=== PATIENT | female | born 1955 ===

== ENCOUNTER 2021-03-03 11:22 | Outpatient (REF) | payer OTHER, SELFPAY | END 2021-03-03 11:23 | disposition home or self-care (01) | LOC: HO.LAB 11:22 | PROVIDERS: Visit Provider Internal Medicine | DX: Z20.822 Contact with and (suspected) exposure to COVID-19 (principal) | CPT/HCPCS: C9803; U0003; U0005 ==

== ENCOUNTER 2021-03-04 09:23 | Emergency (ER) | payer OTHER, SELFPAY ==
--- NOTE | 2021-03-04 09:35 | ED.NAVMDI ---
HPI - Nausea/Vomiting/Diarrhea General Chief complaint: Dizziness Stated complaint: vomiting Time Seen by Provider: 03/04/21 09:33 Source: patient Mode of arrival: ambulatory Limitations: no limitations History of Present Illness HPI Narrative: 65 y/o female with history of asthma, s/p TYRON/BSO, HTN, HLD, anxiety and newly diagnosed DM who presents to the ER with 3 hours of nausea & vomiting. She states she feels weak and dizzy. She denies abdominal pain but is slightly sore from vomiting. She states this started at 6am when she got up to use the bathroom. When she got back to the bed she felt like the room was spinning and she was very dizzy. She felt like she was going to pass out and then started vomiting. She had a normal BM yesterday, no diarrhea. She last ate chicken wings for dinner last night. No one else ate the wings. No one else at home is vomiting. No fever, chills, or urinary symptoms. She states she was diagnosed with diabetes or pre-diabetes recently. She was not started on any medications and does not have a glucometer at home to check her sugars yet. She was tested for COVID yesterday (still pending) as she is supposed to be going to [place] tomorrow. MD elicited complaint: nausea and vomiting Onset (ago): hour(s) (3) Description of vomiting: watery Associated nausea: Yes Associated abdominal pain: Yes (soreness ) Location of pain: diffuse Pain consistency: intermittent Severity: mild Quality: aching Exacerbating factors: vomiting Relieving factors: none Associated symptoms: loss of appetite, malaise and weakness Related Data Previous Rx's Medication Instructions Recorded meclizine 25 mg PO TID PRN #10 tab 03/04/21 ondansetron 4 mg PO TID PRN #10 tab 03/04/21 Allergies Allergy/AdvReac Type Severity Reaction Status Date / Time acetaminophen [From PERCOCET] Allergy Intermediate PALPITATION Unverified 07/11/20 14:55 oxycodone [From PERCOCET] Allergy Intermediate PALPITATION Unverified 07/11/20 14:55 penicillin G [PENICILLIN G] Allergy Intermediate RASH Unverified 07/11/20 14:55 Sulfa (Sulfonamide Allergy Intermediate RASH Unverified 07/11/20 14:55 Antibiotics) [SULFA (SULFONAMIDE ANTIBIOTICS)] Review of Systems Review of Systems: Constitutional: No Fever, No Chills ENT/Mouth: No sore throat, No Rhinorrhea, No Swallowing Difficulty Cardiovascular: No Chest Pain, No SOB Respiratory: No Cough, No Sputum Gastrointestinal: + Nausea, + Vomiting, No Diarrhea, No abdominal Pain, No Hematochezia, No Melena Genitourinary: No Dysuria, No Urinary Frequency, No Hematuria Musculoskeletal: No joint pain, No Myalgias Skin: No Skin Lesions, No rash Neuro: + Weakness, No Numbness, + Dizziness, No Headache Psych: + Anxiety/Panic, No Depression Heme/Lymph: No Bruising, No Lymphadenopathy Endocrine: No Polyuria, No Polydipsia Gastrointestinal: Gastrointestinal: Reports nausea PMFSH Past Medical History Attestation statement: The following information was validated with the patient. Medical History (Updated 03/04/21 @ 11:50 by JT Huffman) Anxiety Diabetes Hyperlipidemia Hypertension Surgical History (Updated 03/04/21 @ 09:50 by Lexx Do) H/O: hysterectomy Social History Social History Alcohol intake: never Smoking Status: Never smoker Use of substances other than those prescribed or required for medical reasons: No Advance Directives: Yes Advance Directives Information Provided: Yes Advance Directives on File: No Physical Exam Vital Signs: Vital Signs: Last Vital Signs Temp 97.8 F 03/04/21 09:48 Pulse 70 03/04/21 09:57 Resp 14 03/04/21 09:48 BP 142/77 H 03/04/21 09:57 Pulse Ox 96 03/04/21 09:48 Body Mass Index 33.8 Appearance: Alert. Oriented X3. No acute distress. Eyes: Pupils equal, round and reactive to light. EOMI, no nystagmus. ENT: Pharynx normal. Normal TM's bilaterally. Neck: Normal inspection. Neck supple. CVS: Normal heart rate and rhythm. Pulses normal. Respiratory: No respiratory distress. Breath sounds normal. Abdomen: Soft and nontender. +BS x4 Skin: Skin warm and dry. Normal skin color. Normal skin turgor. No rashes. Extremities: No lower extremity edema. Neuro: Oriented X 3. No motor deficit. No sensory deficit. Normal heel to oropeza and normal finger to nose bilaterally. Steady gait. Speech is normal. CN II-XII intact. Course Course Course Narrative: 65 y/o female presenting with acute onset of dizziness and vomiting that started 3-4 hours prior to arrival. Reported feeling like the room was spinning and pre-syncopal when she was vomiting. No abdominal pain. Neuro exam is non-focal. Dizziness significantly improved when she arrived, still nauseated. Will check orthostatics, labs, COVID, EKG. Doubt acute CVA given improvement and non-focal exam. Will treat with meclizine and reassess. Reevaluation(s) Reevaluation #1: Lab workup unremarkable. EKG normal. Orthostatics negative. Dizziness improved with meclizine, now gone. Nausea resolved. She is comfortable with d/c home, plan to f/u with PCP. Warning signs discussed to warrant emergent reassessment. Stable for d/c. MDM - Nausea/Vomiting/Diarrhea Medical Records Attestation: I reviewed the patient's medical records. Lab Data Attestation: I reviewed the patient's lab results. Result diagrams: 03/04/21 09:51 03/04/21 09:51 Labs: Lab Results 03/04/21 03/04/21 03/04/21 Range/Units 09:42 09:51 09:51 WBC 5.5 (4.8-10.8) X10*3/uL RBC 5.09 (4.20-5.50) X10*6/uL Hgb 11.9 L (12.0-16.0) g/dl Hct 38.6 (37-47) % MCV 75.8 L (80-98) fL MCH 23.4 L (27.0-33.0) pg MCHC 30.8 L (31.0-35.0) g/dl RDW 14.9 (11.0-16.0) % Plt Count 280 (160-400) X10*3/uL MPV 10.1 (9.4-12.3) fL Immature Gran % (Auto) 0.4 (0.0-0.4) % Neut % (Auto) 75.3 H (45-73) % Lymph % (Auto) 18.5 L (20-40) % [place] % (Auto) 4.8 (2-11) % Eos % (Auto) 0.4 (0-4) % Baso % (Auto) 0.6 (0-2) % Lymph # (Auto) 1.0 L (1.2-4.9) X10*3/uL [place] # (Auto) 0.3 (0.1-1.2) X10*3/uL Eos # (Auto) 0.0 (0.0-0.4) X10*3/uL Baso # (Auto) 0.0 (0.0-0.2) X10*3/uL Abs Immat Gran (auto) 0.02 (0.00-0.03) X10*3/uL Absolute Neuts (auto) 4.1 (2.0-8.3) X10*3/uL Absolute Nucleated RBC 0.000 (0.0-0.012) X10*3/uL Nucleated RBC % (auto) 0.0 (0.0-0.2) /100WBC Hold Blue Top SEE NOTE Sodium (135-145) mmol/L Potassium (3.3-5.1) mmol/L Chloride (96-108) mmol/L Carbon Dioxide (22-29) mmol/L Anion Gap (12-20) BUN (9-16) mg/dL Creatinine (0.5-1.4) mg/dL Estim Creat Clear Calc Estimated GFR POC Glucose 140 H (60-115) mg/dL Random Glucose (60-115) mg/dL Calcium (8.4-10.2) mg/dL Magnesium (1.6-2.6) mg/dL Total Bilirubin (0.0-1.0) mg/dL Direct Bilirubin (0.0-0.5) mg/dL AST (5-31) U/L ALT (0-31) U/L Alkaline Phosphatase (39-117) U/L Troponin I High Sens (<3.5-17.0) ng/L Total Protein (6.5-8.0) g/dL Albumin (3.5-5.0) g/dL Lipase (8-78) U/L Urine Color Urine Appearance Urine pH (5.0-8.0) Ur Specific [place] (1.005-1.025) Urine Protein (NEG-TRACE) MG/DL Urine Glucose (UA) (NEG) MG/DL Urine Ketones (NEG) MG/DL Urine Blood (NEG) Urine Nitrite (NEG) Ur Leukocyte Esterase (NEG) Coronavirus (PCR) (Negative) Influenza Type A (PCR) (Negative) Influenza Type B (PCR) (Negative) RSV RNA Qual (PCR) (Negative) 03/04/21 03/04/21 03/04/21 Range/Units 09:51 09:51 10:18 WBC (4.8-10.8) X10*3/uL RBC (4.20-5.50) X10*6/uL Hgb (12.0-16.0) g/dl Hct (37-47) % MCV (80-98) fL MCH (27.0-33.0) pg MCHC (31.0-35.0) g/dl RDW (11.0-16.0) % Plt Count (160-400) X10*3/uL MPV (9.4-12.3) fL Immature Gran % (Auto) (0.0-0.4) % Neut % (Auto) (45-73) % Lymph % (Auto) (20-40) % [place] % (Auto) (2-11) % Eos % (Auto) (0-4) % Baso % (Auto) (0-2) % Lymph # (Auto) (1.2-4.9) X10*3/uL [place] # (Auto) (0.1-1.2) X10*3/uL Eos # (Auto) (0.0-0.4) X10*3/uL Baso # (Auto) (0.0-0.2) X10*3/uL Abs Immat Gran (auto) (0.00-0.03) X10*3/uL Absolute Neuts (auto) (2.0-8.3) X10*3/uL Absolute Nucleated RBC (0.0-0.012) X10*3/uL Nucleated RBC % (auto) (0.0-0.2) /100WBC Hold Blue Top Sodium 139 (135-145) mmol/L Potassium 4.1 (3.3-5.1) mmol/L Chloride 104 (96-108) mmol/L Carbon Dioxide 27 (22-29) mmol/L Anion Gap 12 (12-20) BUN 15 (9-16) mg/dL Creatinine 0.78 (0.5-1.4) mg/dL Estim Creat Clear Calc 74.1 Estimated GFR > 60 POC Glucose (60-115) mg/dL Random Glucose 155 H (60-115) mg/dL Calcium 9.4 (8.4-10.2) mg/dL Magnesium 1.9 (1.6-2.6) mg/dL Total Bilirubin 0.4 (0.0-1.0) mg/dL Direct Bilirubin 0.2 (0.0-0.5) mg/dL AST 29 (5-31) U/L ALT 35 H (0-31) U/L Alkaline Phosphatase 68 (39-117) U/L Troponin I High Sens < 3.5 (<3.5-17.0) ng/L Total Protein 7.2 (6.5-8.0) g/dL Albumin 4.2 (3.5-5.0) g/dL Lipase 37 (8-78) U/L Urine Color Urine Appearance Urine pH (5.0-8.0) Ur Specific [place] (1.005-1.025) Urine Protein (NEG-TRACE) MG/DL Urine Glucose (UA) (NEG) MG/DL Urine Ketones (NEG) MG/DL Urine Blood (NEG) Urine Nitrite (NEG) Ur Leukocyte Esterase (NEG) Coronavirus (PCR) NEGATIVE (Negative) Influenza Type A (PCR) NEGATIVE (Negative) Influenza Type B (PCR) NEGATIVE (Negative) RSV RNA Qual (PCR) NEGATIVE (Negative) 03/04/21 Range/Units 11:19 WBC (4.8-10.8) X10*3/uL RBC (4.20-5.50) X10*6/uL Hgb (12.0-16.0) g/dl Hct (37-47) % MCV (80-98) fL MCH (27.0-33.0) pg MCHC (31.0-35.0) g/dl RDW (11.0-16.0) % Plt Count (160-400) X10*3/uL MPV (9.4-12.3) fL Immature Gran % (Auto) (0.0-0.4) % Neut % (Auto) (45-73) % Lymph % (Auto) (20-40) % [place] % (Auto) (2-11) % Eos % (Auto) (0-4) % Baso % (Auto) (0-2) % Lymph # (Auto) (1.2-4.9) X10*3/uL [place] # (Auto) (0.1-1.2) X10*3/uL Eos # (Auto) (0.0-0.4) X10*3/uL Baso # (Auto) (0.0-0.2) X10*3/uL Abs Immat Gran (auto) (0.00-0.03) X10*3/uL Absolute Neuts (auto) (2.0-8.3) X10*3/uL Absolute Nucleated RBC (0.0-0.012) X10*3/uL Nucleated RBC % (auto) (0.0-0.2) /100WBC Hold Blue Top Sodium (135-145) mmol/L Potassium (3.3-5.1) mmol/L Chloride (96-108) mmol/L Carbon Dioxide (22-29) mmol/L Anion Gap (12-20) BUN (9-16) mg/dL Creatinine (0.5-1.4) mg/dL Estim Creat Clear Calc Estimated GFR POC Glucose (60-115) mg/dL Random Glucose (60-115) mg/dL Calcium (8.4-10.2) mg/dL Magnesium (1.6-2.6) mg/dL Total Bilirubin (0.0-1.0) mg/dL Direct Bilirubin (0.0-0.5) mg/dL AST (5-31) U/L ALT (0-31) U/L Alkaline Phosphatase (39-117) U/L Troponin I High Sens (<3.5-17.0) ng/L Total Protein (6.5-8.0) g/dL Albumin (3.5-5.0) g/dL Lipase (8-78) U/L Urine Color YELLOW Urine Appearance CLEAR Urine pH 6.5 (5.0-8.0) Ur Specific [place] 1.015 (1.005-1.025) Urine Protein NEG (NEG-TRACE) MG/DL Urine Glucose (UA) NEG (NEG) MG/DL Urine Ketones NEG (NEG) MG/DL Urine Blood NEG (NEG) Urine Nitrite NEG (NEG) Ur Leukocyte Esterase NEG (NEG) Coronavirus (PCR) (Negative) Influenza Type A (PCR) (Negative) Influenza Type B (PCR) (Negative) RSV RNA Qual (PCR) (Negative) ECG Data Attestation: I personally reviewed and interpreted this ECG as follows: ECG interpretation date: 03/04/21 ECG interpretation time: 09:58 Interpretation: normal sinus rhythm, HR 64 bpm, normal LA interval, no ST segment elevations or depressions Discharge Plan Discharge Clinical Impression: Vertigo Patient Disposition: Home, Self-Care Instructions: Vertigo (ED) Additional Instructions: Your lab workup today was unremarkable. Your EKG was normal. You were negative for COVID, Flu and RSV. Your dizziness is likely due to vertigo. Take the prescribed medication as needed for dizziness. When changing positions do so slowly. Drink plenty of water and stay hydrated. Follow up with your doctor this week. If you have recurrent dizziness or develop weakness, numbness, tingling, difficulty walking call 911 or come back to the ER for further evaluation. Prescriptions: New meclizine 25 mg tablet 25 mg PO TID PRN (Reason: dizziness) Qty: 10 RF: 0 ondansetron 4 mg tablet,disintegrating 4 mg PO TID PRN (Reason: nausea and vomiting) Qty: 10 RF: 0 Interventions: ED Discharge Assessment Last Done: 03/04/21 12:22 Discharge Date/Time: 03/04/21 12:23
--- NOTE | 2021-03-04 09:43 | ECG_ITS ---
Test Reason : DIZZINESS Blood Pressure : / mmHG Vent. Rate : 064 BPM Atrial Rate : 064 BPM P-R Int : 148 ms QRS Dur : 088 ms QT Int : 456 ms P-R-T Axes : 041 025 065 degrees QTc Int : 470 ms Normal sinus rhythm Normal ECG No previous ECGs available Referred By: Jackie Tate Electronically Signed By:Gaudencio Ramirez
[2021-03-04 09:47] LABS: Glucose, Whole Blood 140 mg/dL (60-115)
[2021-03-04 09:48] VITALS: BP 162/79; PULSE 52; RESP 14; TEMP 36.6; O2SAT 96; BMI 33.8
[2021-03-04 09:53] VITALS: BP 158/84; PULSE 62
[2021-03-04 09:54] VITALS: BP 157/89; PULSE 67
[2021-03-04 09:57] VITALS: BP 142/77; PULSE 70
[2021-03-04] MEDS: ondansetron HCL 4 MG/2 ML VIAL IVPUSH (09:57)
[2021-03-04] MEDS: 0.9 % Sodium Chloride 1,000 ML 999 ML IVCONT (09:57)
[2021-03-04 09:58] LABS: MANUAL DIFF FLAG NO
[2021-03-04 10:04] LABS: Basophils Percent Auto 0.6 % (0-2); Eosinophils Percent Auto 0.4 % (0-4); Hematocrit 38.6 % (37-47); Hemoglobin 11.9 g/dl (12.0-16.0); Imm Gran Abs Auto 0.02 X10*3/uL (0.00-0.03); Imm Gran Pct Auto 0.4 % (0.0-0.4); Lymphocytes Percent Auto 18.5 % (20-40); Mean Corpuscular HGB Conc 30.8 g/dl (31.0-35.0); Mean Corpuscular Hemoglobin 23.4 pg (27.0-33.0); Mean Corpuscular Volume 75.8 fL (80-98); Mean Platelet Volume 10.1 fL (9.4-12.3); Monocytes Absolute Auto 0.3 X10*3/uL (0.1-1.2); Monocytes Percent Auto 4.8 % (2-11); Neutrophils Absolute Auto 4.1 X10*3/uL (2.0-8.3); Neutrophils Percent Auto 75.3 % (45-73); Platelet Count 280 X10*3/uL (160-400); Red Blood Count 5.09 X10*6/uL (4.20-5.50); Red Cell Distribution Width 14.9 % (11.0-16.0); White Blood Count 5.5 X10*3/uL (4.8-10.8)
[2021-03-04 10:27] LABS: Alanine Aminotransferase 35 U/L (0-31); Albumin Level 4.2 g/dL (3.5-5.0); Alkaline Phosphatase 68 U/L (39-117); Anion Gap 12 (12-20); Aspartate Amino Transferase 29 U/L (5-31); Bilirubin Direct 0.2 mg/dL (0.0-0.5); Bilirubin Total 0.4 mg/dL (0.0-1.0); Blood Urea Nitrogen 15 mg/dL (9-16); Calcium 9.4 mg/dL (8.4-10.2); Carbon Dioxide 27 mmol/L (22-29); Chloride 104 mmol/L (96-108); Creatinine Clr Calc Pharmacy 74.1; Estimated Glomerular Filt Rate > 60; Glucose Random 155 mg/dL (60-115); Lipase 37 U/L (8-78); Magnesium 1.9 mg/dL (1.6-2.6); Potassium 4.1 mmol/L (3.3-5.1); Sodium 139 mmol/L (135-145); Total Protein 7.2 g/dL (6.5-8.0)
[2021-03-04 10:38] LABS: Troponin-I High Sensitivity < 3.5 ng/L (<3.5-17.0)
[2021-03-04] MEDS: Meclizine HCl 25 MG TABLET PO (10:48)
[2021-03-04 11:08] LABS: Influenza A PCR NEGATIVE (Negative); Influenza B PCR NEGATIVE (Negative); Resp Syncy Virus RNA Qual PCR NEGATIVE (Negative); SARS COV2 PCR INHOUSE NEGATIVE (Negative)
[2021-03-04 11:40] LABS: Glucose Urine UA NEG (NEG); Leukocyte Esterase Urine NEG (NEG); Nitrite Urine NEG (NEG); PH 6.5 (5.0-8.0); Specific Gravity - Urine 1.015 (1.005-1.025); Urine Blood NEG (NEG); Urine Ketones NEG (NEG); Urine Protein NEG (NEG-TRACE)
[2021-03-04 11:41] LABS: Appearance Urine CLEAR; Color Urine YELLOW
== END 2021-03-04 12:23 | disposition home or self-care (01) ==
PROVIDERS: Physician Assistant; Emergency Provider Emergency Medicine; PCP Internal Medicine
DX: R42 Dizziness and giddiness (principal); Z20.822 Contact with and (suspected) exposure to COVID-19; R11.2 Nausea with vomiting, unspecified; I10 Essential (primary) hypertension; E78.5 Hyperlipidemia, unspecified; F41.9 Anxiety disorder, unspecified; E11.9 Type 2 diabetes mellitus without complications
CPT/HCPCS: 0241U; 36415; 80048; 80076; 81003; 82947; 83690; 83735; 84484; 85025; 93005; 96361; 96374; 99284; J2405

== ENCOUNTER 2022-02-02 10:15 | Emergency (ER) | payer OTHER, SELFPAY ==
--- NOTE | ~2022-02-02 | CT_ITS ---
EXAMINATION: CT HEAD WITHOUT CONTRAST CLINICAL INFORMATION: Left-sided headache COMPARISON: None TECHNIQUE: Contiguous axial imaging was performed from the skull base to vertex without intravenous administration of contrast. This CT examination was performed using dose optimization techniques as appropriate, variously including the following: *Automated exposure control *Adjustment of mA and/or kV according to patient size (this includes techniques or standardized protocols for targeted exams where dose is matched to indication/reason for exam; i.e. extremities or head) *Use of iterative reconstruction technique DLP: 606 mGy-cm FINDINGS: There is no evidence of acute intracranial hemorrhage or territorial infarction. No abnormal mass effect or midline shift is seen. Anna to white matter differentiation is well preserved. No extra-axial fluid collections are identified. The ventricles are normal in size. There is no abnormal attenuation within the brain parenchyma. The osseous structures and soft tissues are normal. The mastoid air cells and visualized portions of the paranasal sinuses are well aerated. CT/CT head/brain wo con IMPRESSION: Unremarkable exam.
[2022-02-02 10:21] VITALS: BP 155/95; PULSE 92; RESP 18; TEMP 36; O2SAT 96; BMI 34.2
[2022-02-02 10:37] LABS: MANUAL DIFF FLAG NO
[2022-02-02 10:39] LABS: Basophils Percent Auto 0.7 % (0-2); Eosinophils Absolute Auto 0.2 X10*3/uL (0.0-0.4); Eosinophils Percent Auto 2.6 % (0-4); Hematocrit 41.5 % (37.0-47.0); Hemoglobin 12.7 g/dl (12.0-16.0); Imm Gran Abs Auto 0.01 X10*3/uL (0.00-0.03); Imm Gran Pct Auto 0.2 % (0.0-0.4); Lymphocytes Absolute Auto 1.5 X10*3/uL (1.2-4.9); Lymphocytes Percent Auto 26.6 % (20-40); Mean Corpuscular HGB Conc 30.6 g/dl (31.0-35.0); Mean Corpuscular Hemoglobin 23.1 pg (27.0-33.0); Mean Corpuscular Volume 75.5 fL (80.0-98.0); Mean Platelet Volume 9.9 fL (9.4-12.3); Monocytes Absolute Auto 0.5 X10*3/uL (0.1-1.2); Monocytes Percent Auto 8.7 % (2-11); Neutrophils Absolute Auto 3.5 x10*3/uL (2.0-8.3); Neutrophils Percent Auto 61.2 % (45-73); Platelet Count 309 X10*3/uL (160-400); Red Cell Distribution Width 14.6 % (11.0-16.0); White Blood Count 5.8 X10*3/uL (4.8-10.8)
[2022-02-02 10:54] LABS: Alanine Aminotransferase 27 U/L (0-31); Albumin Level 4.4 g/dL (3.5-5.0); Alkaline Phosphatase 75 U/L (39-117); Anion Gap 11 (12-20); Aspartate Amino Transferase 23 U/L (5-31); Bilirubin Total 0.2 mg/dL (0.0-1.0); Blood Urea Nitrogen 14 mg/dL (9-16); Calcium 10.3 mg/dL (8.4-10.2); Carbon Dioxide 28 mmol/L (22-29); Chloride 104 mmol/L (96-108); Creatinine Clr Calc Pharmacy 73.5; Estimated Glomerular Filt Rate > 60; Glucose Random 103 mg/dL (60-115); Potassium 4.3 mmol/L (3.3-5.1); Sodium 139 mmol/L (135-145); Total Protein 7.7 g/dL (6.5-8.0)
[2022-02-02 11:04] LABS: Appearance Urine CLEAR; Color Urine YELLOW; Glucose Urine UA NEG (NEG); Leukocyte Esterase Urine NEG (NEG); Nitrite Urine NEG (NEG); PH 5.5 (5.0-8.0); Specific Gravity - Urine <= 1.005 (1.005-1.025); Urine Blood NEG (NEG); Urine Ketones NEG (NEG); Urine Protein NEG (NEG-TRACE)
--- NOTE | 2022-02-02 11:31 | ED_ITS ---
HPI - General Adult General Chief complaint: General Medical Stated complaint: eye pressure Time Seen by Provider: 02/02/22 11:19 Source: patient Mode of arrival: ambulatory Limitations: no limitations History of Present Illness HPI narrative: 66-year-old female history of high blood pressure presents to ED for 3 days of left eye pain described as pressure with eye redness, photophobia and left-sided headache. Patient denies any loss of vision or blurry vision. Patient denies any recent head trauma. Patient states strong family history of glaucoma with lead to blindness so she came to the ED to be evaluated. Patient states she had similar episode in December and was informed by her eye doctor that she had eye inflammation and was placed on steroid eyedrops. Patient does not were contacts. patient does wear glasses. Related Data Previous Rx's Medication Instructions Recorded meclizine 25 mg tablet 25 mg PO TID PRN #10 tab 03/04/21 ondansetron 4 mg disintegrating 4 mg PO TID PRN #10 tab 03/04/21 tablet naproxen 500 mg tablet 500 mg PO BID PRN 10 Days #20 tab 02/02/22 prednisolone acetate 1 % eye 1 drp OPHTHALMIC (EYE) QID 5 Days 02/02/22 drops,suspension (Pred Forte) #15 ml Allergies Allergy/AdvReac Type Severity Reaction Status Date / Time acetaminophen [From PERCOCET] Allergy Intermediate PALPITATION Unverified 07/11/20 14:55 oxycodone [From PERCOCET] Allergy Intermediate PALPITATION Unverified 07/11/20 14:55 penicillin G [PENICILLIN G] Allergy Intermediate RASH Unverified 07/11/20 14:55 Sulfa (Sulfonamide Allergy Intermediate RASH Unverified 07/11/20 14:55 Antibiotics) [SULFA (SULFONAMIDE ANTIBIOTICS)] Review of Systems Review of Systems: Left eye redness /high pressure /photophobia. Yes all other systems are reviewed and are negative FOR[facility]LY [facility], [facility] Past Medical History Medical History (Updated 02/02/22 @ 16:34 by JT Marr) Anxiety Diabetes Hyperlipidemia Hypertension Surgical History (Updated 03/04/21 @ 09:50 by Lexx Do) H/O: hysterectomy Social History Social History Alcohol intake: never Advance Directives: No Advance Directives Information Provided: Yes Patient : No Physical Exam ED Vital Signs: Vital Signs - 24 hr 02/02/22 10:21 02/02/22 15:09 Temperature 96.8 F 97.9 F Pulse Rate 92 61 Respiratory Rate 18 16 Blood Pressure 155/95 H 147/84 H Pulse Oximetry 96 98 BMI result Body Mass Index 34.2 Const General: cooperative, healthy appearing, comfortable and no acute distress Orientation/consciousness: patient oriented x3 [facility] Other: Negative for any temporal tenderness on palpation Head: Yes normal to inspection, Yes No palpable skull fracture present, Yes normocephalic and Yes atraumatic Eyes Other: Left eye; Positive for conjunctival and scleral redness. positive for photophobia. Tonometry Presure 7. fluorescent dye test under Wood's lamp negative for corneal abrasion. Visual acuity 20/40 Right eye; Normal. Tonometry pressure 6. Fluorescein dye test on the wounds lab negative for corneal abrasion. Visual acuity 20/40. Neck Neck: Yes normal visual inspection, Yes full ROM, Yes no lymphadenopathy, Yes no meningeal signs, Yes trachea midline, Yes supple, No anterior neck swelling and No tender Chest Chest palpation & inspection: normal inspection of the chest and normal palpation of entire chest wall Resp Effort & Inspection: normal respiratory effort and able to speak in complete sentences Auscultation: clear to auscultation bilaterally Cardio Jugular venous distension: no JVD Heart sounds: S1 normal heart sound present and S2 normal heart sound present GI Inspection: Yes normal to inspection and No abdominal wall ecchymosis Palpation (GI): Soft to palpation, not firm, nontender, no guarding and not rigid General: No CVA tenderness and Yes no CVA tenderness Back/Spine/Pelvis Back: no CVA tenderness, No CVA tenderness and No back tenderness Skin General skin exam: no rashes or lesions noted and elasticity normal Neuro Other: patient alert oriented x3. Negative facial droop. Negative slurred speech. Negative Romberg. Negative pronator drift. All extremities equal strength 5+. [id number] and rapid hand movement intact. NIH score is 0. General: patient oriented x3, gait normal, no meningeal signs and CN's II-XI intact bilaterally Cranial nerves: Yes CN's II-XII intact bilaterally Extrem Other: normal General: Yes normal to inspection and Yes full ROM Psych Appearance: grossly normal, well kempt and not disheveled Course Course Course Narrative: labs ordered. Eye exam done using fluorescein dye and wounds lamp. Reevaluation(s) Reevaluation #1: Basic labs normal. due to age head CT Ordered. ESR CRP slightly elevated, but not high enough to indicate giant cell arthritis and patient does not have any change in vision or any left temporal tenderness on palpation. Patient main complaint left eye pressure and photophobia. Not suspect meningitis. Physical exam does not indicate meningitis. Possible differential iritis, episcleritis, or scleritis. Waiting for head CT scan result. Time: 13:44 Reevaluation #2: Head CT scan came back normal. Case discussed with Dr. Padilla of Ophthalmology. he was informed of patient's history, physical exam and labs. He recommend patient be discharged with Pred Forte steroid eye drop 4 times a day and labs to be sent to check for autoimmune disease such as GAGAN, RA factor, lipase, and FTA antibodies. Patient informed to follow up tomorrow with Dr. Padilla of Ophthalmology. Time: 16:01 Medical Decision Making MDM Narrative Medical decision making narrative: left eye pain. Scleritis Lab Data Result diagrams: 02/02/22 10:31 02/02/22 10:31 Labs: Lab Results 02/02/22 02/02/22 02/02/22 Range/Units 10:31 10:31 10:31 WBC 5.8 (4.8-10.8) X10*3/uL RBC 5.50 (4.20-5.50) X10*6/uL Hgb 12.7 (12.0-16.0) g/dl Hct 41.5 (37.0-47.0) % MCV 75.5 L (80.0-98.0) fL MCH 23.1 L (27.0-33.0) pg MCHC 30.6 L (31.0-35.0) g/dl RDW 14.6 (11.0-16.0) % Plt Count 309 (160-400) X10*3/uL MPV 9.9 (9.4-12.3) fL Immature Gran % (Auto) 0.2 (0.0-0.4) % Neut % (Auto) 61.2 (45-73) % Lymph % (Auto) 26.6 (20-40) % [place] % (Auto) 8.7 (2-11) % Eos % (Auto) 2.6 (0-4) % Baso % (Auto) 0.7 (0-2) % Lymph # (Auto) 1.5 (1.2-4.9) X10*3/uL [place] # (Auto) 0.5 (0.1-1.2) X10*3/uL Eos # (Auto) 0.2 (0.0-0.4) X10*3/uL Baso # (Auto) 0.0 (0.0-0.2) X10*3/uL Abs Immat Gran (auto) 0.01 (0.00-0.03) X10*3/uL Absolute Neuts (auto) 3.5 (2.0-8.3) x10*3/uL Absolute Nucleated RBC 0.000 (0.0-0.012) X10*3/uL Nucleated RBC % (auto) 0.0 (0.0-0.2) /100WBC ESR 21 H (0-20) MM/HR Sodium 139 (135-145) mmol/L Potassium 4.3 (3.3-5.1) mmol/L Chloride 104 (96-108) mmol/L Carbon Dioxide 28 (22-29) mmol/L Anion Gap 11 L (12-20) BUN 14 (9-16) mg/dL Creatinine 0.78 (0.5-1.4) mg/dL Estim Creat Clear Calc 73.5 Estimated GFR > 60 Random Glucose 103 (60-115) mg/dL Calcium 10.3 H D (8.4-10.2) mg/dL Total Bilirubin 0.2 (0.0-1.0) mg/dL AST 23 (5-31) U/L ALT 27 (0-31) U/L Alkaline Phosphatase 75 (39-117) U/L C-Reactive Protein 0.52 H (< or = 0.50) mg/dL Total Protein 7.7 (6.5-8.0) g/dL Albumin 4.4 (3.5-5.0) g/dL Urine Color Urine Appearance Urine pH (5.0-8.0) Ur Specific [place] (1.005-1.025) Urine Protein (NEG-TRACE) MG/DL Urine Glucose (UA) (NEG) MG/DL Urine Ketones (NEG) MG/DL Urine Blood (NEG) Urine Nitrite (NEG) Ur Leukocyte Esterase (NEG) Rheumatoid Factor (<15.0) IU/mL 02/02/22 02/02/22 Range/Units 10:56 16:15 WBC (4.8-10.8) X10*3/uL RBC (4.20-5.50) X10*6/uL Hgb (12.0-16.0) g/dl Hct (37.0-47.0) % MCV (80.0-98.0) fL MCH (27.0-33.0) pg MCHC (31.0-35.0) g/dl RDW (11.0-16.0) % Plt Count (160-400) X10*3/uL MPV (9.4-12.3) fL Immature Gran % (Auto) (0.0-0.4) % Neut % (Auto) (45-73) % Lymph % (Auto) (20-40) % [place] % (Auto) (2-11) % Eos % (Auto) (0-4) % Baso % (Auto) (0-2) % Lymph # (Auto) (1.2-4.9) X10*3/uL [place] # (Auto) (0.1-1.2) X10*3/uL Eos # (Auto) (0.0-0.4) X10*3/uL Baso # (Auto) (0.0-0.2) X10*3/uL Abs Immat Gran (auto) (0.00-0.03) X10*3/uL Absolute Neuts (auto) (2.0-8.3) x10*3/uL Absolute Nucleated RBC (0.0-0.012) X10*3/uL Nucleated RBC % (auto) (0.0-0.2) /100WBC ESR (0-20) MM/HR Sodium (135-145) mmol/L Potassium (3.3-5.1) mmol/L Chloride (96-108) mmol/L Carbon Dioxide (22-29) mmol/L Anion Gap (12-20) BUN (9-16) mg/dL Creatinine (0.5-1.4) mg/dL Estim Creat Clear Calc Estimated GFR Random Glucose (60-115) mg/dL Calcium (8.4-10.2) mg/dL Total Bilirubin (0.0-1.0) mg/dL AST (5-31) U/L ALT (0-31) U/L Alkaline Phosphatase (39-117) U/L C-Reactive Protein (< or = 0.50) mg/dL Total Protein (6.5-8.0) g/dL Albumin (3.5-5.0) g/dL Urine Color YELLOW Urine Appearance CLEAR Urine pH 5.5 (5.0-8.0) Ur Specific [place] <= 1.005 (1.005-1.025) Urine Protein NEG (NEG-TRACE) MG/DL Urine Glucose (UA) NEG (NEG) MG/DL Urine Ketones NEG (NEG) MG/DL Urine Blood NEG (NEG) Urine Nitrite NEG (NEG) Ur Leukocyte Esterase NEG (NEG) Rheumatoid Factor < 15.0 (<15.0) IU/mL Discharge Plan Discharge Clinical Impression: Acute left eye pain, Episcleritis of left eye Patient Disposition: Home, Self-Care Instructions: Eye Pain (ED) Additional Instructions: your head CT scan came back normal. Your eye exam came back negative for glaucoma, conjunctivitis, and corneal abrasion. Spoke with charging crane operator Dr. Padilla recommend he follow up with him tomorrow. Return to the ED for worsening eye pain, loss of vision, change in vision, neck stiffness, photophobia, eye discharge, dizziness, slurred speech, facial droop, fever, chills, paralysis of extremities, chest pain, shortness of breath, or any other concerning symptoms. Prescriptions: New prednisolone acetate [Pred Forte] 1 % drops,suspension 1 drp ophthalmic (eye) QID 5 Days Qty: 15 0RF naproxen 500 mg tablet 500 mg PO BID PRN (Reason: pain) 10 Days Qty: 20 0RF No Action meclizine 25 mg tablet 25 mg PO TID PRN (Reason: dizziness) Qty: 10 0RF ondansetron 4 mg tablet,disintegrating 4 mg PO TID PRN (Reason: nausea and vomiting) Qty: 10 0RF Referrals: Adalberto Padilla [Physician] - ( Left eye redness and pain. Possible episcleritis.) Stand Alone Forms: Work/School Release Interventions: ED Discharge Assessment Last Done: 02/02/22 17:13 Discharge Date/Time: 02/02/22 17:11 Print Language: Malay
[2022-02-02] MEDS: Tetracaine HCl/PF 0.5% Oph Sol 4 ML DROPS 3 DROP EYE-LEFT (11:43)
[2022-02-02] MEDS: Fluorescein Sodium STRIP 1 STRIP EYE-LEFT (11:44)
[2022-02-02 12:30] LABS: C Reactive Protein 0.52 mg/dL (< or = 0.50)
[2022-02-02 13:03] LABS: Erythrocyte Sedimentation Rate 21 MM/HR (0-20)
[2022-02-02 15:09] VITALS: BP 147/84; PULSE 61; RESP 16; TEMP 36.6; O2SAT 98
[2022-02-02 16:36] LABS: Rheumatoid Factor < 15.0 IU/mL (<15.0)
--- NOTE | 2022-02-02 17:07 | PC.NURSE ---
ok for dc per primary rn pt dressed, sitting in chair. awaiting paperwork. pt awake, alert and oriented x 3. skin warm and dry. resp unlabored. denies n/v. no c/o dizziness. neuros intact.
[2022-02-04 15:06] LABS: Anti Nuclear Antibody Screen NEGATIVE (NEGATIVE)
[2022-02-05 22:01] LABS: Treponema pallidum Ab FTA ABS Nonreactive (Nonreactive)
[2022-02-08 06:12] LABS: Angiotensin Converting Enzyme 7 U/L (9-67)
== END 2022-02-02 17:11 | disposition home or self-care (01) ==
PROVIDERS: Physician Assistant; Emergency Provider Emergency Medicine; PCP Internal Medicine
DX: H57.12 Ocular pain, left eye (principal); H15.102 Unspecified episcleritis, left eye; I10 Essential (primary) hypertension; E11.9 Type 2 diabetes mellitus without complications; E78.5 Hyperlipidemia, unspecified
CPT/HCPCS: 36415; 70450; 80053; 81003; 82164; 85025; 85652; 86038; 86039; 86140; 86431; 86780; 99284

== ENCOUNTER 2022-02-22 08:48 | Emergency (ER) | payer OTHER, SELFPAY ==
[2022-02-22 08:53] VITALS: BP 184/89; PULSE 75; RESP 20; TEMP 36.3; O2SAT 97; BMI 34.2
[2022-02-22 09:25] LABS: MANUAL DIFF FLAG NO
[2022-02-22 09:28] LABS: Basophils Percent Auto 0.7 % (0-2); Eosinophils Absolute Auto 0.2 X10*3/uL (0.0-0.4); Eosinophils Percent Auto 4.7 % (0-4); Hemoglobin 12.2 g/dl (12.0-16.0); Imm Gran Abs Auto 0.01 X10*3/uL (0.00-0.03); Imm Gran Pct Auto 0.2 % (0.0-0.4); Lymphocytes Absolute Auto 1.4 X10*3/uL (1.2-4.9); Lymphocytes Percent Auto 34.6 % (20-40); Mean Corpuscular HGB Conc 30.5 g/dl (31.0-35.0); Mean Corpuscular Hemoglobin 23.4 pg (27.0-33.0); Mean Corpuscular Volume 76.6 fL (80.0-98.0); Mean Platelet Volume 9.9 fL (9.4-12.3); Monocytes Absolute Auto 0.4 X10*3/uL (0.1-1.2); Monocytes Percent Auto 10.8 % (2-11); Platelet Count 277 X10*3/uL (160-400); Red Blood Count 5.22 X10*6/uL (4.20-5.50); Red Cell Distribution Width 14.8 % (11.0-16.0); White Blood Count 4.1 X10*3/uL (4.8-10.8)
[2022-02-22 09:52] LABS: Anion Gap 11 (12-20); Blood Urea Nitrogen 9 mg/dL (9-16); Calcium 9.6 mg/dL (8.4-10.2); Carbon Dioxide 30 mmol/L (22-29); Chloride 103 mmol/L (96-108); Creatinine Clr Calc Pharmacy 76.5; Estimated Glomerular Filt Rate > 60; Glucose Random 98 mg/dL (60-115); Sodium 139 mmol/L (135-145)
--- NOTE | 2022-02-22 09:56 | ED_ITS ---
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 Mode of arrival: ambulatory Limitations: no limitations History of Present Illness HPI narrative: 66 yo female with history of HTN, HLD Related Data Previous Rx's Medication Instructions Recorded meclizine 25 mg tablet 25 mg PO TID PRN #10 tab 03/04/21 ondansetron 4 mg disintegrating 4 mg PO TID PRN #10 tab 03/04/21 tablet naproxen 500 mg tablet 500 mg PO BID PRN 10 Days #20 tab 02/02/22 prednisolone acetate 1 % eye 1 drp OPHTHALMIC (EYE) QID 5 Days 02/02/22 drops,suspension (Pred Forte) #15 ml Allergies Allergy/AdvReac Type Severity Reaction Status Date / Time acetaminophen [From PERCOCET] Allergy Intermediate PALPITATION Unverified 07/11/20 14:55 oxycodone [From PERCOCET] Allergy Intermediate PALPITATION Unverified 07/11/20 14:55 penicillin G [PENICILLIN G] Allergy Intermediate RASH Unverified 07/11/20 14:55 Sulfa (Sulfonamide Allergy Intermediate RASH Unverified 07/11/20 14:55 Antibiotics) [SULFA (SULFONAMIDE ANTIBIOTICS)] [facility] Past Medical History Medical History Anxiety Diabetes Hyperlipidemia Hypertension Surgical History H/O: hysterectomy Social History Social History Alcohol intake: never Advance Directives: No Advance Directives Information Provided: Yes Patient : No Physical Exam ED Vital Signs: Vital Signs - 24 hr 02/22/22 08:53 Temperature 97.4 F Pulse Rate 75 Respiratory Rate 20 Blood Pressure 184/89 H Pulse Oximetry 97 BMI result Body Mass Index 34.2 Medical Decision Making Lab Data Result diagrams: 02/22/22 09:22 02/22/22 09:22 Labs: Lab Results 02/22/22 02/22/22 Range/Units 09:22 09:22 WBC 4.1 L (4.8-10.8) X10*3/uL RBC 5.22 (4.20-5.50) X10*6/uL Hgb 12.2 (12.0-16.0) g/dl Hct 40.0 (37.0-47.0) % MCV 76.6 L (80.0-98.0) fL MCH 23.4 L (27.0-33.0) pg MCHC 30.5 L (31.0-35.0) g/dl RDW 14.8 (11.0-16.0) % Plt Count 277 (160-400) X10*3/uL MPV 9.9 (9.4-12.3) fL Immature Gran % (Auto) 0.2 (0.0-0.4) % Neut % (Auto) 49.0 (45-73) % Lymph % (Auto) 34.6 (20-40) % [place] % (Auto) 10.8 (2-11) % Eos % (Auto) 4.7 H (0-4) % Baso % (Auto) 0.7 (0-2) % Lymph # (Auto) 1.4 (1.2-4.9) X10*3/uL [place] # (Auto) 0.4 (0.1-1.2) X10*3/uL Eos # (Auto) 0.2 (0.0-0.4) X10*3/uL Baso # (Auto) 0.0 (0.0-0.2) X10*3/uL Abs Immat Gran (auto) 0.01 (0.00-0.03) X10*3/uL Absolute Neuts (auto) 2.0 (2.0-8.3) x10*3/uL Absolute Nucleated RBC 0.000 (0.0-0.012) X10*3/uL Nucleated RBC % (auto) 0.0 (0.0-0.2) /100WBC Sodium 139 (135-145) mmol/L Potassium 5.0 (3.3-5.1) mmol/L Chloride 103 (96-108) mmol/L Carbon Dioxide 30 H (22-29) mmol/L Anion Gap 11 L (12-20) BUN 9 (9-16) mg/dL Creatinine 0.75 (0.5-1.4) mg/dL Estim Creat Clear Calc 76.5 Estimated GFR > 60 Random Glucose 98 (60-115) mg/dL Calcium 9.6 D (8.4-10.2) mg/dL Discharge Plan Discharge Prescriptions: No Action meclizine 25 mg tablet 25 mg PO TID PRN (Reason: dizziness) Qty: 10 0RF ondansetron 4 mg tablet,disintegrating 4 mg PO TID PRN (Reason: nausea and vomiting) Qty: 10 0RF prednisolone acetate [Pred Forte] 1 % drops,suspension 1 drp ophthalmic (eye) QID 5 Days Qty: 15 0RF naproxen 500 mg tablet 500 mg PO BID PRN (Reason: pain) 10 Days Qty: 20 0RF
[2022-02-22 09:57] VITALS: O2SAT 99
[2022-02-22 10:10] VITALS: BP 186/96; PULSE 65; RESP 18; O2SAT 95
--- NOTE | 2022-02-22 10:11 | ED.GENADULT ---
HPI - General Adult General Chief complaint: Eye Problems Stated complaint: high blood pressure Time Seen by Provider: 02/22/22 09:55 Source: patient Mode of arrival: ambulatory Limitations: no limitations History of Present Illness HPI narrative: 66 y/o female with history of HTN, HLD and recently diagnosed episcleritis with concern for possible autoimmune etiology now on prednisolone gtts who presents to the ER with concerns of elevated blood pressure at home. She reports taking her blood pressure for the last few days and it has been elevated. She reports taking her blood pressure before taking her 10 mg of lisinopril and her blood pressure was 180s/100s. The last few days her blood pressure has been elevated in the 160s-170s/100s. She has been compliant with her lisinopril, admits to increased stress & anxiety lately and weight gain in the last 6 months. She cannot comment on her salt intake. MD complaint: left eye pressure and elevated BP Onset (ago): day(s) (3) Location: eyes Radiation: non-radiation Severity: mild Severity scale (1-10): 3 Quality: aching Pain Consistency: intermittent Relieving factors: none Exacerbating factors: medication Associated symptoms: denies other symptoms Treatments prior to arrival: none Related Data Previous Rx's Medication Instructions Recorded meclizine 25 mg tablet 25 mg PO TID PRN #10 tab 03/04/21 ondansetron 4 mg disintegrating 4 mg PO TID PRN #10 tab 03/04/21 tablet naproxen 500 mg tablet 500 mg PO BID PRN 10 Days #20 tab 02/02/22 prednisolone acetate 1 % eye 1 drp OPHTHALMIC (EYE) QID 5 Days 02/02/22 drops,suspension (Pred Forte) #15 ml Allergies Allergy/AdvReac Type Severity Reaction Status Date / Time acetaminophen [From PERCOCET] Allergy Intermediate PALPITATION Unverified 07/11/20 14:55 oxycodone [From PERCOCET] Allergy Intermediate PALPITATION Unverified 07/11/20 14:55 penicillin G [PENICILLIN G] Allergy Intermediate RASH Unverified 07/11/20 14:55 Sulfa (Sulfonamide Allergy Intermediate RASH Unverified 07/11/20 14:55 Antibiotics) [SULFA (SULFONAMIDE ANTIBIOTICS)] Review of Systems Review of Systems: Constitutional: No Fever, No Chills ENT/Mouth: No sore throat, No Rhinorrhea Eyes: + Eye Pain, No Swelling, No Redness, No blurred vision Cardiovascular: No Chest Pain, No SOB, No Orthopnea, No Edema Respiratory: No Cough, No Sputum, No Wheezing, No dyspnea Gastrointestinal: No Nausea, No Vomiting, No Diarrhea, No abdominal Paina Musculoskeletal: No joint pain, No Myalgias Skin: No Skin Lesions, No rash Neuro: No Weakness, No Numbness, No Dizziness, No Headache Psych: No Anxiety/Panic, No Depression Heme/Lymph: No Bruising, No Lymphadenopathy Endocrine: No Polyuria, No Polydipsia [facility] Past Medical History Medical History (Updated 02/22/22 @ 12:12 by JT Huffman) Anxiety Diabetes Hyperlipidemia Hypertension Surgical History H/O: hysterectomy Social History Social History Alcohol intake: never Advance Directives: No Advance Directives Information Provided: Yes Patient : No Physical Exam ED Vital Signs: Vital Signs - 24 hr 02/22/22 08:53 02/22/22 09:57 02/22/22 10:10 Temperature 97.4 F Pulse Rate 75 65 Respiratory Rate 20 18 Blood Pressure 184/89 H 186/96 H Pulse Oximetry 97 99 95 02/22/22 10:12 02/22/22 12:00 02/22/22 12:19 Temperature Pulse Rate 60 62 65 Respiratory Rate 18 18 16 Blood Pressure 147/68 H 168/73 H 166/83 H Pulse Oximetry 99 99 98 BMI result Body Mass Index 34.2 Appearance: Alert. Oriented X3. No acute distress. Eyes: Pupils equal, round and reactive to light. Left sclera with irregularity to the lateral aspect. mild conjunctival infection. EOMI. IOP 8 on the left ENT: Pharynx normal. Neck: Normal inspection. Neck supple. CVS: Normal heart rate and rhythm. Pulses normal. Respiratory: No respiratory distress. Breath sounds normal. Abdomen: Soft and nontender. +BS x4 Skin: Skin warm and dry. Normal skin color. Normal skin turgor. No rashes. Extremities: No lower extremity edema. No calf tenderness. Neuro: Oriented X 3. No motor deficit. No sensory deficit. Course Course Course Narrative: 66 y/o female with HTN on lisinopril, HLD and recently diagnosed episcleritis on steroid gtts presenting with HTN at home and left eye pressure. She reports overall her eye complaints are improving significantly with the drops, she is down to BID from QID. She has an appointment with the eye doctor in 2 days. IOP is 8 which is reassuring. No new eye complaints. Her BP is elevated on arrival 180/90s. Repeated was anywhere 140-170s/80-100s. No chest pain, headache or blurred vision, no signs of HTN urgency or emergency. Labs are normal. No need for urgent need to increase her lisinopril today. Discussed with patient who is in agreement to monitor BP at home and follow up with her PCP. Discussed DASH diet and other lifestyle modifications. Stress and anxiety also likely playing a role. Medical Decision Making Lab Data Result diagrams: 02/22/22 09:22 02/22/22 09:22 Labs: Lab Results 02/22/22 02/22/22 Range/Units 09:22 09:22 WBC 4.1 L (4.8-10.8) X10*3/uL RBC 5.22 (4.20-5.50) X10*6/uL Hgb 12.2 (12.0-16.0) g/dl Hct 40.0 (37.0-47.0) % MCV 76.6 L (80.0-98.0) fL MCH 23.4 L (27.0-33.0) pg MCHC 30.5 L (31.0-35.0) g/dl RDW 14.8 (11.0-16.0) % Plt Count 277 (160-400) X10*3/uL MPV 9.9 (9.4-12.3) fL Immature Gran % (Auto) 0.2 (0.0-0.4) % Neut % (Auto) 49.0 (45-73) % Lymph % (Auto) 34.6 (20-40) % [place] % (Auto) 10.8 (2-11) % Eos % (Auto) 4.7 H (0-4) % Baso % (Auto) 0.7 (0-2) % Lymph # (Auto) 1.4 (1.2-4.9) X10*3/uL [place] # (Auto) 0.4 (0.1-1.2) X10*3/uL Eos # (Auto) 0.2 (0.0-0.4) X10*3/uL Baso # (Auto) 0.0 (0.0-0.2) X10*3/uL Abs Immat Gran (auto) 0.01 (0.00-0.03) X10*3/uL Absolute Neuts (auto) 2.0 (2.0-8.3) x10*3/uL Absolute Nucleated RBC 0.000 (0.0-0.012) X10*3/uL Nucleated RBC % (auto) 0.0 (0.0-0.2) /100WBC Sodium 139 (135-145) mmol/L Potassium 5.0 (3.3-5.1) mmol/L Chloride 103 (96-108) mmol/L Carbon Dioxide 30 H (22-29) mmol/L Anion Gap 11 L (12-20) BUN 9 (9-16) mg/dL Creatinine 0.75 (0.5-1.4) mg/dL Estim Creat Clear Calc 76.5 Estimated GFR > 60 Random Glucose 98 (60-115) mg/dL Calcium 9.6 D (8.4-10.2) mg/dL Critical Care Time Critical Care Time Critical Care Time: No Discharge Plan Discharge Clinical Impression: Hypertension Patient Disposition: Home, Self-Care Instructions: DASH Eating Plan (ED), Hypertension (ED) Additional Instructions: Your lab workup today was normal. Your blood pressure today was elevated but you did not have any signs of hypertensive emergency. Recommend continuing your previously prescribed lisinopril and monitoring your BP at home once per day a few hours after taking your medication. Recommend decreasing your salt intake. Increase your aerobic exercise. Weight loss can help decrease blood pressure. Follow up with your eye doctor on Wednesday as scheduled. If you develop chest pain, severe headache or persistent vision changes associated with elevated blood pressure call your doctor or come back to the ER for further evaluation. Prescriptions: No Action meclizine 25 mg tablet 25 mg PO TID PRN (Reason: dizziness) Qty: 10 0RF ondansetron 4 mg tablet,disintegrating 4 mg PO TID PRN (Reason: nausea and vomiting) Qty: 10 0RF prednisolone acetate [Pred Forte] 1 % drops,suspension 1 drp ophthalmic (eye) QID 5 Days Qty: 15 0RF naproxen 500 mg tablet 500 mg PO BID PRN (Reason: pain) 10 Days Qty: 20 0RF Referrals: Ashley Farmer MD [Primary Care Provider] - (follow up HTN) Interventions: ED Discharge Assessment Last Done: 02/22/22 12:22 Discharge Date/Time: 02/22/22 12:23
[2022-02-22 10:12] VITALS: BP 147/68; PULSE 60; RESP 18; O2SAT 99
[2022-02-22] MEDS: Tetracaine HCl/PF 0.5% Oph Sol 4 ML DROPS 1 DROP EYE-LEFT (10:50)
[2022-02-22] MEDS: lisinopriL 10 MG TABLET PO (11:26)
[2022-02-22 12:00] VITALS: BP 168/73; PULSE 62; RESP 18; O2SAT 99
[2022-02-22 12:19] VITALS: BP 166/83; PULSE 65; RESP 16; O2SAT 98
== END 2022-02-22 12:23 | disposition home or self-care (01) ==
PROVIDERS: Emergency Provider Emergency Medicine; PCP Internal Medicine
DX: I10 Essential (primary) hypertension (principal); E11.9 Type 2 diabetes mellitus without complications; H15.109 Unspecified episcleritis, unspecified eye; Z79.899 Other long term (current) drug therapy
CPT/HCPCS: 36415; 80048; 85025; 99283

== ENCOUNTER 2024-11-06 15:28 | Inpatient (IN) | payer MEDICARE, OTHER, SELFPAY ==
--- NOTE | ~2024-11-06 | XR_ITS ---
EXAMINATION: XR CHEST CLINICAL INFORMATION: shortness of breath COMPARISON: 11/06/2024. TECHNIQUE: AP portable view of the chest was obtained. FINDINGS: Redemonstration of an elevated left hemidiaphragm. Cardiac and mediastinal contours are normal. Low lung volumes, with crowding of the bronchovascular markings both lungs. Within these confines the lungs are clear. XR/XR chest 1V IMPRESSION: 1. Low lung volumes with bronchovascular crowding. Within these confines the lungs appear clear. 2. Chronically elevated left hemidiaphragm. Electronically signed by: Miles Pena MD 11/08/2024 04:46 PM [facility]
--- NOTE | ~2024-11-06 | XR_ITS ---
EXAMINATION: XR CHEST CLINICAL INFORMATION: cough x 2 wks COMPARISON: Right RIBS and PA chest 09/18/2014. TECHNIQUE: 2 views of the chest were obtained. FINDINGS: There is moderate elevation of left hemidiaphragm with underlying atelectasis. Otherwise the lungs are expanded and clear. Heart size and poor vascularity is normal. No gross bony abnormality seen. XR/XR chest 2V IMPRESSION: Moderately limited left hemidiaphragm. It is unchanged to previous chest x-ray 09/18/2014. Electronically signed by: Mykel Jeronimo MD 11/06/2024 05:03 PM [facility]
[2024-11-06 15:38] VITALS: BP 146/84; PULSE 99; RESP 22; TEMP 36.6; O2SAT 94; BMI 33.8
--- NOTE | 2024-11-06 15:38 | ED.GENADULT ---
HPI - General Adult General Chief complaint: Upper Respiratory Symptoms Stated complaint: diff breathing low 02 sent in by provider Time Seen by Provider: 11/06/24 20:35 Source: patient Mode of arrival: ambulatory Limitations: no limitations History of Present Illness ED Provider: MELINA LAZO narrative: 69 yo female with PMH of HTN, HLD, asthma notes on and off not feeling well for weeks then started again not feeling well x 3 days. She denies fevers, but her INH are not working. She has not had any known sick contacts or travel hx. She got all of her shots but the RSV. She does not smoke. She cannot take this cough. MD complaint: URI, cough Onset (ago): day(s) (3) Location: chest Radiation: non-radiation Severity: moderate Relieving factors: rest Exacerbating factors: other (coughing) Associated symptoms: cough and shortness of breath Treatments prior to arrival: none Related Data Previous Rx's ?Medication ?Instructions ?Recorded meclizine 25 mg tablet 25 mg PO TID PRN dizziness #10 tabs 03/04/21 ondansetron 4 mg disintegrating 4 mg PO TID PRN nausea and 03/04/21 tablet vomiting #10 tabs naproxen 500 mg tablet 500 mg PO BID PRN pain 10 days #20 02/02/22 tabs prednisolone acetate 1 % eye 1 drp ophthalmic (eye) QID 5 days 02/02/22 drops,suspension (Pred Forte) #15 mL Allergies Allergy/AdvReac Type Severity Reaction Status Date / Time acetaminophen [From PERCOCET] Allergy Intermediate PALPITATION Verified 11/06/24 15:39 oxycodone [From PERCOCET] Allergy Intermediate PALPITATION Verified 11/06/24 15:39 penicillin G [PENICILLIN G] Allergy Intermediate RASH Verified 11/06/24 15:39 Sulfa (Sulfonamide Allergy Intermediate RASH Verified 11/06/24 15:39 Antibiotics) [SULFA (SULFONAMIDE ANTIBIOTICS)] Review of Systems Review of Systems: Constitutional : No Fever, pos Chills ENT/Mouth : No Hoarseness, No sore throat, No Rhinorrhea Eyes: No Redness, No Discharge, No Vision Changes Cardiovascular : No Chest Pain, positive SOB, positive Dyspnea on Exertion, No Edema Respiratory : positive Cough, No Sputum, positive Wheezing, Gastrointestinal : No Nausea, No Vomiting, No Diarrhea, No abdominal Pain Genitourinary : No Dysuria, No Hematuria Musculoskeletal : No joint pain, No Myalgias Skin : No rash Neuro : No Weakness, No Numbness, No Headache Psych : No anxiety, depression All other systems reviewed and are negative [facility] Past Medical History Attestation statement: The following information was validated with the patient. Source: old records reviewed Medical History Hyperlipidemia Hypertension Anxiety Diabetes Surgical History H/O: hysterectomy Social History Social History (Updated 11/06/24 @ 21:25 by Larissa Perez DO) Alcohol intake: never Patient Tobacco Use Status: Never used Tobacco Advance Directives: No Advance Directives Information Provided: No Do you have a plan to hurt others: No Plan Physical Exam ED Vital Signs: Vital Signs - 24 hr 11/06/24 15:38 11/06/24 20:41 11/06/24 21:02 Temperature 97.8 F 97.8 F Pulse Rate 99 100 100 Respiratory Rate 22 H 20 Blood Pressure 146/84 H 169/88 H Pulse Oximetry 94 95 Oxygen Delivery Method Room Air Room Air 11/06/24 22:10 11/06/24 22:53 11/06/24 23:29 Temperature 98.1 F Pulse Rate 99 99 Respiratory Rate 14 14 Blood Pressure 152/86 H Pulse Oximetry 91 L 91 L Oxygen Delivery Method Room Air Room Air BMI result Body Mass Index 33.8 Appearance: Alert. Oriented X3. No acute distress. Eyes: Pupils equal, round and reactive to light. ENT: Pharynx normal. Neck: Normal inspection. Neck supple. CVS: Normal heart rate and rhythm. Pulses normal. Respiratory: No respiratory distress. Breath sounds mild exp wheezes dry cough that will not stop Abdomen: Soft and nontender. Skin: Skin warm and dry. Normal skin color. Normal skin turgor. Extremities: No lower extremity edema. No calf ttp Neuro: Oriented X 3. No motor deficit. No sensory deficit. CN2-12 intact Course Course Course Narrative: This is a rapid medical exam performed by Nils Holloway NP: Additional HPI, ROS, PE not included below will be deferred to primary provider. Patient is a 69-year-old female with history of asthma, HTN, HLD presenting with complaint of shortness of breath, cough for the past 2 weeks. Symptoms had begun to resolve, then worsened again over the weekend. Subjective fevers. Speaking in 2-3 word sentences, using albuterol at home, states was gasping for air at home last night. Nonproductive cough noted in triage. Plan: viral serology, CXR Medications Administered Discontinued Medications Generic Name Dose Route Start Last Admin Trade Name Freq PRN Reason Stop Dose Admin Albuterol Sulfate 2.5 mg/ 5 mg 11/06/24 20:59 11/06/24 21:01 Albuterol Sulfate 2.5 mg INHALE 11/06/24 21:00 5 mg ONCE ONE Administration Albuterol/Ipratropium 3 ml 11/06/24 22:30 11/06/24 22:53 Albuterol/Iprat 2.5/0.5mg 3 Ml Ampul.Neb INHALE 11/06/24 22:31 3 ml ONCE ONE Administration Benzonatate 100 mg 11/06/24 20:32 11/06/24 20:40 Benzonatate 100 Mg Capsule PO 11/06/24 20:33 100 mg ONCE ONE Administration Guaifenesin 10 ml 11/06/24 21:08 11/06/24 21:38 Guaifenesin 200 Mg/10 Ml 10 Ml Liquid PO 11/06/24 21:09 10 ml ONCE ONE Administration Prednisone 40 mg 11/06/24 20:32 11/06/24 20:40 Prednisone 20 Mg Tablet PO 11/06/24 20:33 40 mg ONCE ONE Administration Medical Decision Making Medical Decision Making MDM Narrative: 69 yo female with PMH of HTN, HLD, asthma here with c/o URI symptoms cough that is really bothersome she is not labored or hypoxic suspect viral syndrome vs bronchitis - started on oral steroids, cough medications as that really is her main issues, neb therapy. I received sign-out from my colleague Dr. Perez. Patient received 2 nebulization treatments. After the 2nd neb treatment, patient was ambulated. Oxygen saturation dropped to 80% with good waveform. Patient was able to walk back to her room, oxygen slowly increased to 90% on room air. I discussed the patient with Dr. Thompson, patient being admitted. Differential Diagnosis Differential Diagnoses: The differential diagnosis associated with the presentation includes asthma, bronchitis, viral syndrome Admission/Observation Consideration of admission/observation: Escalation of care including admission/observation considered signed out to Dr. Coats pending workup Lab Data MDM Lab Attestation statement: I reviewed the patient's lab results. 11/06/24 22:46 11/06/24 22:46 Labs: Lab Results 11/06/24 11/06/24 11/06/24 Range/Units 16:00 22:46 22:50 WBC 9.5 (4.8-10.8) X10*3/uL RBC 5.25 (4.20-5.50) X10*6/uL Hgb 12.0 (12.0-16.0) g/dl Hct 38.1 (37.0-47.0) % MCV 72.6 L (80.0-98.0) fL MCH 22.9 L (27.0-33.0) pg MCHC 31.5 (31.0-35.0) g/dl RDW 14.6 (11.0-16.0) % Plt Count 276 (160-400) X10*3/uL MPV 9.1 L (9.4-12.3) fL Immature Gran % (Auto) 0.3 (0.0-0.4) % Neut % (Auto) 84.7 H (45-73) % Lymph % (Auto) 9.4 L (20-40) % [place] % (Auto) 4.8 (2-11) % Eos % (Auto) 0.5 (0-4) % Baso % (Auto) 0.3 (0-2) % Lymph # (Auto) 0.9 L (1.2-4.9) X10*3/uL [place] # (Auto) 0.5 (0.1-1.2) X10*3/uL Eos # (Auto) 0.1 (0.0-0.4) X10*3/uL Baso # (Auto) 0.0 (0.0-0.2) X10*3/uL Abs Immat Gran (auto) 0.03 (0.00-0.03) X10*3/uL Absolute Neuts (auto) 8.0 (2.0-8.3) x10*3/uL Absolute Nucleated RBC 0.000 (0.0-0.012) X10*3/uL Nucleated RBC % (auto) 0.0 (0.0-0.2) /100WBC VBG pH 7.45 H (7.32-7.43) VBG pCO2 45 mmHg VBG pO2 42 mmHg VBG HCO3 31 H (22-26) mmol/L VBG O2 Saturation 63.0 % VBG Base Excess 6.9 mmol/L Sodium 137 (135-145) mmol/L Potassium 3.7 (3.3-5.1) mmol/L Chloride 104 (96-108) mmol/L Carbon Dioxide 25 (22-29) mmol/L Anion Gap 12 (12-20) BUN 8 L (9-16) mg/dL Creatinine 0.73 (0.5-1.4) mg/dL Estim Creat Clear Calc 75.1 Estimated GFR > 60 Calcium 9.2 (8.4-10.2) mg/dL Total Bilirubin 0.4 (0.0-1.0) mg/dL AST 25 (5-31) U/L ALT 25 (0-31) U/L Alkaline Phosphatase 71 (39-117) U/L Total Protein 7.5 (6.5-8.0) g/dL Albumin 4.0 (3.5-5.0) g/dL Influenza Type A (PCR) NEGATIVE (Negative) Influenza Type B (PCR) NEGATIVE (Negative) RSV RNA Qual (PCR) POSITIVE A (Negative) SARS-CoV-2 RNA (RT-PCR) NEGATIVE (Negative) Independent Interpretation I performed an independent interpretation of an: Plain X-Ray (normal ) Radiology Impression Discussion of test interpretation with radiology: I have reviewed the radiologist's reading. External Record Review External record reviewed: Outpatient record Prescription Management I considered prescription management with: Antibiotic and Other Critical Care Time Critical Care Time Critical Care Time: Yes Total Critical Care Time: 45 Attestation: I have personally provided critical care time. Time includes review of lab data, radiology results, discussion with consultants, and monitoring for potential decompensation. Intervention performed as documented. Discharge Plan Discharge Clinical Impression: RSV bronchitis, Asthma Patient Disposition: Admitted As Inpatient Instructions: Respiratory Syncytial Virus (ED), Acute Bronchitis (ED) Additional Instructions: chest xray normal positive for RSV this is contagious wear a mask and protect others suspect 7 days of transmission would avoid work or wear a mask for 4 more days Prescriptions: No Action meclizine 25 mg tablet 25 mg PO TID PRN (Reason: dizziness) Qty: 10 0RF ondansetron 4 mg tablet,disintegrating 4 mg PO TID PRN (Reason: nausea and vomiting) Qty: 10 0RF prednisolone acetate [Pred Forte] 1 % drops,suspension 1 drp ophthalmic (eye) QID 5 Days Qty: 15 0RF naproxen 500 mg tablet 500 mg PO BID PRN (Reason: pain) 10 Days Qty: 20 0RF Stand Alone Forms: Work/School Release Print Language: Serbian
[2024-11-06 17:17] LABS: Influenza A PCR NEGATIVE (Negative); Influenza B PCR NEGATIVE (Negative); Resp Syncy Virus RNA Qual PCR POSITIVE (Negative); SARS COV2 PCR INHOUSE NEGATIVE (Negative)
[2024-11-06] MEDS: Benzonatate 100 MG CAPSULE PO (20:40)
[2024-11-06] MEDS: predniSONE 20 MG TABLET 40 MG PO (20:40)
[2024-11-06 20:41] VITALS: BP 169/88; PULSE 100; RESP 20; TEMP 36.6; O2SAT 95
[2024-11-06] MEDS: Albuterol Sulfate 2.5 MG, Albuterol Sulfate (0.083%) 2.5 MG 5 MG INHALE (21:01)
[2024-11-06 21:02] VITALS: PULSE 100; O2SAT 94
[2024-11-06] MEDS: guaiFENesin 200 MG/10 ML 10 ML LIQUID PO (21:38)
[2024-11-06 22:10] VITALS: BP 152/86; PULSE 99; RESP 14; TEMP 36.7; O2SAT 91
--- NOTE | 2024-11-06 22:29 | MHC.EDTECH ---
when pt was ambulating to the bathroom, O2 stat was reading between 90%-91%. RN made aware
[2024-11-06 22:51] LABS: MANUAL DIFF FLAG NO
[2024-11-06 22:52] LABS: Basophils Percent Auto 0.3 % (0-2); Eosinophils Absolute Auto 0.1 X10*3/uL (0.0-0.4); Eosinophils Percent Auto 0.5 % (0-4); Hematocrit 38.1 % (37.0-47.0); Imm Gran Abs Auto 0.03 X10*3/uL (0.00-0.03); Imm Gran Pct Auto 0.3 % (0.0-0.4); Lymphocytes Absolute Auto 0.9 X10*3/uL (1.2-4.9); Lymphocytes Percent Auto 9.4 % (20-40); Mean Corpuscular HGB Conc 31.5 g/dl (31.0-35.0); Mean Corpuscular Hemoglobin 22.9 pg (27.0-33.0); Mean Corpuscular Volume 72.6 fL (80.0-98.0); Mean Platelet Volume 9.1 fL (9.4-12.3); Monocytes Absolute Auto 0.5 X10*3/uL (0.1-1.2); Monocytes Percent Auto 4.8 % (2-11); Neutrophils Percent Auto 84.7 % (45-73); Platelet Count 276 X10*3/uL (160-400); Red Blood Count 5.25 X10*6/uL (4.20-5.50); Red Cell Distribution Width 14.6 % (11.0-16.0); White Blood Count 9.5 X10*3/uL (4.8-10.8)
[2024-11-06 22:53] VITALS: PULSE 99; RESP 14; O2SAT 95
[2024-11-06] MEDS: Albuterol/Iprat 2.5/0.5MG 3 ML AMPUL.NEB INHALE (22:53)
[2024-11-06 22:54] LABS: Venous Blood Gas Refer to POC result
[2024-11-06 22:56] LABS: VBG Base Excess 6.9 mmol/L; VBG HCO3 31 mmol/L (22-26); VBG pCO2 45 mmHg; VBG pH 7.45 (7.32-7.43); VBG pO2 42 mmHg
[2024-11-06 23:18] LABS: Alanine Aminotransferase 25 U/L (0-31); Alkaline Phosphatase 71 U/L (39-117); Anion Gap 12 (12-20); Aspartate Amino Transferase 25 U/L (5-31); Bilirubin Total 0.4 mg/dL (0.0-1.0); Blood Urea Nitrogen 8 mg/dL (9-16); Calcium 9.2 mg/dL (8.4-10.2); Carbon Dioxide 25 mmol/L (22-29); Chloride 104 mmol/L (96-108); Creatinine Clr Calc Pharmacy 75.1; Estimated Glomerular Filt Rate > 60; Potassium 3.7 mmol/L (3.3-5.1); Sodium 137 mmol/L (135-145); Total Protein 7.5 g/dL (6.5-8.0)
--- NOTE | 2024-11-06 23:28 | PC.NURSE ---
pt failed ambulatory O2 trial. dropped down to 80% with good wave form with ambulation , MD misty dahl
[2024-11-06 23:29] VITALS: O2SAT 91
[2024-11-06 23:58] LABS: Glucose Random 118 mg/dL (60-115)
[2024-11-07] VITALS (17 sets, daily range): BP systolic 113–170; BP diastolic 64–85; PULSE 77–98; RESP 16–30; TEMP 36.1–36.9; O2SAT 80–98
--- NOTE | 2024-11-07 00:06 | PM.IMHP ---
History of Present Illness Date of Service: 11/07/24 Chief Complaint: Dyspnea This is a 69-year-old female with pertinent history of asthma not on home oxygen, hypertension, uip-sfjkchb-ijawavvqu diabetes mellitus, mood disorder, mixed hyperlipidemia who presents to the emergency department for evaluation of dyspnea. Patient states she has been feeling unwell for the last 1 week. She has had cough with wheezing. Over the weekend, her symptoms progressed and she was unable to ambulate due to dyspnea as it is worse with exertion. Also she tried her rescue home inhaler but no relief with wheezing. Cough is nonproductive. Also has generalized body ache with easy fatigability and headache. No sick contacts. No documented fever, chills, chest pain, palpitations, abdominal pain, changes in urinary or bowel habits. In the emergency department, patient with wheezing despite multiple DuoNeb treatments. RSV positive. Dropped to 80% upon ambulation. Review of Systems Constitutional: Constitutional: Reports fatigue, Reports malaise and Reports weakness Cardiovascular: Cardiovascular: Reports dyspnea on exertion Respiratory: Respiratory: Reports cough, Reports dyspnea on exertion and Reports wheezing Gastrointestinal: Gastrointestinal: Reports no additional gastrointestinal complaints Genitourinary: Genitourinary: Reports no additional female genitourinary complaints Neurologic: Reports weakness Endocrine: Endocrine: Reports fatigue Allergic/Immunologic: Allergic/Immunologic: Reports wheezing [facility] Medical History Hyperlipidemia Hypertension Anxiety Diabetes Pertinent family history: No family history of early CAD Surgical History H/O: hysterectomy Social History Alcohol intake: never Patient Tobacco Use Status: Never used Tobacco Smoked in Last 30 Days: No Use of substances other than those prescribed or required for medical reasons: No Advance Directives: No Advance Directives Information Provided: No Do you have a plan to hurt others: No Plan Nutrition Risks: No Nutritional Risk Meds Allergies Allergy/AdvReac Type Severity Reaction Status Date / Time acetaminophen [From PERCOCET] Allergy Intermediate PALPITATION Verified 11/06/24 15:39 oxycodone [From PERCOCET] Allergy Intermediate PALPITATION Verified 11/06/24 15:39 penicillin G [PENICILLIN G] Allergy Intermediate RASH Verified 11/06/24 15:39 Sulfa (Sulfonamide Allergy Intermediate RASH Verified 11/06/24 15:39 Antibiotics) [SULFA (SULFONAMIDE ANTIBIOTICS)] Physical Exam Vital Signs and Narrative: Vital Signs: Last Vital Signs Temp 98.1 F 11/06/24 22:10 Pulse 99 11/06/24 22:53 Resp 14 11/06/24 22:53 BP 152/86 H 11/06/24 22:10 Pulse Ox 91 L 11/06/24 23:29 O2 Del Method Room Air 11/06/24 23:29 BMI result Body Mass Index 33.8 Middle-aged female lying in bed in mild distress Neck supple, no JVD Regular rate and rhythm, S1-S2 heard Bilateral wheezing present with tachypnea Abdomen soft nontender, no guarding, no rigidity Patient is awake, alert and oriented to self, place, time and person ; no focal motor deficit Psych: Normal mood No pedal edema Results Labs 11/06/24 22:46 11/06/24 22:46 Labs: Laboratory Results - last 24 hr 11/06/24 11/06/24 11/06/24 16:00 22:46 22:50 MCV 72.6 L MCH 22.9 L MCHC 31.5 RDW 14.6 Plt Count 276 MPV 9.1 L Immature Gran % (Auto) 0.3 Neut % (Auto) 84.7 H Lymph % (Auto) 9.4 L Clark % (Auto) 4.8 Eos % (Auto) 0.5 Baso % (Auto) 0.3 Lymph # (Auto) 0.9 L Clark # (Auto) 0.5 Eos # (Auto) 0.1 Baso # (Auto) 0.0 Abs Immat Gran (auto) 0.03 Absolute Neuts (auto) 8.0 Absolute Nucleated RBC 0.000 Nucleated RBC % (auto) 0.0 VBG pH 7.45 H VBG pCO2 45 VBG pO2 42 VBG HCO3 31 H VBG O2 Saturation 63.0 VBG Base Excess 6.9 Anion Gap 12 Estim Creat Clear Calc 75.1 Estimated GFR > 60 Random Glucose 118 H Calcium 9.2 Total Bilirubin 0.4 AST 25 ALT 25 Alkaline Phosphatase 71 Total Protein 7.5 Albumin 4.0 Influenza Type A (PCR) NEGATIVE Influenza Type B (PCR) NEGATIVE RSV RNA Qual (PCR) POSITIVE A SARS-CoV-2 RNA (RT-PCR) NEGATIVE Imaging Radiologist's Impressions: Impressions Chest X-Ray 11/06/24 15:40 IMPRESSION: Moderately limited left hemidiaphragm. It is unchanged to previous chest x-ray 09/18/2014. Electronically signed by: Mykel Jeronimo MD 11/06/2024 05:03 PM [facility] Assessment and Plan (1) Asthma: Status: Acute (2) RSV bronchitis: Status: Acute Plan This is a 69-year-old female with pertinent history of asthma not on home oxygen, hypertension, nnc-pziixip-ryvvzplni diabetes mellitus, mood disorder, mixed hyperlipidemia who presents to the emergency department for evaluation of dyspnea. #. Acute ambulatory hypoxia due to acute asthma exacerbation in the setting of RSV infection: Will admit patient with scheduled and p.r.n. DuoNebs. Initiating systemic steroids. Continue home inhaler. Monitor ambulatory O2 #. Hypertension: Continue home antihypertensives #. Unx-zamweyh-yqdczuqni diabetes mellitus: Initiating Accu-Cheks with sliding scale insulin in the setting of steroid use #. Mixed hyperlipidemia: On statin #. Mood disorder: Continue home mood stabilizers Med rec pending DVT prophylaxis: Lovenox Full code Admit as inpatient and will require two night minimum hospital stay for O2 saturation, systemic steroids (as above), which is not possible in a lesser acute setting. Quality Stroke Does the patient have a stroke diagnosis?: No VTE Prior VTE?: No VTE Risk Level:: Medical - moderate - high VTE Device Contraindication: Treatment Not Indicated VTE Drug Contraindication: N/A - Med Ordered
--- NOTE | 2024-11-07 00:52 | MHC.EDTECH ---
This pct assumed care of Patient at 2300 ,vitals taken ,Patient belongings list done ,Patient up to bedside commode ,void back to bed ,Call carrillo within Pt reach ,no apparent distress noted .
--- NOTE | 2024-11-07 02:05 | PC.NURSE ---
Pt dropped down to 83% room air when sleeping. Placed on 2L via NC.
[2024-11-07] MEDS: Albuterol/Iprat 2.5/0.5MG 3 ML AMPUL.NEB INHALE ×6 (02:50→23:57)
[2024-11-07 05:18] LABS: Basophils Percent Auto 0.1 % (0-2); Hematocrit 38.3 % (37.0-47.0); Imm Gran Abs Auto 0.02 X10*3/uL (0.00-0.03); Imm Gran Pct Auto 0.3 % (0.0-0.4); Lymphocytes Absolute Auto 0.4 X10*3/uL (1.2-4.9); Lymphocytes Percent Auto 5.8 % (20-40); MANUAL DIFF FLAG SCAN; Mean Corpuscular HGB Conc 31.3 g/dl (31.0-35.0); Mean Corpuscular Hemoglobin 23.1 pg (27.0-33.0); Mean Corpuscular Volume 73.8 fL (80.0-98.0); Mean Platelet Volume 9.8 fL (9.4-12.3); Monocytes Absolute Auto 0.1 X10*3/uL (0.1-1.2); Monocytes Percent Auto 1.2 % (2-11); Neutrophils Absolute Auto 6.8 x10*3/uL (2.0-8.3); Neutrophils Percent Auto 92.6 % (45-73); Platelet Count 290 X10*3/uL (160-400); Red Blood Count 5.19 X10*6/uL (4.20-5.50); Red Cell Distribution Width 14.5 % (11.0-16.0); SCAN SMEAR FLAG 1; White Blood Count 7.4 X10*3/uL (4.8-10.8)
[2024-11-07 05:29] LABS: Anion Gap 15 (12-20); Blood Urea Nitrogen 8 mg/dL (9-16); Calcium 9.3 mg/dL (8.4-10.2); Carbon Dioxide 21 mmol/L (22-29); Chloride 105 mmol/L (96-108); Creatinine Clr Calc Pharmacy 78.3; Estimated Glomerular Filt Rate > 60; Glucose Random 164 mg/dL (60-115); Potassium 3.9 mmol/L (3.3-5.1); Sodium 137 mmol/L (135-145)
[2024-11-07 05:42] LABS: SLIDE REVIEW VERIFIED
[2024-11-07 07:39] LABS: Glucose, Whole Blood 149 mg/dL (60-115)
[2024-11-07] MEDS: Benzonatate 100 MG CAPSULE PO ×2 (07:50→21:18)
--- NOTE | 2024-11-07 10:03 | PHA.MEDREC ---
Pharmacy Consult ? Medication Reconciliation Pharmacy has completed the medication reconciliation.Med rec complete, spoke to patient and compared with pharmacy claim history. Patient states she has not regularly been taking montelukast, but has not been discontinued.
[2024-11-07] MEDS: Enoxaparin Sodium 40 MG/0.4 ML SYRINGE SUBCUT (10:18)
[2024-11-07] MEDS: predniSONE 20 MG TABLET 40 MG PO (10:18)
[2024-11-07] MEDS: 0.9 % Sodium Chloride Flush 3 ML SYRINGE IVFLUSH ×3 (10:18→21:19)
[2024-11-07] MEDS: Loratadine 10 MG TABLET PO (11:24)
[2024-11-07] MEDS: FLUoxetine HCl 10 MG CAPSULE PO (11:25)
[2024-11-07] MEDS: lisinopriL 20 MG TABLET PO (11:25)
[2024-11-07] MEDS: Acetaminophen 325 MG TABLET 650 MG PO ×2 (11:26→21:18)
--- NOTE | 2024-11-07 12:13 | PM.EVENT ---
Event Note Date of Service: 11/07/24 Event Note: Pt seen and examined this nina mejia reviewed, some wheezing on exam 69-year-old female with pertinent history of asthma not on home oxygen, hypertension, skm-grwskre-lxvdtxuvp diabetes mellitus, mood disorder, mixed hyperlipidemia who presents to the emergency department for evaluation of dyspnea. Asthm exacerbation d/t RSV -O2 as needed and wean as nam -bronchodilators by Neb -IV steroid to be changed to PO prednsine -cough meds PRN Hypertension, resume home meds Wgw-efscail-ublgjbzqm diabetes mellitus -continue ssi, diabetic diet, and monitor poc escpecially while on steroid. hyperlipidemia: On statin Mood disorder: Continue home mood stabilizers DVT prophylaxis: Lovenox Full code anticipate dc tomorrow Time Spent With Patient Time: Total time managing care of this patient today ____ minutes.
[2024-11-07 13:26] LABS: Glucose, Whole Blood 112 mg/dL (60-115)
--- NOTE | 2024-11-07 13:34 | MHC.CM.PN ---
PT LIVES ALONE IS INDEPENDENT HAS OWN RIDE HOME WILL NOT NEED SERVICES WHEN DCD
[2024-11-07 17:16] LABS: Glucose, Whole Blood 151 mg/dL (60-115)
[2024-11-07 20:42] LABS: Glucose, Whole Blood 142 mg/dL (60-115)
[2024-11-07] MEDS: Montelukast Sodium 10 MG TABLET PO (21:18)
[2024-11-08] VITALS (8 sets, daily range): BP systolic 130–173; BP diastolic 69–83; PULSE 80–98; RESP 16–20; TEMP 36.1–36.6; O2SAT 91–97
[2024-11-08 07:15] LABS: Glucose, Whole Blood 87 mg/dL (60-115)
[2024-11-08] MEDS: 0.9 % Sodium Chloride Flush 3 ML SYRINGE IVFLUSH ×3 (08:16→21:27)
[2024-11-08] MEDS: lisinopriL 20 MG TABLET PO (08:17)
[2024-11-08] MEDS: Atorvastatin Calcium 80 MG TABLET PO (08:17)
[2024-11-08] MEDS: Loratadine 10 MG TABLET PO (08:17)
[2024-11-08] MEDS: predniSONE 20 MG TABLET 40 MG PO (08:18)
[2024-11-08] MEDS: Benzonatate 100 MG CAPSULE PO ×2 (08:18→17:24)
[2024-11-08] MEDS: Enoxaparin Sodium 40 MG/0.4 ML SYRINGE SUBCUT (08:18)
[2024-11-08] MEDS: FLUoxetine HCl 10 MG CAPSULE PO (08:18)
[2024-11-08] MEDS: Fluticasone/Vilanterol 200/25 BLST.W.DEV 1 PUFF INHALE (08:34)
[2024-11-08] MEDS: Albuterol/Iprat 2.5/0.5MG 3 ML AMPUL.NEB INHALE ×4 (08:35→19:37)
--- NOTE | 2024-11-08 09:28 | P.PNIM_ITS ---
Subjective Subjective Date of Service: 11/08/24 Interval History: follow up asthma exacerbation d/t from RSV she's still SOB, diffusely wheezing and persistent cough Physical Exam 2 Vital Signs: Vital Signs: Last Vital Signs Temp 97.2 F 11/08/24 07:55 Pulse 81 11/08/24 08:35 Resp 18 11/08/24 08:35 BP 145/80 H 11/08/24 07:55 Pulse Ox 95 11/08/24 07:55 O2 Del Method Nasal Cannula 11/08/24 07:55 O2 Flow Rate 2 11/08/24 07:55 BMI result Body Mass Index 33.8 General: AO X 3, no acute distress Resp: diffuse wheezing, mild effort, but able to talk in full sentences CVS: S1,S2,RRR GI: +BS, NT, no distention Skin: No rash Neuro: motor grossly intact Psych: appropriate affect Objective Data Active Medications Acetaminophen (Acetaminophen 325 Mg Tablet) 650 mg PO Q6H PRN PRN Reason: Pain, Mild 1-3,fever,headache Last Admin: 11/07/24 21:18 Dose: 650 mg Documented By: NEFTALI Albuterol Sulfate (Albuterol Sulfate 90 Mcg 8 Gm Inhaler) 2 puff INHALE Q6H PRN PRN Reason: wheezing Albuterol/Ipratropium (Albuterol/Iprat 2.5/0.5mg 3 Ml Ampul.Neb) 3 ml INHALE Q4H PRN PRN Reason: Shortness of Breath/Wheezing Last Admin: 11/07/24 23:57 Dose: 3 ml Documented By: KING Albuterol/Ipratropium (Albuterol/Iprat 2.5/0.5mg 3 Ml Ampul.Neb) 3 ml INHALE RQ4H WHILE AWAKE [facility] Last Admin: 11/08/24 08:35 Dose: 3 ml Documented By: SAMUEL Atorvastatin Calcium (Atorvastatin Calcium 80 Mg Tablet) 80 mg PO DAILY [facility] Last Admin: 11/08/24 08:17 Dose: 80 mg Documented By: SHREYAS Benzonatate (Benzonatate 100 Mg Capsule) 100 mg PO TID PRN PRN Reason: Cough Last Admin: 11/08/24 08:18 Dose: 100 mg Documented By: SHREYAS Calcium Carbonate (Calcium Carbonate 750 Mg Tab.Chew) 750 mg PO Q4H PRN PRN Reason: Heartburn Enoxaparin Sodium (Enoxaparin Sodium 40 Mg/0.4 Ml Syringe) 40 mg SUBCUT Q24H [facility] Last Admin: 11/08/24 08:18 Dose: 40 mg Documented By: SHREYAS Fluoxetine HCl (Fluoxetine Hcl 10 Mg Capsule) 10 mg PO DAILY [facility] Last Admin: 11/08/24 08:18 Dose: 10 mg Documented By: SHREYAS Fluticasone/Vilanterol (Fluticasone/Vilanterol 200/25 Blst.W.Dev) 1 puff INHALE RDAILY [facility] Last Admin: 11/08/24 08:34 Dose: 1 puff Documented By: SAMUEL Glucose (Glucose Gel 15 Gm Gel..Gram.) 15 gm PO Q15M PRN; Protocol PRN Reason: per Hypoglycemia Standing Ord. Guaifenesin (Guaifenesin 100 Mg/5 Ml 5 Ml Liquid) 5 ml PO Q4H PRN PRN Reason: Cough Dextrose (D10) 250 mls @ 750 mls/hr IV Q15M PRN; Protocol PRN Reason: per Hypoglycemia Standing Ord. Insulin Human Lispro (Insulin Lispro 100 Unit/Ml 3 Ml Vial) 0 unit SUBCUT QIDACHS [facility]; Protocol Last Admin: 11/08/24 07:22 Dose: Not Given Documented By: SHREYAS Non-Admin Reason: No Insulin Coverage Lisinopril (Lisinopril 20 Mg Tablet) 20 mg PO DAILY [facility]; Protocol Last Admin: 11/08/24 08:17 Dose: 20 mg Documented By: SHRYEAS Loratadine (Loratadine 10 Mg Tablet) 10 mg PO DAILY [facility] Last Admin: 11/08/24 08:17 Dose: 10 mg Documented By: SHREYAS Magnesium Hydroxide (Milk Of Magnesia 30 Ml Oral.Susp) 30 ml PO DAILY PRN PRN Reason: Constipation Melatonin (Melatonin 3 Mg Tablet) 6 mg PO BEDTIME PRN PRN Reason: Insomnia Montelukast Sodium (Montelukast Sodium 10 Mg Tablet) 10 mg PO BEDTIME [facility] Last Admin: 11/07/24 21:18 Dose: 10 mg Documented By: NEFTALI Ondansetron HCl (Ondansetron Hcl 4 Mg/2 Ml Vial) 4 mg IVPUSH Q8H PRN PRN Reason: Nausea and Vomiting Prednisone (Prednisone 20 Mg Tablet) 40 mg PO DAILY [facility] Last Admin: 11/08/24 08:18 Dose: 40 mg Documented By: SHREYAS Sodium Chloride (0.9 % Sodium Chloride Flush 3 Ml Syringe) 3 ml IVFLUSH QSHIFT [facility] Last Admin: 11/08/24 08:16 Dose: 3 ml Documented By: SHREYAS Labs 11/07/24 04:27 11/07/24 04:27 Labs: Laboratory Results - last 24 hr 11/07/24 11/07/24 11/07/24 13:21 17:12 20:35 POC Glucose 112 151 H 142 H 11/08/24 07:11 POC Glucose 87 Assessment and Plan (1) Hyperlipidemia: Status: Acute (2) RSV bronchitis: Status: Acute (3) Asthma: Status: Acute Plan 69-year-old female with pertinent history of asthma not on home oxygen, hypertension, oee-xvypxhv-pjuddddnl diabetes mellitus, mood disorder, mixed hyperlipidemia who presents to the emergency department for evaluation of dyspnea. Mild intermittent Asthma exacerbation d/t RSV -O2 as needed and wean as nam -bronchodilators by Neb -IV steroid to be changed to PO prednsine -cough meds PRN (robitussing + tessalon) Hypertension, continue Zyb-eepkkpb-bucvdjoaf diabetes mellitus -continue ssi, diabetic diet, and monitor poc escpecially while on steroid. hyperlipidemia: On statin Mood disorder: Continue home mood stabilizers DVT prophylaxis: Lovenox Full code anticipate dc tomorrow Quality Stroke Does the patient have a stroke diagnosis?: No VTE Prior VTE?: No VTE Risk Level:: Medical - moderate - high VTE Device Contraindication: Treatment Not Indicated VTE Drug Contraindication: N/A - Med Ordered
[2024-11-08] MEDS: guaiFENesin 100 MG/5 ML 5 ML LIQUID PO ×2 (09:49→21:25)
[2024-11-08] MEDS: methylPREDNISolone Sod Succ 40 MG/ML VIAL 20 MG IVPUSH (11:12)
[2024-11-08 11:15] LABS: Glucose, Whole Blood 135 mg/dL (60-115)
[2024-11-08] MEDS: Acetaminophen 325 MG TABLET 650 MG PO (12:16)
--- NOTE | 2024-11-08 15:29 | MHC.CM.PN ---
per rounds pt possible dc thurs dc plan will be for home
[2024-11-08] MEDS: Albuterol Sulfate 7.5 MG, Albuterol/Iprat 2.5/0.5MG 3 ML 3 ML INHALE (15:30)
--- NOTE | 2024-11-08 15:32 | PC.RT ---
Pt given scheduled 1500 neb tx. Post tx, pt had increased wheezing w/ audible wheezes and increased SOB. Pt states she feels worse and is having a hard time breathing. MD notified and OKAYed order for 10 mg neb. Pt 94% on 1L.
[2024-11-08 16:27] LABS: Glucose, Whole Blood 147 mg/dL (60-115)
[2024-11-08] MEDS: Azithromycin 500 MG in 0.9 % Sodium Chloride 250 ML 125 MG IV (16:45)
[2024-11-08 19:27] LABS: Glucose, Whole Blood 200 mg/dL (60-115)
[2024-11-08] MEDS: Montelukast Sodium 10 MG TABLET PO (19:32)
[2024-11-08] MEDS: methylPREDNISolone Sod Succ 40 MG/ML VIAL IVPUSH (19:32)
[2024-11-08] MEDS: Insulin Lispro 100 UNIT/ML 3 ML VIAL SUBCUT (21:25)
[2024-11-09] VITALS (7 sets, daily range): BP systolic 138–164; BP diastolic 65–88; PULSE 69–83; RESP 15–20; TEMP 36.1–36.8; O2SAT 93–97
[2024-11-09] MEDS: guaiFENesin 100 MG/5 ML 5 ML LIQUID PO ×5 (03:06→20:32)
[2024-11-09] MEDS: methylPREDNISolone Sod Succ 40 MG/ML VIAL IVPUSH ×3 (03:07→18:28)
[2024-11-09 07:37] LABS: Glucose, Whole Blood 118 mg/dL (60-115)
[2024-11-09] MEDS: Albuterol/Iprat 2.5/0.5MG 3 ML AMPUL.NEB INHALE ×4 (07:54→20:18)
[2024-11-09] MEDS: Fluticasone/Vilanterol 200/25 BLST.W.DEV 1 PUFF INHALE (07:54)
[2024-11-09] MEDS: lisinopriL 20 MG TABLET PO (08:09)
[2024-11-09] MEDS: Benzonatate 100 MG CAPSULE PO ×3 (08:10→20:33)
[2024-11-09] MEDS: Loratadine 10 MG TABLET PO (08:10)
[2024-11-09] MEDS: Atorvastatin Calcium 80 MG TABLET PO (08:10)
[2024-11-09] MEDS: FLUoxetine HCl 10 MG CAPSULE PO (08:10)
[2024-11-09] MEDS: Enoxaparin Sodium 40 MG/0.4 ML SYRINGE SUBCUT (08:10)
[2024-11-09] MEDS: 0.9 % Sodium Chloride Flush 3 ML SYRINGE IVFLUSH ×3 (08:16→20:33)
--- NOTE | 2024-11-09 09:32 | P.PNIM_ITS ---
Subjective Subjective Date of Service: 11/09/24 Interval History: follow up asthma exacerbation d/t from RSV She is still SOB, less wheezing, coughin but overall better than yesterday Physical Exam 2 Vital Signs: Vital Signs: Last Vital Signs Temp 98.3 F 11/09/24 07:43 Pulse 69 11/09/24 07:54 Resp 15 11/09/24 07:54 BP 164/88 H 11/09/24 07:43 Pulse Ox 96 11/09/24 07:43 O2 Del Method Nasal Cannula 11/09/24 07:43 O2 Flow Rate 2 11/09/24 07:43 BMI result Body Mass Index 33.8 Const: Other: General: AO X 3, no acute distress Resp: Scattered wheezing, rhonchi.. normal effor CVS: S1,S2,RRR GI: +BS, NT, no distention Skin: No rash Neuro: motor grossly intact Psych: appropriate affect Objective Data Active Medications Acetaminophen (Acetaminophen 325 Mg Tablet) 650 mg PO Q6H PRN PRN Reason: Pain, Mild 1-3,fever,headache Last Admin: 11/08/24 12:16 Dose: 650 mg Documented By: SHREYAS Albuterol Sulfate (Albuterol Sulfate 90 Mcg 8 Gm Inhaler) 2 puff INHALE Q6H PRN PRN Reason: wheezing Albuterol/Ipratropium (Albuterol/Iprat 2.5/0.5mg 3 Ml Ampul.Neb) 3 ml INHALE Q4H PRN PRN Reason: Shortness of Breath/Wheezing Last Admin: 11/07/24 23:57 Dose: 3 ml Documented By: KING Albuterol/Ipratropium (Albuterol/Iprat 2.5/0.5mg 3 Ml Ampul.Neb) 3 ml INHALE RQ4H WHILE AWAKE [facility] Last Admin: 11/09/24 07:54 Dose: 3 ml Documented By: JOHN PAUL Atorvastatin Calcium (Atorvastatin Calcium 80 Mg Tablet) 80 mg PO DAILY [facility] Last Admin: 11/09/24 08:10 Dose: 80 mg Documented By: GRAZIC Benzonatate (Benzonatate 100 Mg Capsule) 100 mg PO TID [facility] Last Admin: 11/09/24 08:19 Dose: Not Given Documented By: DAXA Non-Admin Reason: given as prn dose Calcium Carbonate (Calcium Carbonate 750 Mg Tab.Chew) 750 mg PO Q4H PRN PRN Reason: Heartburn Enoxaparin Sodium (Enoxaparin Sodium 40 Mg/0.4 Ml Syringe) 40 mg SUBCUT Q24H [facility] Last Admin: 11/09/24 08:10 Dose: 40 mg Documented By: DAXA Fluoxetine HCl (Fluoxetine Hcl 10 Mg Capsule) 10 mg PO DAILY [facility] Last Admin: 11/09/24 08:10 Dose: 10 mg Documented By: DAXA Fluticasone/Vilanterol (Fluticasone/Vilanterol 200/25 Blst.W.Dev) 1 puff INHALE RDAILY [facility] Last Admin: 11/09/24 07:54 Dose: 1 puff Documented By: JOHN PAUL Glucose (Glucose Gel 15 Gm Gel..Gram.) 15 gm PO Q15M PRN; Protocol PRN Reason: per Hypoglycemia Standing Ord. Guaifenesin (Guaifenesin 100 Mg/5 Ml 5 Ml Liquid) 5 ml PO Q4H PRN PRN Reason: Cough Last Admin: 11/09/24 08:15 Dose: 5 ml Documented By: DAXA Dextrose (D10) 250 mls @ 750 mls/hr IV Q15M PRN; Protocol PRN Reason: per Hypoglycemia Standing Ord. Azithromycin 500 mg/ Sodium (Chloride) 250 mls @ 125 mls/hr IV Q24H [facility] Last Infusion: 11/08/24 16:45 Dose: Infused Documented By: MARISOL Insulin Human Lispro (Insulin Lispro 100 Unit/Ml 3 Ml Vial) 0 unit SUBCUT QIDACHS [facility]; Protocol Last Admin: 11/09/24 07:48 Dose: Not Given Documented By: DAXA Non-Admin Reason: No Insulin Coverage Lisinopril (Lisinopril 20 Mg Tablet) 20 mg PO DAILY [facility]; Protocol Last Admin: 11/09/24 08:09 Dose: 20 mg Documented By: DAXA Loratadine (Loratadine 10 Mg Tablet) 10 mg PO DAILY [facility] Last Admin: 11/09/24 08:10 Dose: 10 mg Documented By: DAXA Magnesium Hydroxide (Milk Of Magnesia 30 Ml Oral.Susp) 30 ml PO DAILY PRN PRN Reason: Constipation Melatonin (Melatonin 3 Mg Tablet) 6 mg PO BEDTIME PRN PRN Reason: Insomnia Methylprednisolone Sodium Succinate (Methylprednisolone Sod Succ 40 Mg/Ml Vial) 40 mg IVPUSH Q8H [facility] Last Admin: 11/09/24 03:07 Dose: 40 mg Documented By: MARISOL Montelukast Sodium (Montelukast Sodium 10 Mg Tablet) 10 mg PO BEDTIME [facility] Last Admin: 11/08/24 19:32 Dose: 10 mg Documented By: MARISOL Ondansetron HCl (Ondansetron Hcl 4 Mg/2 Ml Vial) 4 mg IVPUSH Q8H PRN PRN Reason: Nausea and Vomiting Sodium Chloride (0.9 % Sodium Chloride Flush 3 Ml Syringe) 3 ml IVFLUSH QSHIFT [facility] Last Admin: 11/09/24 08:16 Dose: 3 ml Documented By: DAXA Labs 11/07/24 04:27 11/07/24 04:27 Labs: Laboratory Results - last 24 hr 11/08/24 11/08/24 11/08/24 11:12 16:21 19:13 POC Glucose 135 H 147 H 200 H 11/09/24 07:33 POC Glucose 118 H Assessment and Plan (1) Hyperlipidemia: Status: Acute (2) RSV bronchitis: Status: Acute (3) Asthma: Status: Acute Plan 69-year-old female with pertinent history of asthma not on home oxygen, hypertension, plj-heqtwak-bpnobnmbw diabetes mellitus, mood disorder, mixed hyperlipidemia who presents to the emergency department for evaluation of dyspnea. Mild intermittent Asthma with severe exacerbation d/t RSV, was having difficulty yesterday but better today -O2 as needed and wean as nam -bronchodilators by Neb -IV steroid -cough meds PRN (robitussing + tessalon) -Empiric azithromycin -pulmonology consult Hypertension, continue Oyo-ljqdysc-qmwnkycbu diabetes mellitus, elevated BS d/t steroid -continue ssi, diabetic diet, and monitor poc escpecially while on steroid. hyperlipidemia: On statin Mood disorder: Continue home mood stabilizers DVT prophylaxis: Lovenox Full code if better tomorrow, can be discharged Quality Stroke Does the patient have a stroke diagnosis?: No VTE Prior VTE?: No VTE Risk Level:: Medical - moderate - high VTE Device Contraindication: Treatment Not Indicated VTE Drug Contraindication: N/A - Med Ordered
[2024-11-09 11:33] LABS: Glucose, Whole Blood 153 mg/dL (60-115)
[2024-11-09] MEDS: Insulin Lispro 100 UNIT/ML 3 ML VIAL SUBCUT ×2 (11:51→20:32)
--- NOTE | 2024-11-09 12:40 | P.CONPL_ITS ---
History of Present Illness History of Present Illness Consult date: 11/09/24 Chief complaint: Dyspnea Narrative: 69-year-old lady, former minimal smoker, quit 30 years prior with underlying history of asthma, followed by [facility], admitted on 11/07/2024 with an asthma exacerbation and treated with systemic glucocorticoids and nebulized bronchodilators, now with slow improvement. Review of Systems 2 Constitutional: Constitutional: Denies daytime sleepiness, Denies excessive sweating, Denies fatigue, Denies fever(s), Denies lethargy, Denies malaise, Denies night sweats, Denies snoring and Denies weight loss Eyes: Eyes: Denies blurry vision and Denies itchy eyes ENT: Denies nasal congestion, Denies post nasal drip, Denies sinus pain, Denies sinus pressure and Denies other ( Thrush) Cardiovascular: Cardiovascular: Denies chest pain, Denies pedal edema, Reports dyspnea, Reports dyspnea on exertion, Denies orthopnea and Denies paroxysmal nocturnal dyspnea Respiratory: Respiratory: Denies cough, Denies hemoptysis, Denies excessive phlegm production, Reports dyspnea, Reports dyspnea on exertion, Denies snoring and Reports wheezing Gastrointestinal: Gastrointestinal: Denies abdominal pain and Denies heartburn Musculoskeletal: Musculoskeletal: Denies myalgias, Denies arthralgias and Denies joint swelling Integumentary/Breasts: Skin/Breast: Denies rash Neurologic: Denies memory loss and Denies seizure-like activity Psychiatric: Psychiatric: Denies abnormal sleep pattern, Denies anxiety and Denies memory loss Endocrine: Endocrine: Denies excessive sweating, Denies fatigue and Denies heat intolerance Hematologic/Lymphatic: Hematologic/Lymphatic: Denies easy bruising Allergic/Immunologic: Allergic/Immunologic: Denies itchy eyes, Denies seasonal rhinorrhea and Reports wheezing PMFSH Past Medical History Medical History Hyperlipidemia Hypertension Anxiety Diabetes Surgical History Surgical History H/O: hysterectomy Social History Social History Household Members: None Housing: House Do you presently have visiting nurse or other home services: No Alcohol intake: never Patient Tobacco Use Status: Never used Tobacco service: No Meds Allergies Allergy/AdvReac Type Severity Reaction Status Date / Time acetaminophen [From PERCOCET] Allergy Intermediate PALPITATION Verified 11/06/24 15:39 oxycodone [From PERCOCET] Allergy Intermediate PALPITATION Verified 11/06/24 15:39 penicillin G [PENICILLIN G] Allergy Intermediate RASH Verified 11/06/24 15:39 Sulfa (Sulfonamide Allergy Intermediate RASH Verified 11/06/24 15:39 Antibiotics) [SULFA (SULFONAMIDE ANTIBIOTICS)] Active Medications: Current Medications Acetaminophen (Acetaminophen 325 Mg Tablet) 650 mg PO Q6H PRN PRN Reason: Pain, Mild 1-3,fever,headache Last Admin: 11/08/24 12:16 Dose: 650 mg Albuterol Sulfate (Albuterol Sulfate 90 Mcg 8 Gm Inhaler) 2 puff INHALE Q6H PRN PRN Reason: wheezing Albuterol/Ipratropium (Albuterol/Iprat 2.5/0.5mg 3 Ml Ampul.Neb) 3 ml INHALE Q4H PRN PRN Reason: Shortness of Breath/Wheezing Last Admin: 11/07/24 23:57 Dose: 3 ml Albuterol/Ipratropium (Albuterol/Iprat 2.5/0.5mg 3 Ml Ampul.Neb) 3 ml INHALE RQ4H WHILE AWAKE [facility] Last Admin: 11/09/24 11:32 Dose: 3 ml Atorvastatin Calcium (Atorvastatin Calcium 80 Mg Tablet) 80 mg PO DAILY [facility] Last Admin: 11/09/24 08:10 Dose: 80 mg Benzonatate (Benzonatate 100 Mg Capsule) 100 mg PO TID [facility] Last Admin: 11/09/24 08:19 Dose: Not Given Calcium Carbonate (Calcium Carbonate 750 Mg Tab.Chew) 750 mg PO Q4H PRN PRN Reason: Heartburn Enoxaparin Sodium (Enoxaparin Sodium 40 Mg/0.4 Ml Syringe) 40 mg SUBCUT Q24H [facility] Last Admin: 11/09/24 08:10 Dose: 40 mg Fluoxetine HCl (Fluoxetine Hcl 10 Mg Capsule) 10 mg PO DAILY [facility] Last Admin: 11/09/24 08:10 Dose: 10 mg Fluticasone/Vilanterol (Fluticasone/Vilanterol 200/25 Blst.W.Dev) 1 puff INHALE RDAILY [facility] Last Admin: 11/09/24 07:54 Dose: 1 puff Glucose (Glucose Gel 15 Gm Gel..Gram.) 15 gm PO Q15M PRN; Protocol PRN Reason: per Hypoglycemia Standing Ord. Guaifenesin (Guaifenesin 100 Mg/5 Ml 5 Ml Liquid) 5 ml PO Q4H PRN PRN Reason: Cough Last Admin: 11/09/24 11:50 Dose: 5 ml Dextrose (D10) 250 mls @ 750 mls/hr IV Q15M PRN; Protocol PRN Reason: per Hypoglycemia Standing Ord. Azithromycin 500 mg/ Sodium (Chloride) 250 mls @ 125 mls/hr IV Q24H [facility] Last Infusion: 11/08/24 16:45 Dose: Infused Insulin Human Lispro (Insulin Lispro 100 Unit/Ml 3 Ml Vial) 0 unit SUBCUT QIDACHS [facility]; Protocol Last Admin: 11/09/24 11:51 Dose: 2 unit Lisinopril (Lisinopril 20 Mg Tablet) 20 mg PO DAILY [facility]; Protocol Last Admin: 11/09/24 08:09 Dose: 20 mg Loratadine (Loratadine 10 Mg Tablet) 10 mg PO DAILY [facility] Last Admin: 11/09/24 08:10 Dose: 10 mg Magnesium Hydroxide (Milk Of Magnesia 30 Ml Oral.Susp) 30 ml PO DAILY PRN PRN Reason: Constipation Melatonin (Melatonin 3 Mg Tablet) 6 mg PO BEDTIME PRN PRN Reason: Insomnia Methylprednisolone Sodium Succinate (Methylprednisolone Sod Succ 40 Mg/Ml Vial) 40 mg IVPUSH Q8H [facility] Last Admin: 11/09/24 10:50 Dose: 40 mg Montelukast Sodium (Montelukast Sodium 10 Mg Tablet) 10 mg PO BEDTIME [facility] Last Admin: 11/08/24 19:32 Dose: 10 mg Ondansetron HCl (Ondansetron Hcl 4 Mg/2 Ml Vial) 4 mg IVPUSH Q8H PRN PRN Reason: Nausea and Vomiting Sodium Chloride (0.9 % Sodium Chloride Flush 3 Ml Syringe) 3 ml IVFLUSH QSHIFT [facility] Last Admin: 11/09/24 08:16 Dose: 3 ml Home Medications ?Medication ?Instructions ?Recorded ?Confirmed ?Last Taken ?Type albuterol sulfate 90 mcg/actuation 2 puff inhalation Q6H PRN wheezing 11/07/24 11/07/24 Unknown History aerosol inhaler cetirizine 10 mg tablet 10 mg PO DAILY 11/07/24 11/07/24 Unknown History diclofenac sodium 1 % topical gel 1 g topical Q6H PRN joint pain 11/07/24 11/07/24 Unknown History fluoxetine 10 mg capsule 10 mg PO DAILY 11/07/24 11/07/24 11/06/24 History lisinopril 20 mg tablet 20 mg PO DAILY 11/07/24 11/07/24 11/06/24 History mometasone-formoterol HFA 200 1 puff inhalation BID 11/07/24 11/07/24 Unknown History mcg-5 mcg/actuation aerosol inhaler (Dulera) montelukast 10 mg tablet 10 mg PO BEDTIME 11/07/24 11/07/24 Unknown History rosuvastatin 40 mg tablet 40 mg PO DAILY 11/07/24 11/07/24 11/06/24 History Physical Exam 2 Vital Signs: Vital Signs: Last Vital Signs Temp 98.3 F 11/09/24 07:43 Pulse 78 11/09/24 11:33 Resp 17 11/09/24 11:33 BP 164/88 H 11/09/24 07:43 Pulse Ox 96 11/09/24 07:43 O2 Del Method Nasal Cannula 11/09/24 07:43 O2 Flow Rate 2 11/09/24 07:43 BMI result Body Mass Index 33.8 Const: General: no acute distress and alert Orientation/consciousness: O ther orientation findings ( oriented) HEENT: Head: Yes atraumatic Eyes: General: appearance normal, both eyes and all related structures S clerae: sclerae normal EOM: EOMs intact bilaterally Neck: Neck: Yes supple Lymphatic: no lymphadenopathy noted Resp: Effort & Inspection: normal respiratory effort and no use of accessory muscles Auscultation: wheezes (Expiratory bilateral) Cardio: Rate: regular rate Rhythm: regular rhythm Heart sounds: no gallops, no murmurs and no rubs Skin: General skin exam: other ( warm) Extrem: General: No clubbing, No cyanosis and No edema Results Laboratory Findings 11/07/24 04:27 11/07/24 04:27 Abnormal lab findings: Abnormal Labs 11/06/24 11/06/24 11/06/24 16:00 22:46 22:50 MCV 72.6 L MCH 22.9 L MPV 9.1 L Neut % (Auto) 84.7 H Lymph % (Auto) 9.4 L [place] % (Auto) Lymph # (Auto) 0.9 L VBG pH 7.45 H VBG HCO3 31 H Carbon Dioxide BUN 8 L POC Glucose Random Glucose 118 H RSV RNA Qual (PCR) POSITIVE A 11/07/24 11/07/24 11/07/24 04:27 07:27 17:12 MCV 73.8 L MCH 23.1 L MPV Neut % (Auto) 92.6 H Lymph % (Auto) 5.8 L [place] % (Auto) 1.2 L Lymph # (Auto) 0.4 L VBG pH VBG HCO3 Carbon Dioxide 21 L BUN 8 L POC Glucose 149 H 151 H Random Glucose 164 H RSV RNA Qual (PCR) 11/07/24 11/08/24 11/08/24 20:35 11:12 16:21 MCV MCH MPV Neut % (Auto) Lymph % (Auto) [place] % (Auto) Lymph # (Auto) VBG pH VBG HCO3 Carbon Dioxide BUN POC Glucose 142 H 135 H 147 H Random Glucose RSV RNA Qual (PCR) 11/08/24 11/09/24 11/09/24 19:13 07:33 11:29 MCV MCH MPV Neut % (Auto) Lymph % (Auto) [place] % (Auto) Lymph # (Auto) VBG pH VBG HCO3 Carbon Dioxide BUN POC Glucose 200 H 118 H 153 H Random Glucose RSV RNA Qual (PCR) Assessment and Plan (1) Asthma: Status: Acute Plan Impression: 69-year-old lady admitted with acute asthma exacerbation secondary to RSV, improving slowly. Recommendations: Agree with current therapeutic regimen of systemic glucocorticoids and nebulized bronchodilators. Consider decreasing systemic glucocorticoids to equivalent of prednisone 40 mg daily. Procedures Date of Service Date of Service: 11/09/24
[2024-11-09] MEDS: Azithromycin 500 MG in 0.9 % Sodium Chloride 250 ML 125 MG IV (15:54)
[2024-11-09 16:13] LABS: Glucose, Whole Blood 114 mg/dL (60-115)
[2024-11-09 20:17] LABS: Glucose, Whole Blood 160 mg/dL (60-115)
[2024-11-09] MEDS: Montelukast Sodium 10 MG TABLET PO (20:33)
[2024-11-10] VITALS (9 sets, daily range): BP systolic 126–160; BP diastolic 73–83; PULSE 74–91; RESP 17–20; TEMP 36.3–36.6; O2SAT 15–97
[2024-11-10] MEDS: guaiFENesin 100 MG/5 ML 5 ML LIQUID PO ×5 (00:21→21:23)
[2024-11-10] MEDS: methylPREDNISolone Sod Succ 40 MG/ML VIAL IVPUSH ×3 (03:00→21:23)
[2024-11-10] MEDS: Albuterol/Iprat 2.5/0.5MG 3 ML AMPUL.NEB INHALE ×5 (04:32→20:16)
[2024-11-10 07:19] LABS: Mean Corpuscular Hemoglobin 22.7 pg (27.0-33.0); Mean Corpuscular Volume 75.8 fL (80.0-98.0); Mean Platelet Volume 10.3 fL (9.4-12.3); Platelet Count 320 X10*3/uL (160-400); Red Blood Count 5.28 X10*6/uL (4.20-5.50); Red Cell Distribution Width 14.8 % (11.0-16.0); White Blood Count 6.7 X10*3/uL (4.8-10.8)
[2024-11-10 07:23] LABS: Glucose, Whole Blood 119 mg/dL (60-115)
[2024-11-10 07:30] LABS: Anion Gap 12 (12-20); Blood Urea Nitrogen 13 mg/dL (9-16); Calcium 9.3 mg/dL (8.4-10.2); Carbon Dioxide 30 mmol/L (22-29); Chloride 101 mmol/L (96-108); Creatinine Clr Calc Pharmacy 84.3; Estimated Glomerular Filt Rate > 60; Glucose Random 97 mg/dL (60-115); Potassium 4.2 mmol/L (3.3-5.1); Sodium 139 mmol/L (135-145)
[2024-11-10] MEDS: Fluticasone/Vilanterol 200/25 BLST.W.DEV 1 PUFF INHALE (07:34)
--- NOTE | 2024-11-10 08:11 | P.PNIM_ITS ---
Subjective Subjective Date of Service: 11/10/24 Interval History: follow up asthma exacerbation d/t from RSV She feels bad this morning with increase wheezing and coughing and feeling sob Physical Exam 2 Vital Signs: Vital Signs: Last Vital Signs Temp 97.4 F 11/10/24 07:40 Pulse 87 11/10/24 07:40 Resp 18 11/10/24 07:40 BP 160/78 H 11/10/24 07:40 Pulse Ox 95 11/10/24 07:40 O2 Del Method Nasal Cannula 11/10/24 07:40 O2 Flow Rate 2 11/10/24 07:40 BMI result Body Mass Index 33.8 Const: Other: General: AO X 3, no acute distress Resp: Scattered wheezing, rhonchi.. normal effor CVS: S1,S2,RRR GI: +BS, NT, no distention Skin: No rash Neuro: motor grossly intact Psych: appropriate affect Objective Data Active Medications Acetaminophen (Acetaminophen 325 Mg Tablet) 650 mg PO Q6H PRN PRN Reason: Pain, Mild 1-3,fever,headache Last Admin: 11/08/24 12:16 Dose: 650 mg Documented By: SHREYAS Albuterol Sulfate (Albuterol Sulfate 90 Mcg 8 Gm Inhaler) 2 puff INHALE Q6H PRN PRN Reason: wheezing Albuterol/Ipratropium (Albuterol/Iprat 2.5/0.5mg 3 Ml Ampul.Neb) 3 ml INHALE Q4H PRN PRN Reason: Shortness of Breath/Wheezing Last Admin: 11/10/24 04:32 Dose: 3 ml Documented By: DELIA Albuterol/Ipratropium (Albuterol/Iprat 2.5/0.5mg 3 Ml Ampul.Neb) 3 ml INHALE RQ4H WHILE AWAKE [facility] Last Admin: 11/10/24 07:36 Dose: 3 ml Documented By: LORI Atorvastatin Calcium (Atorvastatin Calcium 80 Mg Tablet) 80 mg PO DAILY [facility] Last Admin: 11/09/24 08:10 Dose: 80 mg Documented By: GRAZIC Benzonatate (Benzonatate 100 Mg Capsule) 100 mg PO TID [facility] Last Admin: 11/09/24 20:33 Dose: 100 mg Documented By: MARISOL Calcium Carbonate (Calcium Carbonate 750 Mg Tab.Chew) 750 mg PO Q4H PRN PRN Reason: Heartburn Enoxaparin Sodium (Enoxaparin Sodium 40 Mg/0.4 Ml Syringe) 40 mg SUBCUT Q24H [facility] Last Admin: 11/09/24 08:10 Dose: 40 mg Documented By: DAXA Fluoxetine HCl (Fluoxetine Hcl 10 Mg Capsule) 10 mg PO DAILY [facility] Last Admin: 11/09/24 08:10 Dose: 10 mg Documented By: DAXA Fluticasone/Vilanterol (Fluticasone/Vilanterol 200/25 Blst.W.Dev) 1 puff INHALE RDAILY [facility] Last Admin: 11/10/24 07:34 Dose: 1 puff Documented By: LORI Glucose (Glucose Gel 15 Gm Gel..Gram.) 15 gm PO Q15M PRN; Protocol PRN Reason: per Hypoglycemia Standing Ord. Guaifenesin (Guaifenesin 100 Mg/5 Ml 5 Ml Liquid) 5 ml PO Q4H PRN PRN Reason: Cough Last Admin: 11/10/24 04:27 Dose: 5 ml Documented By: KYLE Dextrose (D10) 250 mls @ 750 mls/hr IV Q15M PRN; Protocol PRN Reason: per Hypoglycemia Standing Ord. Azithromycin 500 mg/ Sodium (Chloride) 250 mls @ 125 mls/hr IV Q24H [facility] Last Infusion: 11/09/24 18:01 Dose: Infused Documented By: DAXA Insulin Human Lispro (Insulin Lispro 100 Unit/Ml 3 Ml Vial) 0 unit SUBCUT QIDACHS [facility]; Protocol Last Admin: 11/10/24 07:58 Dose: Not Given Documented By: SHREYAS Non-Admin Reason: No Insulin Coverage Lisinopril (Lisinopril 20 Mg Tablet) 20 mg PO DAILY [facility]; Protocol Last Admin: 11/09/24 08:09 Dose: 20 mg Documented By: DAXA Loratadine (Loratadine 10 Mg Tablet) 10 mg PO DAILY [facility] Last Admin: 11/09/24 08:10 Dose: 10 mg Documented By: DAXA Magnesium Hydroxide (Milk Of Magnesia 30 Ml Oral.Susp) 30 ml PO DAILY PRN PRN Reason: Constipation Melatonin (Melatonin 3 Mg Tablet) 6 mg PO BEDTIME PRN PRN Reason: Insomnia Methylprednisolone Sodium Succinate (Methylprednisolone Sod Succ 40 Mg/Ml Vial) 40 mg IVPUSH Q8H [facility] Last Admin: 11/10/24 03:00 Dose: 40 mg Documented By: MARISOL Montelukast Sodium (Montelukast Sodium 10 Mg Tablet) 10 mg PO BEDTIME [facility] Last Admin: 11/09/24 20:33 Dose: 10 mg Documented By: MARISOL Ondansetron HCl (Ondansetron Hcl 4 Mg/2 Ml Vial) 4 mg IVPUSH Q8H PRN PRN Reason: Nausea and Vomiting Sodium Chloride (0.9 % Sodium Chloride Flush 3 Ml Syringe) 3 ml IVFLUSH QSHIFT [facility] Last Admin: 11/09/24 20:33 Dose: 3 ml Documented By: MARISOL Labs 11/10/24 05:15 11/10/24 05:15 Labs: Laboratory Results - last 24 hr 11/09/24 11/09/24 11/09/24 11:29 16:02 20:05 MCV MCH MCHC RDW Plt Count MPV Absolute Nucleated RBC Nucleated RBC % (auto) Anion Gap Estim Creat Clear Calc Estimated GFR POC Glucose 153 H 114 160 H Random Glucose Calcium 11/10/24 11/10/24 05:15 07:17 MCV 75.8 L MCH 22.7 L MCHC 30.0 L RDW 14.8 Plt Count 320 MPV 10.3 Absolute Nucleated RBC 0.000 Nucleated RBC % (auto) 0.0 Anion Gap 12 Estim Creat Clear Calc 84.3 Estimated GFR > 60 POC Glucose 119 H Random Glucose 97 Calcium 9.3 Assessment and Plan (1) Hyperlipidemia: Status: Acute (2) RSV bronchitis: Status: Acute (3) Asthma: Status: Acute Plan 69-year-old female with pertinent history of asthma not on home oxygen, hypertension, [id number] diabetes mellitus, mood disorder, mixed hyperlipidemia who presents to the emergency department for evaluation of dyspnea. Asthma with severe exacerbation d/t RSV, still with sob, cough and wheezing -O2 as needed and wean as nam -bronchodilators by Neb -IV steroid -cough meds PRN (robitussing + tessalon) -Empiric azithromycin x 5 days -pulmonology input noted Hypertension, BP on higher side -continue lisinopril 20 -add Norvasc 5 [id number] diabetes mellitus, elevated BS d/t steroid -continue ssi, diabetic diet, and monitor poc escpecially while on steroid. hyperlipidemia: On statin Mood disorder: Continue home mood stabilizers DVT prophylaxis: Lovenox Full code Quality Stroke Does the patient have a stroke diagnosis?: No VTE Prior VTE?: No VTE Risk Level:: Medical - moderate - high VTE Device Contraindication: Treatment Not Indicated VTE Drug Contraindication: N/A - Med Ordered
[2024-11-10] MEDS: 0.9 % Sodium Chloride Flush 3 ML SYRINGE IVFLUSH ×3 (09:26→23:52)
[2024-11-10] MEDS: Enoxaparin Sodium 40 MG/0.4 ML SYRINGE SUBCUT (09:26)
[2024-11-10] MEDS: Benzonatate 100 MG CAPSULE PO ×3 (09:27→21:23)
[2024-11-10] MEDS: amLODIPine Besylate 5 MG TABLET PO (09:27)
[2024-11-10] MEDS: lisinopriL 20 MG TABLET PO (09:27)
[2024-11-10] MEDS: FLUoxetine HCl 10 MG CAPSULE PO (09:27)
[2024-11-10] MEDS: Loratadine 10 MG TABLET PO (09:28)
[2024-11-10] MEDS: Atorvastatin Calcium 80 MG TABLET PO (09:28)
[2024-11-10 11:28] LABS: Glucose, Whole Blood 170 mg/dL (60-115)
[2024-11-10] MEDS: Insulin Lispro 100 UNIT/ML 3 ML VIAL SUBCUT ×2 (12:08→21:22)
--- NOTE | 2024-11-10 15:14 | MHC.CM.PN ---
per rounds pt expected to dc sat dc plan remins for home
[2024-11-10 16:01] LABS: Glucose, Whole Blood 138 mg/dL (60-115)
[2024-11-10] MEDS: Azithromycin 500 MG in 0.9 % Sodium Chloride 250 ML 125 MG IV (16:11)
[2024-11-10 19:57] LABS: Glucose, Whole Blood 151 mg/dL (60-115)
[2024-11-10] MEDS: Montelukast Sodium 10 MG TABLET PO (21:23)
[2024-11-11] VITALS (8 sets, daily range): BP systolic 134–173; BP diastolic 65–87; PULSE 68–96; RESP 17–20; TEMP 36–36.6; O2SAT 90–98
[2024-11-11] MEDS: guaiFENesin 100 MG/5 ML 5 ML LIQUID PO ×3 (01:51→19:22)
[2024-11-11] MEDS: Fluticasone/Vilanterol 200/25 BLST.W.DEV 1 PUFF INHALE (07:44)
[2024-11-11 07:46] LABS: Glucose, Whole Blood 98 mg/dL (60-115)
[2024-11-11] MEDS: Albuterol/Iprat 2.5/0.5MG 3 ML AMPUL.NEB INHALE ×4 (07:46→19:10)
[2024-11-11] MEDS: Enoxaparin Sodium 40 MG/0.4 ML SYRINGE SUBCUT (08:37)
[2024-11-11] MEDS: 0.9 % Sodium Chloride Flush 3 ML SYRINGE IVFLUSH ×2 (08:37→15:47)
[2024-11-11] MEDS: amLODIPine Besylate 5 MG TABLET PO (08:38)
[2024-11-11] MEDS: Atorvastatin Calcium 80 MG TABLET PO (08:38)
[2024-11-11] MEDS: lisinopriL 20 MG TABLET PO (08:38)
[2024-11-11] MEDS: Loratadine 10 MG TABLET PO (08:38)
[2024-11-11] MEDS: methylPREDNISolone Sod Succ 40 MG/ML VIAL IVPUSH (08:38)
[2024-11-11] MEDS: Benzonatate 100 MG CAPSULE PO ×3 (08:38→19:23)
[2024-11-11] MEDS: FLUoxetine HCl 10 MG CAPSULE PO (08:38)
--- NOTE | 2024-11-11 10:38 | PC.NURSE ---
Pt having coughing fit, Primary rn notified and RT.
[2024-11-11 11:18] LABS: Glucose, Whole Blood 143 mg/dL (60-115)
--- NOTE | 2024-11-11 15:03 | P.PNIM_ITS ---
Subjective Subjective Date of Service: 11/12/24 Interval History: Doing much better this morning, but had a coughing fit this morning, Physical Exam 2 Vital Signs: Vital Signs: Last Vital Signs Temp 97.8 F 11/11/24 08:00 Pulse 68 11/11/24 11:31 Resp 18 11/11/24 11:31 BP 173/87 H 11/11/24 08:00 Pulse Ox 90 L 11/11/24 08:45 O2 Del Method Room Air 11/11/24 08:45 O2 Flow Rate 4 11/11/24 08:00 BMI result Body Mass Index 33.8 Const: Other: General: AO X 3, no acute distress Resp: no wheezes, normal effort to breath CVS: S1,S2,RRR GI: +BS, NT, no distention Skin: No rash Neuro: motor grossly intact Psych: appropriate affect Objective Data Active Medications Acetaminophen (Acetaminophen 325 Mg Tablet) 650 mg PO Q6H PRN PRN Reason: Pain, Mild 1-3,fever,headache Last Admin: 11/08/24 12:16 Dose: 650 mg Documented By: SHREYAS Albuterol Sulfate (Albuterol Sulfate 90 Mcg 8 Gm Inhaler) 2 puff INHALE Q6H PRN PRN Reason: wheezing Albuterol/Ipratropium (Albuterol/Iprat 2.5/0.5mg 3 Ml Ampul.Neb) 3 ml INHALE Q4H PRN PRN Reason: Shortness of Breath/Wheezing Last Admin: 11/10/24 04:32 Dose: 3 ml Documented By: DELIA Albuterol/Ipratropium (Albuterol/Iprat 2.5/0.5mg 3 Ml Ampul.Neb) 3 ml INHALE RQ4H WHILE AWAKE [facility] Last Admin: 11/11/24 11:31 Dose: 3 ml Documented By: LORI Amlodipine Besylate (Amlodipine Besylate 5 Mg Tablet) 5 mg PO DAILY [facility]; Protocol Last Admin: 11/11/24 08:38 Dose: 5 mg Documented By: GEGE Atorvastatin Calcium (Atorvastatin Calcium 80 Mg Tablet) 80 mg PO DAILY [facility] Last Admin: 11/11/24 08:38 Dose: 80 mg Documented By: GEGE Benzonatate (Benzonatate 100 Mg Capsule) 100 mg PO TID [facility] Last Admin: 11/11/24 08:38 Dose: 100 mg Documented By: GEGE Calcium Carbonate (Calcium Carbonate 750 Mg Tab.Chew) 750 mg PO Q4H PRN PRN Reason: Heartburn Enoxaparin Sodium (Enoxaparin Sodium 40 Mg/0.4 Ml Syringe) 40 mg SUBCUT Q24H [facility] Last Admin: 11/11/24 08:37 Dose: 40 mg Documented By: GEGE Fluoxetine HCl (Fluoxetine Hcl 10 Mg Capsule) 10 mg PO DAILY [facility] Last Admin: 11/11/24 08:38 Dose: 10 mg Documented By: GEGE Fluticasone/Vilanterol (Fluticasone/Vilanterol 200/25 Blst.W.Dev) 1 puff INHALE RDAILY [facility] Last Admin: 11/11/24 07:44 Dose: 1 puff Documented By: LORI Glucose (Glucose Gel 15 Gm Gel..Gram.) 15 gm PO Q15M PRN; Protocol PRN Reason: per Hypoglycemia Standing Ord. Guaifenesin (Guaifenesin 100 Mg/5 Ml 5 Ml Liquid) 5 ml PO Q4H PRN PRN Reason: Cough Last Admin: 11/11/24 10:10 Dose: 5 ml Documented By: GEGE Dextrose (D10) 250 mls @ 750 mls/hr IV Q15M PRN; Protocol PRN Reason: per Hypoglycemia Standing Ord. Azithromycin 500 mg/ Sodium (Chloride) 250 mls @ 125 mls/hr IV Q24H [facility] Last Infusion: 11/10/24 19:34 Dose: Infused Documented By: SHREYAS Insulin Human Lispro (Insulin Lispro 100 Unit/Ml 3 Ml Vial) 0 unit SUBCUT QIDACHS [facility]; Protocol Last Admin: 11/11/24 13:00 Dose: Not Given Documented By: GEGE Non-Admin Reason: No Insulin Coverage Lisinopril (Lisinopril 20 Mg Tablet) 20 mg PO DAILY [facility]; Protocol Last Admin: 11/11/24 08:38 Dose: 20 mg Documented By: GEGE Loratadine (Loratadine 10 Mg Tablet) 10 mg PO DAILY [facility] Last Admin: 11/11/24 08:38 Dose: 10 mg Documented By: GEGE Magnesium Hydroxide (Milk Of Magnesia 30 Ml Oral.Susp) 30 ml PO DAILY PRN PRN Reason: Constipation Melatonin (Melatonin 3 Mg Tablet) 6 mg PO BEDTIME PRN PRN Reason: Insomnia Methylprednisolone Sodium Succinate (Methylprednisolone Sod Succ 40 Mg/Ml Vial) 40 mg IVPUSH DAILY [facility] Last Admin: 11/11/24 08:38 Dose: 40 mg Documented By: GEGE Montelukast Sodium (Montelukast Sodium 10 Mg Tablet) 10 mg PO BEDTIME [facility] Last Admin: 11/10/24 21:23 Dose: 10 mg Documented By: LAYO Ondansetron HCl (Ondansetron Hcl 4 Mg/2 Ml Vial) 4 mg IVPUSH Q8H PRN PRN Reason: Nausea and Vomiting Sodium Chloride (0.9 % Sodium Chloride Flush 3 Ml Syringe) 3 ml IVFLUSH QSHIFT [facility] Last Admin: 11/11/24 08:37 Dose: 3 ml Documented By: GEGE Labs 11/10/24 05:15 11/10/24 05:15 Labs: Laboratory Results - last 24 hr 11/10/24 11/10/24 11/11/24 15:57 19:22 07:30 POC Glucose 138 H 151 H 98 11/11/24 11:14 POC Glucose 143 H Assessment and Plan (1) Hyperlipidemia: Status: Acute (2) RSV bronchitis: Status: Acute (3) Asthma: Status: Acute Plan 69-year-old female with pertinent history of asthma not on home oxygen, hypertension, [id number] diabetes mellitus, mood disorder, mixed hyperlipidemia who presents to the emergency department for evaluation of dyspnea. Asthma with severe exacerbation d/t RSV, still with sob, cough and wheezing -O2 as needed and wean as nam -bronchodilators by Neb -IV steroid -cough meds PRN (robitussing + tessalon) -Empiric azithromycin x 5 days -pulmonology input noted Hypertension, BP on higher side -continue lisinopril 20 -add Norvasc 5 [id number] diabetes mellitus, elevated BS d/t steroid -continue ssi, diabetic diet, and monitor poc escpecially while on steroid. hyperlipidemia: On statin Mood disorder: Continue home mood stabilizers DVT prophylaxis: Lovenox Full code Quality Stroke Does the patient have a stroke diagnosis?: No VTE Prior VTE?: No VTE Risk Level:: Medical - moderate - high VTE Device Contraindication: Treatment Not Indicated VTE Drug Contraindication: N/A - Med Ordered
[2024-11-11] MEDS: Azithromycin 250 MG TABLET PO (15:47)
[2024-11-11 16:42] LABS: Glucose, Whole Blood 130 mg/dL (60-115)
[2024-11-11] MEDS: Montelukast Sodium 10 MG TABLET PO (19:23)
[2024-11-11 21:30] LABS: Glucose, Whole Blood 114 mg/dL (60-115)
[2024-11-12] VITALS (7 sets, daily range): BP systolic 124–154; BP diastolic 75–82; PULSE 67–102; RESP 16–20; TEMP 36.3–36.4; O2SAT 90–96
[2024-11-12] MEDS: Albuterol/Iprat 2.5/0.5MG 3 ML AMPUL.NEB INHALE ×4 (07:34→19:43)
[2024-11-12] MEDS: Fluticasone/Vilanterol 200/25 BLST.W.DEV 1 PUFF INHALE (07:34)
[2024-11-12 07:39] LABS: Glucose, Whole Blood 80 mg/dL (60-115)
--- NOTE | 2024-11-12 08:45 | P.PNIM_ITS ---
Subjective Subjective Date of Service: 11/12/24 Interval History: Shortness of breath is better, intermittent coughing fits Physical Exam 2 Vital Signs: Vital Signs: Last Vital Signs Temp 96.8 F 11/11/24 23:37 Pulse 88 11/12/24 07:34 Resp 16 11/12/24 07:34 BP 134/65 11/11/24 23:37 Pulse Ox 96 11/11/24 23:37 O2 Del Method Nasal Cannula 11/11/24 23:37 O2 Flow Rate 2 11/11/24 23:37 BMI result Body Mass Index 33.8 Const: Other: General: AO X 3, no acute distress Resp: no wheezes, normal effort to breath CVS: S1,S2,RRR GI: +BS, NT, no distention Skin: No rash Neuro: motor grossly intact Psych: appropriate affect Objective Data Active Medications Acetaminophen (Acetaminophen 325 Mg Tablet) 650 mg PO Q6H PRN PRN Reason: Pain, Mild 1-3,fever,headache Last Admin: 11/08/24 12:16 Dose: 650 mg Documented By: SHREYAS Albuterol Sulfate (Albuterol Sulfate 90 Mcg 8 Gm Inhaler) 2 puff INHALE Q6H PRN PRN Reason: wheezing Albuterol/Ipratropium (Albuterol/Iprat 2.5/0.5mg 3 Ml Ampul.Neb) 3 ml INHALE Q4H PRN PRN Reason: Shortness of Breath/Wheezing Last Admin: 11/10/24 04:32 Dose: 3 ml Documented By: DELIA Albuterol/Ipratropium (Albuterol/Iprat 2.5/0.5mg 3 Ml Ampul.Neb) 3 ml INHALE RQ4H WHILE AWAKE [facility] Last Admin: 11/12/24 07:34 Dose: 3 ml Documented By: DORIS Amlodipine Besylate (Amlodipine Besylate 5 Mg Tablet) 5 mg PO DAILY [facility]; Protocol Last Admin: 11/11/24 08:38 Dose: 5 mg Documented By: GEGE Atorvastatin Calcium (Atorvastatin Calcium 80 Mg Tablet) 80 mg PO DAILY [facility] Last Admin: 11/11/24 08:38 Dose: 80 mg Documented By: GEGE Azithromycin (Azithromycin 250 Mg Tablet) 250 mg PO Q24H [facility] Last Admin: 11/11/24 15:47 Dose: 250 mg Documented By: NEISHA Benzonatate (Benzonatate 100 Mg Capsule) 100 mg PO TID [facility] Last Admin: 11/11/24 19:23 Dose: 100 mg Documented By: SOUMYA Calcium Carbonate (Calcium Carbonate 750 Mg Tab.Chew) 750 mg PO Q4H PRN PRN Reason: Heartburn Enoxaparin Sodium (Enoxaparin Sodium 40 Mg/0.4 Ml Syringe) 40 mg SUBCUT Q24H [facility] Last Admin: 11/11/24 08:37 Dose: 40 mg Documented By: GEGE Fluoxetine HCl (Fluoxetine Hcl 10 Mg Capsule) 10 mg PO DAILY [facility] Last Admin: 11/11/24 08:38 Dose: 10 mg Documented By: GEGE Fluticasone/Vilanterol (Fluticasone/Vilanterol 200/25 Blst.W.Dev) 1 puff INHALE RDAILY [facility] Last Admin: 11/12/24 07:34 Dose: 1 puff Documented By: DORIS Glucose (Glucose Gel 15 Gm Gel..Gram.) 15 gm PO Q15M PRN; Protocol PRN Reason: per Hypoglycemia Standing Ord. Guaifenesin/Codeine Phosphate (Guaifen/Codeine Sf 200/20/10ml 10 Ml Liquid) 5 ml PO Q6H PRN PRN Reason: Cough Dextrose (D10) 250 mls @ 750 mls/hr IV Q15M PRN; Protocol PRN Reason: per Hypoglycemia Standing Ord. Insulin Human Lispro (Insulin Lispro 100 Unit/Ml 3 Ml Vial) 0 unit SUBCUT QIDACHS [facility]; Protocol Last Admin: 11/12/24 01:45 Dose: Not Given Documented By: SOUMYA Non-Admin Reason: assessed, no action needed Lisinopril (Lisinopril 20 Mg Tablet) 20 mg PO DAILY [facility]; Protocol Last Admin: 11/11/24 08:38 Dose: 20 mg Documented By: GEGE Loratadine (Loratadine 10 Mg Tablet) 10 mg PO DAILY [facility] Last Admin: 11/11/24 08:38 Dose: 10 mg Documented By: GEGE Magnesium Hydroxide (Milk Of Magnesia 30 Ml Oral.Susp) 30 ml PO DAILY PRN PRN Reason: Constipation Melatonin (Melatonin 3 Mg Tablet) 6 mg PO BEDTIME PRN PRN Reason: Insomnia Montelukast Sodium (Montelukast Sodium 10 Mg Tablet) 10 mg PO BEDTIME [facility] Last Admin: 11/11/24 19:23 Dose: 10 mg Documented By: SOUMYA Ondansetron HCl (Ondansetron Hcl 4 Mg/2 Ml Vial) 4 mg IVPUSH Q8H PRN PRN Reason: Nausea and Vomiting Prednisone (Prednisone 20 Mg Tablet) 40 mg PO DAILY [facility] Sodium Chloride (0.9 % Sodium Chloride Flush 3 Ml Syringe) 3 ml IVFLUSH QSHIFT [facility] Last Admin: 11/12/24 01:46 Dose: Not Given Documented By: SOUMYA Non-Admin Reason: Patient Asleep Labs 11/10/24 05:15 11/10/24 05:15 Labs: Laboratory Results - last 24 hr 11/11/24 11/11/24 11/11/24 11:14 16:16 21:25 POC Glucose 143 H 130 H 114 11/12/24 07:28 POC Glucose 80 Assessment and Plan (1) Hyperlipidemia: Status: Acute (2) RSV bronchitis: Status: Acute (3) Asthma: Status: Acute Plan 69-year-old female with pertinent history of asthma not on home oxygen, hypertension, rhj-pwjwwgr-cyeariqpb diabetes mellitus, mood disorder, mixed hyperlipidemia who presents to the emergency department for evaluation of dyspnea. Asthma with severe exacerbation d/t RSV, still with sob, cough and wheezing -O2 as needed and wean as nam -bronchodilators by Neb -IV steroid changed to oral prednisone -cough meds PRN (robitussing with codeine + tessalon) -Empiric azithromycin x 5 days -pulmonology input noted Hypertension, BP on higher side -continue lisinopril 20 -added Norvasc 5 Ivt-kasejel-dqkhtdiny diabetes mellitus, elevated BS d/t steroid -continue ssi, diabetic diet, and monitor poc escpecially while on steroid. hyperlipidemia: On statin Mood disorder: Continue home mood stabilizers DVT prophylaxis: Lovenox Full code Quality Stroke Does the patient have a stroke diagnosis?: No VTE Prior VTE?: No VTE Risk Level:: Medical - moderate - high VTE Device Contraindication: Treatment Not Indicated VTE Drug Contraindication: N/A - Med Ordered
[2024-11-12] MEDS: 0.9 % Sodium Chloride Flush 3 ML SYRINGE IVFLUSH ×3 (09:01→20:18)
[2024-11-12] MEDS: Benzonatate 100 MG CAPSULE PO ×3 (09:02→20:16)
[2024-11-12] MEDS: amLODIPine Besylate 5 MG TABLET PO (09:02)
[2024-11-12] MEDS: predniSONE 20 MG TABLET 40 MG PO (09:02)
[2024-11-12] MEDS: FLUoxetine HCl 10 MG CAPSULE PO (09:02)
[2024-11-12] MEDS: Atorvastatin Calcium 80 MG TABLET PO (09:02)
[2024-11-12] MEDS: Enoxaparin Sodium 40 MG/0.4 ML SYRINGE SUBCUT (09:02)
[2024-11-12] MEDS: Loratadine 10 MG TABLET PO (09:03)
[2024-11-12] MEDS: lisinopriL 20 MG TABLET PO (09:03)
[2024-11-12] MEDS: guaiFEN/Codeine SF 200/20/10ML 10 ML LIQUID 5 ML PO ×2 (09:42→17:11)
[2024-11-12 11:14] LABS: Glucose, Whole Blood 97 mg/dL (60-115)
[2024-11-12 16:27] LABS: Glucose, Whole Blood 132 mg/dL (60-115)
[2024-11-12] MEDS: Azithromycin 250 MG TABLET PO (16:49)
[2024-11-12 20:05] LABS: Glucose, Whole Blood 221 mg/dL (60-115)
[2024-11-12] MEDS: Montelukast Sodium 10 MG TABLET PO (20:16)
[2024-11-12] MEDS: Insulin Lispro 100 UNIT/ML 3 ML VIAL SUBCUT (20:17)
[2024-11-13 07:30] VITALS: BP 151/92; PULSE 80; RESP 16; TEMP 36; O2SAT 94
[2024-11-13 07:47] LABS: Glucose, Whole Blood 81 mg/dL (60-115)
[2024-11-13] MEDS: lisinopriL 20 MG TABLET PO (08:33)
[2024-11-13] MEDS: FLUoxetine HCl 10 MG CAPSULE PO (08:33)
[2024-11-13] MEDS: Enoxaparin Sodium 40 MG/0.4 ML SYRINGE SUBCUT (08:34)
[2024-11-13] MEDS: amLODIPine Besylate 5 MG TABLET PO (08:34)
[2024-11-13] MEDS: 0.9 % Sodium Chloride Flush 3 ML SYRINGE IVFLUSH ×2 (08:34→21:12)
[2024-11-13] MEDS: predniSONE 20 MG TABLET 40 MG PO (08:34)
[2024-11-13] MEDS: Loratadine 10 MG TABLET PO (08:34)
[2024-11-13] MEDS: Atorvastatin Calcium 80 MG TABLET PO (08:34)
[2024-11-13] MEDS: Benzonatate 100 MG CAPSULE PO ×3 (08:34→21:12)
[2024-11-13] MEDS: Albuterol/Iprat 2.5/0.5MG 3 ML AMPUL.NEB INHALE ×3 (08:39→16:05)
[2024-11-13] MEDS: Fluticasone/Vilanterol 200/25 BLST.W.DEV 1 PUFF INHALE (08:39)
[2024-11-13 08:40] VITALS: PULSE 77; RESP 18; O2SAT 98
[2024-11-13] MEDS: guaiFEN/Codeine SF 200/20/10ML 10 ML LIQUID 5 ML PO (08:40)
[2024-11-13 11:45] LABS: Glucose, Whole Blood 115 mg/dL (60-115)
[2024-11-13 12:09] VITALS: PULSE 77; RESP 17; O2SAT 95
[2024-11-13 14:14] VITALS: PULSE 89; PULSE 90; PULSE 91; PULSE 94; O2SAT 83; O2SAT 87; O2SAT 91; O2SAT 92; O2SAT 93
[2024-11-13] MEDS: Azithromycin 250 MG TABLET PO (15:51)
--- NOTE | 2024-11-13 15:53 | MHC.CM.PN ---
per rounds pt could dc today dc plan is for [facility]
[2024-11-13 16:59] VITALS: BP 131/74; PULSE 95; RESP 14; TEMP 36.7; O2SAT 95
[2024-11-13 17:08] LABS: Glucose, Whole Blood 136 mg/dL (60-115)
[2024-11-13] MEDS: Montelukast Sodium 10 MG TABLET PO (21:11)
[2024-11-13 21:38] LABS: Glucose, Whole Blood 118 mg/dL (60-115)
[2024-11-13 23:19] VITALS: BP 142/86; PULSE 78; RESP 18; TEMP 36.3; O2SAT 95
[2024-11-14] MEDS: Fluticasone/Vilanterol 200/25 BLST.W.DEV 1 PUFF INHALE (07:51)
[2024-11-14 07:52] VITALS: PULSE 80; RESP 14; O2SAT 95
[2024-11-14] MEDS: Albuterol/Iprat 2.5/0.5MG 3 ML AMPUL.NEB INHALE (07:52)
[2024-11-14 08:00] VITALS: BP 113/83; PULSE 78; RESP 18; TEMP 36; O2SAT 94
[2024-11-14 08:00] LABS: Glucose, Whole Blood 70 mg/dL (60-115)
[2024-11-14] MEDS: amLODIPine Besylate 5 MG TABLET PO (08:42)
[2024-11-14] MEDS: Enoxaparin Sodium 40 MG/0.4 ML SYRINGE SUBCUT (08:43)
[2024-11-14] MEDS: Benzonatate 100 MG CAPSULE PO ×2 (08:43→14:12)
[2024-11-14] MEDS: Atorvastatin Calcium 80 MG TABLET PO (08:43)
[2024-11-14] MEDS: lisinopriL 20 MG TABLET PO (08:43)
[2024-11-14] MEDS: predniSONE 20 MG TABLET 40 MG PO (08:43)
[2024-11-14] MEDS: Loratadine 10 MG TABLET PO (08:43)
[2024-11-14] MEDS: 0.9 % Sodium Chloride Flush 3 ML SYRINGE IVFLUSH ×2 (08:44→16:42)
[2024-11-14] MEDS: FLUoxetine HCl 10 MG CAPSULE PO (08:45)
[2024-11-14 11:25] LABS: Glucose, Whole Blood 145 mg/dL (60-115)
--- NOTE | 2024-11-14 14:05 | P.DS_ITS ---
DS: Providers Provider Date of Service: 11/14/24 Date of admission: 11/07/24 00:05 Date of discharge: 11/14/24 Primary care physician: Kwesi Cantrell MD Consults: 11/08/24 15:36 Consult to Pulmonology Routine Consulting Provider: [facility] Reason for consultation: severe asthma Has provider been notified: No DS: Diagnosis Discharge Diagnosis (1) Hyperlipidemia: Status: Acute (2) RSV bronchitis: Status: Acute (3) Asthma: Status: Acute DS: Summary Hospital Course Hospital Course: admission hpi Chief Complaint: Dyspnea This is a 69-year-old female with pertinent history of asthma not on home oxygen, hypertension, gpy-qzozbtq-jqzuonyzw diabetes mellitus, mood disorder, mixed hyperlipidemia who presents to the emergency department for evaluation of dyspnea. Patient states she has been feeling unwell for the last 1 week. She has had cough with wheezing. Over the weekend, her symptoms progressed and she was unable to ambulate due to dyspnea as it is worse with exertion. Also she tried her rescue home inhaler but no relief with wheezing. Cough is non productive. Also has generalized body ache with easy fatigability and headache. No sick contacts. No documented fever, chills, chest pain, palpitations, abdominal pain, changes in urinary or bowel habits. In the emergency department, patient with wheezing despite multiple DuoNeb treatments. RSV positive. Dropped to 80% upon ambulation. hospital course: The patient presented with shortness of breath (SOB) and was found to have RSV. She became highly symptomatic, experiencing increasing shortness of breath, cough, diffuse wheezing, and hypoxia, requiring oxygen therapy. She has been treated with IV Solu-Medrol, which has now been transitioned to oral Prednisone, to be tapered off gradually. She is also receiving bronchodilators via nebulizer, cough medications (Tessalon and Robitussin with codeine), and has completed a course of azithromycin for bronchitis. Her symptoms have markedly improved; however, she continues to require oxygen and has qualified for home oxygen. This is expected to be temporary until she fully recovers from the sequelae of RSV. Although I offered her rehabilitation, she prefers to go home. Arrangements will be made for home health services upon discharge. Time Attestation Discharge Coordination Time (in mins): 45 Quality: Safe Use of Opioids Does Pt have an Active Cancer Diagnosis on the Problem List?: No Quality: Stroke Does the patient have a stroke diagnosis?: No Physical Exam Vital Signs: Vital Signs: vitals reviewed and stable DS: Data Data Completed and Pending Labs on day of discharge: Laboratory Results - last 24 hr 11/10/24 11/10/24 11/10/24 11:24 15:57 19:22 POC Glucose 170 H 138 H 151 H 11/11/24 07:30 POC Glucose 98 Discharge Plan Discharge Anticipated Discharge Date/Time: 11/13/24 12:06 Patient Disposition: Home, Self-Care Discharge Diagnosis: RSV related asthma exacerbation Referrals: Kwesi Cantrell MD [Primary Care Provider] - 1 Week Discharge Medications: New codeine-guaifenesin 10-100 mg/5 mL Liquid 5 ml PO Q6H PRN (Reason: Cough) Qty: 120 0RF benzonatate 100 mg Capsule 100 mg PO TID PRN (Reason: cough) Qty: 20 0RF amlodipine 5 mg Tablet 5 mg PO DAILY Qty: 30 0RF Protocol: Hold for SBP< HOLD for SBP < : 90 prednisone 10 mg tablet See Taper PO DIRECTED Qty: 19 0RF Taper: Prednisone 40 mg daily for 2 Days and 0 Hour 30 mg daily for 2 Days and 0 Hour 20 mg daily for 2 Days and 0 Hour 10 mg daily for 1 Day and 0 Hour Rx Instructions: 4tabs daily for 2, 3 tabs daily for 2, 2 tabs daily for 2 day, then 1 tab for 1 day Continued cetirizine 10 mg tablet 10 mg PO DAILY lisinopril 20 mg tablet 20 mg PO DAILY fluoxetine 10 mg capsule 10 mg PO DAILY montelukast 10 mg tablet 10 mg PO BEDTIME albuterol sulfate 90 mcg/actuation HFA aerosol inhaler 2 puff INHALATION Q6H PRN (Reason: wheezing) rosuvastatin 40 mg tablet 40 mg PO DAILY diclofenac sodium 1 % gel 1 g topical Q6H PRN (Reason: joint pain) Dulera 200-5 mcg/actuation Hfa Aerosol Inhaler 1 puff INHALATION BID Diet: Advance to usual diet Activity on Discharge: As tolerated Stand Alone Forms: Patient Portal Discharge page, Work/School Release Print Language: Singaporean Care Plan Goals: recovery from RSV causing asthma exacerbation, cough Health Concerns: RSV, Plan of Treatment: use inhalers as directed take prednisone as directed for asthma follow up with your doctor in a week, call for appointment chest xray normal positive for RSV Assessment: see Patient Instructions: Respiratory Syncytial Virus (ED), Acute Bronchitis (ED)
--- NOTE | 2024-11-14 14:36 | P.F2F_ITS ---
Service Date Service Date: 11/14/24 Encounter Date of encounter: 11/14/24 Reasons for Services Signs and symptoms assessed: shortness of with minimal effor Reason for [facility]: CV/CP assess and/or care and teach disease management Reason for physical therapy: home safety and mobility and energy conservation Homebound: Leaving the home is medically contraindicated at this time without the asist of a device and/or another person due th the listed conditions above and below. Reason homebound: shortness of breath with minimal effort and weakness related to hospital stay Homebound supporting statement: homebound due to shortness of breath with miniaml effort due severe RSV, causing asthma exacerbation now needing home oxygen and therefore needs the assistance of anothe person Certification: Based on the above findings, I certify that this patient is confined to the home and needs intermittent [facility] care, physical therapy and/or speech therapy, or continues to need occupational therapy. The patient is under my care, and I have initiated the establishment of the plan of care. The patient will be followed by a physician who will periodically review the plan of care. Time Spent With Patient Time: Total time managing care of this patient today ____ minutes.
[2024-11-14 16:00] VITALS: BP 121/79; PULSE 95; RESP 18; TEMP 36.4; O2SAT 92
[2024-11-14 16:18] LABS: Glucose, Whole Blood 130 mg/dL (60-115)
[2024-11-14] MEDS: Azithromycin 250 MG TABLET PO (16:39)
== END 2024-11-14 17:51 | disposition home or self-care (01) | DRG 203 ==
LOC: HO.ED 23:39 → HO.EDOVER 11-07 00:08 → HO.S3 11-07 11:07
PROVIDERS: Registered Nurse Emergency; Admitting Provider Student in an Organized Health Care Education/Training Program; Emergency Provider Emergency Medicine; PCP Family Medicine; Visit Provider Internal Medicine
DX: J45.21 Mild intermittent asthma with (acute) exacerbation (principal); E78.2 Mixed hyperlipidemia; I10 Essential (primary) hypertension; B97.4 Respiratory syncytial virus as the cause of diseases classified elsewhere; F39 Unspecified mood [affective] disorder; E11.65 Type 2 diabetes mellitus with hyperglycemia; Z20.822 Contact with and (suspected) exposure to COVID-19; Z87.891 Personal history of nicotine dependence; Z79.899 Other long term (current) drug therapy
CPT/HCPCS: 0241U; 36415; 71045; 71046; 80048; 80053; 82803; 82947; 85025; 85027; 94640; 97161; 99285; J0456; J1650; J2919

== ENCOUNTER → 2024-11-06 15:40 | Outpatient (BNV) | payer OTHER, SELFPAY | PROVIDERS: Visit Provider Radiology Diagnostic Radiology | DX: R05.9 Cough, unspecified (principal) | CPT/HCPCS: 71046 ==

== ENCOUNTER 2024-11-07 00:05 | Outpatient (BNV) | payer MEDICARE, MEDICAID, SELFPAY | END 2024-11-08 16:00 | PROVIDERS: Admitting Provider Student in an Organized Health Care Education/Training Program; Emergency Provider Emergency Medicine; PCP Family Medicine; Visit Provider Radiology Diagnostic Radiology | DX: J98.4 Other disorders of lung (principal); J98.6 Disorders of diaphragm | CPT/HCPCS: 71045 ==

== ENCOUNTER → 2024-11-07 00:05 | Outpatient (BNV) | payer MEDICARE, SELFPAY | PROVIDERS: Admitting Provider Student in an Organized Health Care Education/Training Program; Emergency Provider Emergency Medicine; PCP Family Medicine; Visit Provider Internal Medicine Pulmonary Disease | DX: J45.909 Unspecified asthma, uncomplicated (principal) | CPT/HCPCS: 99222 ==

== ENCOUNTER → 2024-11-07 00:05 | Outpatient (BNV) | payer OTHER, SELFPAY | PROVIDERS: Admitting Provider Student in an Organized Health Care Education/Training Program; Emergency Provider Emergency Medicine; PCP Family Medicine; Visit Provider Student in an Organized Health Care Education/Training Program | DX: E78.5 Hyperlipidemia, unspecified (principal); J20.5 Acute bronchitis due to respiratory syncytial virus; J45.901 Unspecified asthma with (acute) exacerbation | CPT/HCPCS: 99222; 99232; 99499 ==

== ENCOUNTER 2024-12-26 16:03 | Inpatient (IN) | payer MEDICARE, OTHER, SELFPAY ==
--- NOTE | ~2024-12-26 | XR_ITS ---
CLINICAL HISTORY: CP, SOB Chest Radiographs, 2 views Comparison: 11/08/24 Findings: No cardiomegaly. Normal mediastinal contours. No pneumothorax. Moderate elevation of the left hemidiaphragm, unchanged, with adjacent linear opacity indicating atelectasis/scarring. No pleural effusion. Normal upper abdomen. No acute fracture. Impression: No acute findings. Unchanged moderate elevation of the left hemidiaphragm. This document has been electronically signed by: Lissette Rai MD on 12/26/2024 17:55:19
[2024-12-26 16:12] VITALS: BP 123/70; PULSE 104; RESP 24; TEMP 37.1; O2SAT 95; BMI 32.5
--- NOTE | 2024-12-26 16:13 | ED_ITS ---
HPI - SOB/Dyspnea General Chief Complaint: Dyspnea Stated Complaint: DrToña told to come in for CAT Scan Time Seen by Provider: 12/26/24 23:28 Source: patient Mode of arrival: ambulatory Limitations: no limitations History of Present Illness ED Provider: Dr. Carmel Coats HPI Narrative: Patient comes to the emergency room complaining of 4 days of coughing, shortness of breath, wheezing. Patient known to have asthma. Patient states that today she went to see her primary care physician. Patient states that she received a prescription for prednisone and a Z-Ricky. Patient states that she had a chest x- ray done today. Patient states that she does not know if it showed pneumonia. Also, patient states that she had blood work done at her PCP's. Patient received a phone call leading her know that her D-dimer was elevated and that she needed to come to the emergency room for further evaluation. Patient states that she has been giving herself nebulization treatments at home but still feels very short of breath. Related Data Home Medications ?Medication ?Instructions ?Recorded ?Confirmed albuterol sulfate 90 mcg/actuation 2 puff inhalation Q6H PRN wheezing 11/07/24 11/07/24 aerosol inhaler cetirizine 10 mg tablet 10 mg PO DAILY 11/07/24 11/07/24 diclofenac sodium 1 % topical gel 1 g topical Q6H PRN joint pain 11/07/24 11/07/24 fluoxetine 10 mg capsule 10 mg PO DAILY 11/07/24 11/07/24 lisinopril 20 mg tablet 20 mg PO DAILY 11/07/24 11/07/24 mometasone-formoterol HFA 200 1 puff inhalation BID 11/07/24 11/07/24 mcg-5 mcg/actuation aerosol inhaler (Dulera) montelukast 10 mg tablet 10 mg PO BEDTIME 11/07/24 11/07/24 rosuvastatin 40 mg tablet 40 mg PO DAILY 11/07/24 11/07/24 Previous Rx's ?Medication ?Instructions ?Recorded amlodipine 5 mg tablet 5 mg PO DAILY #30 tabs 11/13/24 benzonatate 100 mg capsule 100 mg PO TID PRN cough #20 caps 11/13/24 codeine 10 mg-guaifenesin 100 mg/5 5 ml PO Q6H PRN Cough #120 mL 01/20/25 mL oral liquid prednisone 10 mg tablet See Taper PO DIRECTED #19 tabs 11/13/24 albuterol sulfate 2.5 mg/3 mL 2.5 mg (3 mL) inhalation Q4H PRN 11/14/24 (0.083 %) solution for nebulization shortness of breath or wheezing #180 mL Allergies Allergy/AdvReac Type Severity Reaction Status Date / Time oxycodone [From PERCOCET] Allergy Intermediate PALPITATION Verified 12/26/24 16:16 penicillin G [PENICILLIN G] Allergy Intermediate RASH Verified 12/26/24 16:16 Sulfa (Sulfonamide Allergy Intermediate RASH Verified 12/26/24 16:16 Antibiotics) [SULFA (SULFONAMIDE ANTIBIOTICS)] Review of Systems 2 Review of Systems: Constitutional : No Weight loss, No Fever, No Chills, No Night Sweats, No Fatigue, No Malaise ENT/Mouth : No Hearing loss, No Ear Pain, No Nasal Congestion, No Sinus Pain, No Hoarseness, No sore throat, No Rhinorrhea, No Swallowing Difficulty Eyes: No Eye Pain, No Swelling, No Redness, No Foreign Body, No Discharge, No Vision Changes Cardiovascular : Complaining of chest tightness without Chest Pain, No SOB, No Dyspnea on Exertion, No Orthopnea, No Edema, No Palpitations Respiratory : Cough, wheezing, shortness of breath Gastrointestinal : No Nausea, No Vomiting, No Diarrhea, No Constipation, No abdominal Pain, No Hematochezia, No Melena Genitourinary : no irregular bleeding, No Dysuria, No Urinary Frequency, No Hematuria, No Urinary Incontinence, No Urgency, No Flank Pain, No Urinary Flow Changes, No Hesitancy Musculoskeletal : No joint pain, No Myalgias, No Joint Swelling Skin : No Skin Lesions, No rash Neuro : No Weakness, No Numbness, No Paresthesias, No Loss of Consciousness, No Dizziness, No Headache Psych : No Anxiety/Panic, No Depression, No SI/HI/AH/VH, No Social Issues, Heme/Lymph: No Bruising, No Bleeding,No Lymphadenopathy Endocrine : No Polyuria, No Polydipsia, No Temperature Intolerance PMFSH Past Medical History Medical History Hyperlipidemia Hypertension Anxiety Diabetes Surgical History H/O: hysterectomy Social History Social History Household Members: None Housing: House Do you presently have visiting nurse or other home services: No Alcohol intake: never Comment: STAND BY TO COMMODE Patient Tobacco Use Status: Never used Tobacco Smoked in Last 30 Days: No Use of substances other than those prescribed or required for medical reasons: No Advance Directives: No Advance Directives Information Provided: No service: No Physical Exam 2 Vital Signs: Vital Signs: Last Vital Signs Temp 97.9 F 12/27/24 01:30 Pulse 82 12/27/24 01:30 Resp 18 12/27/24 01:30 BP 123/78 12/27/24 01:30 Pulse Ox 94 12/27/24 02:46 O2 Del Method Nasal Cannula 12/27/24 02:46 O2 Flow Rate 2 12/27/24 02:46 BMI result Body Mass Index 32.5 Const: Other: Appearance: Alert. Oriented X3. No acute distress. Eyes: Pupils equal, round and reactive to light. ENT: Pharynx normal. Neck: Normal inspection. Neck supple. No lymph nodes noted. No crepitus CVS: Normal heart rate and rhythm. Pulses normal. Normal S1 and S2 Respiratory: No respiratory distress. Bilateral wheezing, moderate air movement, actively coughing, dry Abdomen: Soft and nontender. No rigidity. No distention. Skin: Skin warm and dry. Normal skin color. Normal skin turgor. Extremities: No lower extremity edema. No Lacerations. No Rash Neuro: Oriented X 3. No motor deficit. No sensory deficit. Moving all extremities. No slurred speech. CN 2 through 12 grossly intact Psych: calm, cooperative, normal affect Course Course Course Narrative: This is an RME: Additional HPI, ROS, PE not included below will be deferred to primary provider. RME assessment and note performed by: Brielle Bynum PA-C 69 yo female with PMH of HTN, HLD, asthma who presents to the ER with complaints of shortness of breath x 4 days. Reporting pressure like pain in her left side of her chest. had blood work performed today at [facility] and was told to immediately seek emergent care as she may have a blood clot. Oxygen saturation 96%, she was tachycardic between 100-110s. Plan: Labs, EKG, CXR, further ER eval needed Medications Administered Discontinued Medications Generic Name Dose Route Start Last Admin Trade Name Tatyana PRN Reason Stop Dose Admin Albuterol Sulfate 2.5 mg/ 0 mg 12/26/24 23:54 12/26/24 23:56 Albuterol/Ipratropium 3 ml INHALE 12/26/24 23:55 1 dose ONCE ONE Administration Magnesium Sulfate 2 gm in 50 mls @ 25 mls/hr 12/26/24 23:41 12/27/24 01:27 Magnesium Sulfate/H2o IV 12/27/24 01:40 Infused ONCE ONE Infusion Methylprednisolone Sodium Succinate 125 mg 12/26/24 23:41 12/27/24 00:16 Methylprednisolone Sod Succ 125 Mg/2 Ml Vial IVPUSH 12/26/24 23:42 125 mg ONCE ONE Administration Medical Decision Making Medical Decision Making [facility] Narrative: My interpretation of labs: Interval blood cell count normal, 5.8. Patient is chemistry within normal limits. Troponin negative, serology positive for influenza A, D-dimer negative Chest x-ray does not show any acute abnormality. Chronically elevated left hemidiaphragm, known by patient Patient known to have influenza. This is likely triggering her asthma exacerbations. After IV magnesium, Solu-Medrol and neb treatments, patient feeling more comfortable. However, when patient walks around the emergency room, her O2 drops to 85%. I discussed the patient with Dr. Miguel, Patient being admitted Differential Diagnosis Differential Diagnoses: The differential diagnosis associated with the presentation includes (Asthma, COVID, influenza) Admission/Observation Consideration of admission/observation: Escalation of care including admission/observation considered Consult Healthcare Provider Management of the patient was discussed with: Hospitalist Lab Data [facility] Lab Attestation statement: I reviewed the patient's lab results. 12/26/24 16:35 12/26/24 16:35 Labs: Lab Results 12/26/24 12/26/24 Range/Units 16:35 18:06 WBC 5.8 (4.8-10.8) X10*3/uL RBC 5.19 (4.20-5.50) X10*6/uL Hgb 12.1 (12.0-16.0) g/dl Hct 38.5 (37.0-47.0) % MCV 74.2 L (80.0-98.0) fL MCH 23.3 L (27.0-33.0) pg MCHC 31.4 (31.0-35.0) g/dl RDW 15.7 (11.0-16.0) % Plt Count 253 (160-400) X10*3/uL MPV 9.7 (9.4-12.3) fL Immature Gran % (Auto) 0.5 H (0.0-0.4) % Neut % (Auto) 83.1 H (45-73) % Lymph % (Auto) 10.9 L (20-40) % [place] % (Auto) 5.2 (2-11) % Eos % (Auto) 0.0 (0-4) % Baso % (Auto) 0.3 (0-2) % Lymph # (Auto) 0.6 L (1.2-4.9) X10*3/uL [place] # (Auto) 0.3 (0.1-1.2) X10*3/uL Eos # (Auto) 0.0 (0.0-0.4) X10*3/uL Baso # (Auto) 0.0 (0.0-0.2) X10*3/uL Abs Immat Gran (auto) 0.03 (0.00-0.03) X10*3/uL Absolute Neuts (auto) 4.8 (2.0-8.3) x10*3/uL Absolute Nucleated RBC 0.000 (0.0-0.012) X10*3/uL Nucleated RBC % (auto) 0.0 (0.0-0.2) /100WBC PT 11.8 (10.9-12.4) SEC INR 1.0 (0.9-1.1) APTT 33.3 (26.0-36.8) SEC D-Dimer High Sensitivty 183 NG/ML Sodium 138 (135-145) mmol/L Potassium 3.7 (3.3-5.1) mmol/L Chloride 102 (96-108) mmol/L Carbon Dioxide 26 (22-29) mmol/L Anion Gap 14 (12-20) BUN 12 (9-16) mg/dL Creatinine 0.71 (0.5-1.4) mg/dL Estim Creat Clear Calc 75.7 Estimated GFR > 60 Random Glucose 137 H (60-115) mg/dL Calcium 9.4 (8.4-10.2) mg/dL Magnesium 2.0 (1.6-2.6) mg/dL Total Bilirubin 0.4 (0.0-1.0) mg/dL Direct Bilirubin 0.1 (0.0-0.5) mg/dL AST 46 H (5-31) U/L ALT 46 H (0-31) U/L Alkaline Phosphatase 66 (39-117) U/L Troponin I High Sens < 2.7 (<3.5-17.0) ng/L Total Protein 7.8 (6.5-8.0) g/dL Albumin 4.1 (3.5-5.0) g/dL Influenza Type A (PCR) POSITIVE A (Negative) Influenza Type B (PCR) NEGATIVE (Negative) RSV RNA Qual (PCR) NEGATIVE (Negative) SARS-CoV-2 RNA (RT-PCR) NEGATIVE (Negative) Independent Interpretation I performed an independent interpretation of an: Plain X-Ray Radiology Impression Discussion of test interpretation with radiology: I have reviewed the radiologist's reading. Radiologist Impression: No cardiomegaly. Normal mediastinal contours. No pneumothorax. Moderate elevation of the left hemidiaphragm, unchanged, with adjacent linear opacity indicating atelectasis/scarring. No pleural effusion. Normal upper abdomen. No acute fracture. Impression: No acute findings. Unchanged moderate elevation of the left hemidiaphragm. Discharge Plan Discharge Clinical Impression: Asthma with exacerbation, Influenza A Patient Disposition: Admitted As Inpatient Prescriptions: No Action cetirizine 10 mg tablet 10 mg PO DAILY lisinopril 20 mg tablet 20 mg PO DAILY fluoxetine 10 mg capsule 10 mg PO DAILY montelukast 10 mg tablet 10 mg PO BEDTIME albuterol sulfate 90 mcg/actuation HFA aerosol inhaler 2 puff INHALATION Q6H PRN (Reason: wheezing) rosuvastatin 40 mg tablet 40 mg PO DAILY diclofenac sodium 1 % gel 1 g topical Q6H PRN (Reason: joint pain) Dulera 200-5 mcg/actuation Hfa Aerosol Inhaler 1 puff INHALATION BID amlodipine 5 mg Tablet 5 mg PO DAILY Qty: 30 0RF Protocol: Hold for SBP< HOLD for SBP < : 90 codeine-guaifenesin 10-100 mg/5 mL Liquid 5 ml PO Q6H PRN (Reason: Cough) Qty: 120 0RF prednisone 10 mg tablet See Taper PO DIRECTED Qty: 19 0RF Taper: Prednisone 40 mg daily for 2 Days and 0 Hour 30 mg daily for 2 Days and 0 Hour 20 mg daily for 2 Days and 0 Hour 10 mg daily for 1 Day and 0 Hour Rx Instructions: 4tabs daily for 2, 3 tabs daily for 2, 2 tabs daily for 2 day, then 1 tab for 1 day benzonatate 100 mg Capsule 100 mg PO TID PRN (Reason: cough) Qty: 20 0RF albuterol sulfate 2.5 mg /3 mL (0.083 %) solution for nebulization 2.5 mg inhalation Q4H PRN (Reason: shortness of breath or wheezing) Qty: 180 3RF Print Language: Iraqi
--- NOTE | 2024-12-26 16:17 | ECG_ITS ---
Test Reason : sob Blood Pressure : */* mmHG Vent. Rate : 102 BPM Atrial Rate : 102 BPM P-R Int : 118 ms QRS Dur : 70 ms QT Int : 366 ms P-R-T Axes : 25 21 107 degrees QTcB Int : 477 ms Sinus tachycardia Nonspecific T wave abnormality Abnormal ECG When compared with ECG of 04-Mar-2021 09:48, Vent. rate has increased by 38 bpm Referred By: Brielle Bynum Electronically Signed By: ALEXANDRA BRAGG MD
[2024-12-26 16:39] LABS: MANUAL DIFF FLAG NO
[2024-12-26 16:45] LABS: Basophils Percent Auto 0.3 % (0-2); Hematocrit 38.5 % (37.0-47.0); Hemoglobin 12.1 g/dl (12.0-16.0); Imm Gran Abs Auto 0.03 X10*3/uL (0.00-0.03); Imm Gran Pct Auto 0.5 % (0.0-0.4); Lymphocytes Absolute Auto 0.6 X10*3/uL (1.2-4.9); Lymphocytes Percent Auto 10.9 % (20-40); Mean Corpuscular HGB Conc 31.4 g/dl (31.0-35.0); Mean Corpuscular Hemoglobin 23.3 pg (27.0-33.0); Mean Corpuscular Volume 74.2 fL (80.0-98.0); Mean Platelet Volume 9.7 fL (9.4-12.3); Monocytes Absolute Auto 0.3 X10*3/uL (0.1-1.2); Monocytes Percent Auto 5.2 % (2-11); Neutrophils Absolute Auto 4.8 x10*3/uL (2.0-8.3); Neutrophils Percent Auto 83.1 % (45-73); Platelet Count 253 X10*3/uL (160-400); Red Blood Count 5.19 X10*6/uL (4.20-5.50); Red Cell Distribution Width 15.7 % (11.0-16.0); White Blood Count 5.8 X10*3/uL (4.8-10.8)
[2024-12-26 16:57] LABS: Prothrombin Time 11.8 SEC (10.9-12.4)
[2024-12-26 16:59] LABS: Partial Thromboplastin Time 33.3 SEC (26.0-36.8)
[2024-12-26 17:01] LABS: Troponin-I High Sensitivity < 2.7 ng/L (<3.5-17.0)
[2024-12-26 17:02] LABS: Alanine Aminotransferase 46 U/L (0-31); Albumin Level 4.1 g/dL (3.5-5.0); Anion Gap 14 (12-20); Aspartate Amino Transferase 46 U/L (5-31); Bilirubin Direct 0.1 mg/dL (0.0-0.5); Bilirubin Total 0.4 mg/dL (0.0-1.0); Blood Urea Nitrogen 12 mg/dL (9-16); Calcium 9.4 mg/dL (8.4-10.2); Carbon Dioxide 26 mmol/L (22-29); Chloride 102 mmol/L (96-108); Creatinine Clr Calc Pharmacy 75.7; Estimated Glomerular Filt Rate > 60; Glucose Random 137 mg/dL (60-115); Potassium 3.7 mmol/L (3.3-5.1); Sodium 138 mmol/L (135-145); Total Protein 7.8 g/dL (6.5-8.0)
[2024-12-26 18:09] LABS: Alkaline Phosphatase 66 U/L (39-117)
[2024-12-26 18:53] LABS: Influenza A PCR POSITIVE (Negative); Influenza B PCR NEGATIVE (Negative); Resp Syncy Virus RNA Qual PCR NEGATIVE (Negative); SARS COV2 PCR INHOUSE NEGATIVE (Negative)
[2024-12-26 23:14] VITALS: BP 121/83; PULSE 93; RESP 24; TEMP 36.1; O2SAT 94
[2024-12-26 23:50] LABS: D Dimer High Sensitivity 183 NG/ML
[2024-12-26] MEDS: Albuterol Sulfate 2.5 MG, Albuterol/Iprat 2.5/0.5MG 3 ML 3 ML INHALE (23:56)
[2024-12-26 23:57] VITALS: PULSE 93; RESP 22; O2SAT 95
[2024-12-27] VITALS (14 sets, daily range): BP systolic 100–134; BP diastolic 55–88; PULSE 72–92; RESP 14–20; TEMP 36.1–37; O2SAT 16–99
[2024-12-27] MEDS: Magnesium Sulfate/H2O 2 GM/50 ML PIGGYBACK IV (00:16)
[2024-12-27] MEDS: methylPREDNISolone Sod Succ 125 MG/2 ML VIAL IVPUSH (00:16)
--- NOTE | 2024-12-27 01:31 | PC.NURSE ---
pt has pain to her stomach and back. occassional cough nonprod.
--- NOTE | 2024-12-27 02:44 | PC.NURSE ---
pt did a ambulatione trial on room air. pt made it half way around the ed and sats started to drop slowly. when pt arrived back to her room, sob, tired, sat 85% on room air. pt placed on 2L nc with good effect, sat improved to 95% on 2L. plan is to admit pt. pt is aware and is calling family.
--- NOTE | 2024-12-27 04:51 | PM.IMHP ---
History of Present Illness Date of Service: 12/27/24 Attending physician on admission: Amarjit Miguel Chief Complaint: Shortness of breath Patient is a 69-year-old female with medical history of asthma (recently started on home oxygen), hypertension, phf-ljbljxx-jnangozpa diabetes mellitus, mood disorder, and mixed hyperlipidemia who presents to the emergency department from home for evaluation of progressively worsening shortness of breath with associated cough and wheezing. She has been feeling unwell for several days now with a mostly dry cough, wheezing, and chest and belly pain when she coughs. She has been using her nebulizers at home but continues to feel short of breath. She went to see her primary provider today and was started on oral Azithromycin and Prednisone. However, after she left the clinic, she received a phone call advising her to come to the ED and get a chest CT angiogram as her D-Dimer was elevated. On arrival she had a chest x-ray done that was normal but was noted to be hypoxic with a further drop in her SpO2 when she ambulated. She tested positive for Influenza A and so was started on Tamiflu and also Albuterol updrafts. Admission was requested for continued care Review of Systems Review of Systems: Yes all other systems are reviewed and are negative [facility] Medical History (Updated 12/27/24 @ 05:36 by Amarjit Miguel MD) Obesity (BMI 30.0-34.9) Asthma Hyperlipidemia Hypertension Anxiety Diabetes Functional capacity: independent ambulation Patient : No Pertinent family history: This was reviewed with the patient and is not relevant to current admission. Surgical History H/O: hysterectomy Social History Household Members: None Housing: House Do you presently have visiting nurse or other home services: No Alcohol intake: never Comment: STAND BY TO COMMODE Patient Tobacco Use Status: Never used Tobacco service: No Meds Allergies Allergy/AdvReac Type Severity Reaction Status Date / Time oxycodone [From PERCOCET] Allergy Intermediate PALPITATION Verified 12/26/24 16:16 penicillin G [PENICILLIN G] Allergy Intermediate RASH Verified 12/26/24 16:16 Sulfa (Sulfonamide Allergy Intermediate RASH Verified 12/26/24 16:16 Antibiotics) [SULFA (SULFONAMIDE ANTIBIOTICS)] Home Medications ?Medication ?Instructions ?Recorded ?Confirmed ?Last Taken ?Type albuterol sulfate 90 mcg/actuation 2 puff inhalation Q6H PRN wheezing 11/07/24 11/07/24 Unknown History aerosol inhaler cetirizine 10 mg tablet 10 mg PO DAILY 11/07/24 11/07/24 Unknown History diclofenac sodium 1 % topical gel 1 g topical Q6H PRN joint pain 11/07/24 11/07/24 Unknown History fluoxetine 10 mg capsule 10 mg PO DAILY 11/07/24 11/07/24 11/06/24 History lisinopril 20 mg tablet 20 mg PO DAILY 11/07/24 11/07/24 11/06/24 History mometasone-formoterol HFA 200 1 puff inhalation BID 11/07/24 11/07/24 Unknown History mcg-5 mcg/actuation aerosol inhaler (Dulera) montelukast 10 mg tablet 10 mg PO BEDTIME 11/07/24 11/07/24 Unknown History rosuvastatin 40 mg tablet 40 mg PO DAILY 11/07/24 11/07/24 11/06/24 History Physical Exam Vital Signs and Narrative: Vital Signs: Last Vital Signs Temp 97.8 F 12/27/24 04:00 Pulse 92 12/27/24 04:00 Resp 16 12/27/24 04:00 BP 134/88 12/27/24 04:00 Pulse Ox 94 12/27/24 04:00 O2 Del Method Nasal Cannula 12/27/24 04:00 O2 Flow Rate 2 12/27/24 04:00 BMI result Body Mass Index 32.5 General: Well nourished. Awake, alert and oriented x 4. No apparent distress Eyes: No pallor or jaundice. PERRLA, EOMI HENT: Moist oral mucus membranes. No oropharyngeal lesions. Neck: Supple. No cervical adenopathy. No JVD Cardiovascular: Regular rate and rhythm. Normal heart sounds. No murmurs, rubs or gallops. No JVD. No peripheral edema. Respiratory: Good BS bilaterally with few scattered end expiratory wheezes. No rales or rhonchi. No accessory muscle use. Gastrointestinal: Abdomen is soft, non-tender, non-distended. Normo-active bowel sounds in all quadrants. No hepatosplenomegaly Extremities: No edema. No calf tenderness. Good peripheral pulses Skin - Warm/Dry. No rashes. No mottling. Capillary refill is < 2 seconds Neurological - AAOx4. Intact speech & cognition. Normal gait & balance. CN II - XII grossly intact but not individually tested. No motor or sensory deficits Hematologic: No bleeding. No ecchymosis. No swollen or tender lymph nodes. Psychiatric: Cooperative. Appropriate mood and affect . Results Labs 12/26/24 16:35 12/26/24 16:35 Labs: Laboratory Results - last 24 hr 12/26/24 12/26/24 16:35 18:06 MCV 74.2 L MCH 23.3 L MCHC 31.4 RDW 15.7 Plt Count 253 MPV 9.7 Immature Gran % (Auto) 0.5 H Neut % (Auto) 83.1 H Lymph % (Auto) 10.9 L [place] % (Auto) 5.2 Eos % (Auto) 0.0 Baso % (Auto) 0.3 Lymph # (Auto) 0.6 L [place] # (Auto) 0.3 Eos # (Auto) 0.0 Baso # (Auto) 0.0 Abs Immat Gran (auto) 0.03 Absolute Neuts (auto) 4.8 Absolute Nucleated RBC 0.000 Nucleated RBC % (auto) 0.0 PT 11.8 INR 1.0 APTT 33.3 D-Dimer High Sensitivty 183 Anion Gap 14 Estim Creat Clear Calc 75.7 Estimated GFR > 60 Random Glucose 137 H Calcium 9.4 Magnesium 2.0 Total Bilirubin 0.4 Direct Bilirubin 0.1 AST 46 H ALT 46 H Alkaline Phosphatase 66 Total Protein 7.8 Albumin 4.1 Influenza Type A (PCR) POSITIVE A Influenza Type B (PCR) NEGATIVE RSV RNA Qual (PCR) NEGATIVE SARS-CoV-2 RNA (RT-PCR) NEGATIVE Assessment and Plan (1) Acute respiratory failure with hypoxia: Status: Acute (2) Asthma with exacerbation: Qualifiers: Asthma severity: moderate Asthma persistence: persistent Qualified Code(s): J45.41 - Moderate persistent asthma with (acute) exacerbation Status: Acute (3) Influenza A: Status: Acute (4) Hypertension: Qualifiers: Hypertension type: primary hypertension Qualified Code(s): I10 - Essential (primary) hypertension Status: Acute (5) Obesity (BMI 30.0-34.9): Status: Acute Plan 69-year-old female with medical history of asthma (recently started on home oxygen), hypertension, goa-nevfxss-lpktrkoin diabetes mellitus, mood disorder, and mixed hyperlipidemia here with # Acute respiratory failure with hypoxia # Acute asthma exacerbation - admit and continue with scheduled montelukast, steroids an Duo Nebs - add PRN Albuterol updrafts - check peak flow after each treatment - continue PRN analgesics for NAMITA chest and abdominal pain - will need to continue with supplemental Oxygen at home # Influenza A infection - likely contribuing to asthma exacerbation and hypoxia - start of Tamiflu - continue to monitor # Essential Hypertension - resume Amlodipine & Lisinopril # Hyperlipidemia - resume Rosuvastatin DVT: SC Lovenox CODE STATUS: Full code Admission for at least 1- 2 midnights for management of asthma exacerbation This note is constructed using voice recognition software. While every effort has been made to ensure accuracy, top bottom attaching machine operator errors may have been included. Total time managing care of this patient today: 55 minutes. Quality Stroke Does the patient have a stroke diagnosis?: No VTE Prior VTE?: No VTE Risk Level:: Medical - moderate - high VTE Device Contraindication: Treatment Not Indicated VTE Drug Contraindication: N/A - Med Ordered
[2024-12-27] MEDS: Albuterol/Iprat 2.5/0.5MG 3 ML AMPUL.NEB INHALE ×3 (07:42→18:58)
[2024-12-27] MEDS: 0.9 % Sodium Chloride Flush 3 ML SYRINGE IVFLUSH ×2 (07:59→16:45)
[2024-12-27] MEDS: Oseltamivir Phosphate 75 MG CAPSULE PO ×2 (08:00→21:11)
[2024-12-27] MEDS: Enoxaparin Sodium 40 MG/0.4 ML SYRINGE SUBCUT (08:00)
[2024-12-27] MEDS: methylPREDNISolone Sod Succ 40 MG/ML VIAL IVPUSH ×2 (08:00→21:13)
--- NOTE | 2024-12-27 08:49 | PHA.MEDREC ---
Addendum entered by Anthony Dutton [facility] 12/27/24 08:56: MED REC CHECKED BY [facility] Original Note: Pharmacy Consult ? Medication Reconciliation Pharmacy has completed the medication reconciliation. Spoke with patient to confirm. She says she takes Dulera bid, LF [id number]. She picked up Azithromycin, prednisone, codeine with guaifenesin, and benzonatae yesterday, confirmed with [facility]. Her prednisone taper is 30 mg x3 days, 20 mg x3 days, and 10 mg x3 days. She took 3 tablets of prednisone and 2 tablets of azithromycin yesterday.
--- NOTE | 2024-12-27 11:11 | PM.EVENT ---
Event Note Date of Service: 12/27/24 Event Note: Complaining of persistent shortness of breath and wheeze 69-year-old female with medical history of asthma (recently started on home oxygen), hypertension, hkj-ecyoive-lfrskjlaw diabetes mellitus, mood disorder, and mixed hyperlipidemia here with # Acute respiratory failure with hypoxia with acute asthma exacerbation with history of mild persistent asthma due to influenza A infection - continue with scheduled montelukast, iv steroids an Duo Nebs - PRN Albuterol updrafts - Tamiflu - continue PRN analgesics for NAMITA chest and abdominal pain - continue supplemental Oxygen # Essential Hypertension - resume Amlodipine and hold Lisinopril due due to soft blood pressure # Hyperlipidemia - resume Rosuvastatin # class 1 obesity recommend low-calorie diet DVT: SC Lovenox CODE STATUS: Full code Time Spent With Patient Time: Total time managing care of this patient today ____ minutes.
--- NOTE | 2024-12-27 11:41 | MHC.CM.PN ---
pt lives alone is active with [facility] does have her own ride home dc plan home with ns
[2024-12-27] MEDS: Atorvastatin Calcium 80 MG TABLET PO (12:16)
[2024-12-27] MEDS: guaiFENesin DM 200/20/10 ML 10 ML SYRUP PO ×3 (12:16→21:11)
[2024-12-27] MEDS: Montelukast Sodium 10 MG TABLET PO (21:11)
[2024-12-27] MEDS: Albuterol Sulfate (0.083%) 2.5 MG/3 ML VIAL.NEB INHALE (23:37)
[2024-12-28] VITALS (11 sets, daily range): BP systolic 113–155; BP diastolic 65–75; PULSE 61–106; RESP 16–24; TEMP 36.1–36.7; O2SAT 85–96
[2024-12-28 05:17] LABS: MANUAL DIFF FLAG NO
[2024-12-28 05:19] LABS: Hematocrit 35.5 % (37.0-47.0); Hemoglobin 11.1 g/dl (12.0-16.0); Imm Gran Abs Auto 0.02 X10*3/uL (0.00-0.03); Imm Gran Pct Auto 0.3 % (0.0-0.4); Lymphocytes Absolute Auto 0.6 X10*3/uL (1.2-4.9); Lymphocytes Percent Auto 10.1 % (20-40); Mean Corpuscular HGB Conc 31.3 g/dl (31.0-35.0); Mean Corpuscular Hemoglobin 22.8 pg (27.0-33.0); Mean Corpuscular Volume 72.9 fL (80.0-98.0); Mean Platelet Volume 9.9 fL (9.4-12.3); Monocytes Absolute Auto 0.4 X10*3/uL (0.1-1.2); Monocytes Percent Auto 6.2 % (2-11); Neutrophils Percent Auto 83.4 % (45-73); Platelet Count 262 X10*3/uL (160-400); Red Blood Count 4.87 X10*6/uL (4.20-5.50); Red Cell Distribution Width 15.6 % (11.0-16.0)
[2024-12-28 05:33] LABS: Anion Gap 12 (12-20); Blood Urea Nitrogen 12 mg/dL (9-16); Calcium 9.3 mg/dL (8.4-10.2); Carbon Dioxide 26 mmol/L (22-29); Chloride 102 mmol/L (96-108); Creatinine Clr Calc Pharmacy 83.9; Estimated Glomerular Filt Rate > 60; Glucose Random 130 mg/dL (60-115); Potassium 4.6 mmol/L (3.3-5.1); Sodium 135 mmol/L (135-145)
[2024-12-28] MEDS: Albuterol/Iprat 2.5/0.5MG 3 ML AMPUL.NEB INHALE ×4 (08:31→19:39)
[2024-12-28] MEDS: amLODIPine Besylate 5 MG TABLET PO (08:57)
[2024-12-28] MEDS: Oseltamivir Phosphate 75 MG CAPSULE PO ×2 (08:57→20:14)
[2024-12-28] MEDS: Atorvastatin Calcium 80 MG TABLET PO (08:57)
[2024-12-28] MEDS: Enoxaparin Sodium 40 MG/0.4 ML SYRINGE SUBCUT (08:59)
[2024-12-28] MEDS: methylPREDNISolone Sod Succ 40 MG/ML VIAL IVPUSH ×2 (08:59→20:14)
[2024-12-28] MEDS: Loratadine 10 MG TABLET PO (08:59)
[2024-12-28] MEDS: guaiFENesin DM 200/20/10 ML 10 ML SYRUP PO ×4 (09:00→20:14)
--- NOTE | 2024-12-28 09:00 | PC.NURSE ---
Med administration delayed d/t not having med in [facility]. Pharmacy notified.
[2024-12-28] MEDS: 0.9 % Sodium Chloride Flush 3 ML SYRINGE IVFLUSH ×3 (09:07→20:15)
--- NOTE | 2024-12-28 11:13 | HO.PM.IMPN ---
Subjective Subjective Date of Service: 12/28/24 Interval History: Being followed for influenza a infection causing acute asthma infection and hypoxia Complaining of persistent shortness of breath, chest tightness, cough, denies fever, no chills, tolerating diet, no nausea, no vomiting, no acute events overnight. Review of Systems All other system reviewed and negative Physical Exam Vital Signs: Vital Signs: Last Vital Signs Temp 98.0 F 12/28/24 09:01 Pulse 106 H 12/28/24 09:01 Resp 20 12/28/24 09:01 BP 125/70 12/28/24 09:01 Pulse Ox 96 12/28/24 09:01 O2 Del Method Nasal Cannula 12/28/24 09:01 O2 Flow Rate 1 12/28/24 09:01 BMI result Body Mass Index 32.5 Const: Other: General intermittent coughing Neck no JVD. CVS regular rate rhythm, Respiratory lungs bilateral expiratory rhonchi, no use of accessory muscles Gastrointestinal abdomen soft, non tender, bowel sounds audible Extremities no edema. Neuro non focal Skin no rash Psych appropriate affect Objective Data Active Medications Acetaminophen (Acetaminophen 325 Mg Tablet) 650 mg PO Q6H PRN PRN Reason: Pain, Mild 1-3,fever,headache Al Hydroxide/Mg Hydroxide (Magnesium Hydrox/Alum Hydrox 30 Ml Oral.Susp) 30 ml PO Q4H PRN PRN Reason: Heartburn Albuterol Sulfate (Albuterol Sulfate (0.083%) 2.5 Mg/3 Ml Vial.Neb) 2.5 mg INHALE Q4H PRN PRN Reason: Shortness of Breath/Wheezing Last Admin: 12/27/24 23:37 Dose: 2.5 mg Documented By: ARLETTE Albuterol/Ipratropium (Albuterol/Iprat 2.5/0.5mg 3 Ml Ampul.Neb) 3 ml INHALE RQ4H WHILE AWAKE [facility] Last Admin: 12/28/24 08:31 Dose: 3 ml Documented By: NEPTALI Amlodipine Besylate (Amlodipine Besylate 5 Mg Tablet) 5 mg PO DAILY [facility]; Protocol Last Admin: 12/28/24 08:57 Dose: 5 mg Documented By: JOVAN Atorvastatin Calcium (Atorvastatin Calcium 80 Mg Tablet) 80 mg PO DAILY [facility] Last Admin: 12/28/24 08:57 Dose: 80 mg Documented By: JOVAN Calcium Carbonate (Calcium Carbonate 750 Mg Tab.Chew) 750 mg PO Q4H PRN PRN Reason: Heartburn Enoxaparin Sodium (Enoxaparin Sodium 40 Mg/0.4 Ml Syringe) 40 mg SUBCUT DAILY [facility] Last Admin: 12/28/24 08:59 Dose: 40 mg Documented By: JOVAN Fluoxetine HCl (Fluoxetine Hcl 10 Mg Capsule) 10 mg PO DAILY [facility] Guaifenesin/Dextromethorphan (Guaifenesin Dm 200/20/10 Ml 10 Ml Syrup) 10 ml PO QID [facility] Last Admin: 12/28/24 09:00 Dose: 10 ml Documented By: JOVAN Ketorolac Tromethamine (Ketorolac Tromethamine 30 Mg/Ml Vial) 30 mg IVPUSH Q6H PRN PRN Reason: Pain, Severe (Pain Scale 7-10) Stop: 01/01/25 04:40 Loratadine (Loratadine 10 Mg Tablet) 10 mg PO DAILY [facility] Last Admin: 12/28/24 08:59 Dose: 10 mg Documented By: JOVAN Magnesium Hydroxide (Milk Of Magnesia 30 Ml Oral.Susp) 30 ml PO DAILY PRN PRN Reason: Constipation Melatonin (Melatonin 3 Mg Tablet) 6 mg PO BEDTIME PRN PRN Reason: Insomnia Methylprednisolone Sodium Succinate (Methylprednisolone Sod Succ 40 Mg/Ml Vial) 40 mg IVPUSH BID [facility] Last Admin: 12/28/24 08:59 Dose: 40 mg Documented By: JOVAN Montelukast Sodium (Montelukast Sodium 10 Mg Tablet) 10 mg PO BEDTIME [facility] Last Admin: 12/27/24 21:11 Dose: 10 mg Documented By: ZULEYKA Ondansetron HCl (Ondansetron Hcl 4 Mg/2 Ml Vial) 4 mg IVPUSH Q8H PRN PRN Reason: Nausea and Vomiting Oseltamivir Phosphate (Oseltamivir Phosphate 75 Mg Capsule) 75 mg PO BID [facility] Stop: 12/31/24 21:01 Last Admin: 12/28/24 08:57 Dose: 75 mg Documented By: JOVAN Senna (Sennosides 8.6 Mg Tablet) 17.2 mg PO BEDTIME PRN PRN Reason: Constipation Sodium Chloride (0.9 % Sodium Chloride Flush 3 Ml Syringe) 3 ml IVFLUSH QSHIFT [facility] Last Admin: 12/28/24 09:07 Dose: 3 ml Documented By: JOVAN Labs 12/28/24 04:38 12/28/24 04:38 Labs: Laboratory Results - last 24 hr 12/28/24 04:38 MCV 72.9 L MCH 22.8 L MCHC 31.3 RDW 15.6 Plt Count 262 MPV 9.9 Immature Gran % (Auto) 0.3 Neut % (Auto) 83.4 H Lymph % (Auto) 10.1 L [place] % (Auto) 6.2 Eos % (Auto) 0.0 Baso % (Auto) 0.0 Lymph # (Auto) 0.6 L [place] # (Auto) 0.4 Eos # (Auto) 0.0 Baso # (Auto) 0.0 Abs Immat Gran (auto) 0.02 Absolute Neuts (auto) 5.0 Absolute Nucleated RBC 0.000 Nucleated RBC % (auto) 0.0 Anion Gap 12 Estim Creat Clear Calc 83.9 Estimated GFR > 60 Random Glucose 130 H Calcium 9.3 Assessment and Plan (1) Acute respiratory failure with hypoxia: Status: Acute (2) Obesity (BMI 30.0-34.9): Status: Acute (3) Influenza A: Status: Acute (4) Asthma with exacerbation: Status: Acute (5) Hypertension: Status: Acute Plan 69-year-old female with medical history of asthma (recently started on home oxygen), hypertension, ykv-afwsyfy-ussfpejeu diabetes mellitus, mood disorder, and mixed hyperlipidemia here with # Acute respiratory failure with hypoxia with acute asthma exacerbation with history of mild persistent asthma due to influenza A infection - persistent symptoms, continue with scheduled montelukast, iv steroids 40 mg b.i.d. and Duo Nebs q.4 hours while awake - PRN Albuterol updrafts, scheduled cough medication - Tamiflu end date 12 31 - continue supplemental Oxygen , patient recently discharged on oxygen 2 L at rest and 4 L with activity after suffering from RSV infection in October # Essential Hypertension - continue Amlodipine and hold Lisinopril due due to soft blood pressure # Hyperlipidemia - continue statin # class 1 obesity recommend low-calorie diet DVT: SC Lovenox CODE STATUS: Full code Quality Stroke Does the patient have a stroke diagnosis?: No VTE Prior VTE?: No VTE Risk Level:: Medical - moderate - high VTE Device Contraindication: Treatment Not Indicated VTE Drug Contraindication: N/A - Med Ordered
[2024-12-28] MEDS: FLUoxetine HCl 10 MG CAPSULE PO (12:28)
[2024-12-28] MEDS: Montelukast Sodium 10 MG TABLET PO (20:14)
[2024-12-29] VITALS (8 sets, daily range): BP systolic 133–151; BP diastolic 72–90; PULSE 60–88; RESP 16–20; TEMP 36.1–36.7; O2SAT 90–96
[2024-12-29] MEDS: Albuterol/Iprat 2.5/0.5MG 3 ML AMPUL.NEB INHALE ×4 (08:03→21:22)
[2024-12-29] MEDS: guaiFENesin DM 200/20/10 ML 10 ML SYRUP PO ×4 (08:14→21:52)
[2024-12-29] MEDS: Oseltamivir Phosphate 75 MG CAPSULE PO ×2 (08:15→21:52)
[2024-12-29] MEDS: Enoxaparin Sodium 40 MG/0.4 ML SYRINGE SUBCUT (08:15)
[2024-12-29] MEDS: FLUoxetine HCl 10 MG CAPSULE PO (08:15)
[2024-12-29] MEDS: Atorvastatin Calcium 80 MG TABLET PO (08:15)
[2024-12-29] MEDS: 0.9 % Sodium Chloride Flush 3 ML SYRINGE IVFLUSH ×3 (08:15→21:52)
[2024-12-29] MEDS: amLODIPine Besylate 5 MG TABLET PO (08:15)
[2024-12-29] MEDS: Loratadine 10 MG TABLET PO (08:15)
[2024-12-29] MEDS: methylPREDNISolone Sod Succ 40 MG/ML VIAL IVPUSH ×2 (08:15→21:52)
--- NOTE | 2024-12-29 11:01 | PM.DS ---
DS: Providers Provider Date of Service: 12/30/24 Date of admission: 12/27/24 11:31 Date of discharge: 12/30/24 Primary care physician: Kwesi Cantrell MD DS: Diagnosis Discharge Diagnosis (1) Acute respiratory failure with hypoxia: Status: Acute (2) Obesity (BMI 30.0-34.9): Status: Acute (3) Influenza A: Status: Acute (4) Asthma with exacerbation: Status: Acute (5) Hypertension: Status: Acute DS: Summary Hospital Course Hospital Course: History of presenting illness: Date of Service: 12/27/24 Attending physician on admission: Amarjit Miguel Chief Complaint: Shortness of breath Patient is a 69-year-old female with medical history of asthma (recently started on home oxygen), hypertension, erv-cshvhzp-vvkfdhkrx diabetes mellitus, mood disorder, and mixed hyperlipidemia who presents to the emergency department from home for evaluation of progressively worsening shortness of breath with associated cough and wheezing. She has been feeling unwell for several days now with a mostly dry cough, wheezing, and chest and belly pain when she coughs. She has been using her nebulizers at home but continues to feel short of breath. She went to see her primary provider today and was started on oral Azithromycin and Prednisone. However, after she left the clinic, she received a phone call advising her to come to the ED and get a chest CT angiogram as her D-Dimer was elevated. On arrival she had a chest x-ray done that was normal but was noted to be hypoxic with a further drop in her SpO2 when she ambulated. She tested positive for Influenza A and so was started on Tamiflu and also Albuterol updrafts. Admission was requested for continued care. Hospital course: 69-year-old female with medical history of asthma (recently started on home oxygen), hypertension, uow-ukwcruu-bpzsvtxnk diabetes mellitus, mood disorder, and mixed hyperlipidemia admitted with Acute respiratory failure with hypoxia with acute asthma exacerbation with history of mild persistent asthma due to influenza A infection, and treated with IV steroids, scheduled and as needed DuoNeb treatment, Tamiflu and cough medication and was placed on oxygen 2 L at rest and 4 L with activity that was recently started 1 month ago after suffering from RSV infection in October, patient responded well to above treatment, feels significantly better therefore discharged home on tapering dose of steroids that were ordered by PCP, recommend to take 2 more days of Tamiflu to finish a total 5 day course, recommend to rest, avoid crowded places and continue cough syrup updraft as needed. Essential Hypertension recommend to continue amlodipine and lisinopril Hyperlipidemia - continue statin Time Attestation Discharge Coordination Time (in mins): 40 Quality: Safe Use of Opioids Does Pt have an Active Cancer Diagnosis on the Problem List?: No Quality: Stroke Does the patient have a stroke diagnosis?: No Physical Exam Vital Signs: Vital Signs: Last Vital Signs Temp 98.1 F 12/29/24 07:27 Pulse 60 12/29/24 08:03 Resp 18 12/29/24 08:03 BP 151/90 H 12/29/24 07:27 Pulse Ox 95 12/29/24 07:27 O2 Del Method Nasal Cannula 12/29/24 07:27 O2 Flow Rate 2.0 12/29/24 07:27 BMI result Body Mass Index 32.5 Const: Other: General intermittent coughing Neck no JVD. CVS regular rate rhythm, Respiratory lungs no wheeze, no rhonchi knee, no use of accessory muscles Gastrointestinal abdomen soft, non tender, bowel sounds audible Extremities no edema. Neuro non focal Skin no rash Psych appropriate affect Discharge Plan Discharge Anticipated Discharge Date/Time: 12/29/24 10:56 Patient Disposition: Home Health Service Discharge Diagnosis: Acute respiratory failure with hypoxia Acute asthma exacerbation Influenza a infection Referrals: Kwesi Cantrell MD [Primary Care Provider] - 1 Week Discharge Medications: New oseltamivir [Tamiflu] 75 mg Capsule 75 mg PO BID Qty: 3 0RF Continued cetirizine 10 mg tablet 10 mg PO DAILY lisinopril 20 mg tablet 20 mg PO DAILY fluoxetine 10 mg capsule 10 mg PO DAILY montelukast 10 mg tablet 10 mg PO BEDTIME albuterol sulfate 90 mcg/actuation HFA aerosol inhaler 2 puff INHALATION Q6H PRN (Reason: wheezing) rosuvastatin 40 mg tablet 40 mg PO DAILY diclofenac sodium 1 % gel 1 g topical Q6H PRN (Reason: joint pain) Dulera 200-5 mcg/actuation Hfa Aerosol Inhaler 1 puff INHALATION BID amlodipine 5 mg Tablet 5 mg PO DAILY Qty: 30 0RF Protocol: Hold for SBP< HOLD for SBP < : 90 benzonatate 100 mg Capsule 100 mg PO TID PRN (Reason: cough) Qty: 20 0RF albuterol sulfate 2.5 mg /3 mL (0.083 %) solution for nebulization 2.5 mg inhalation Q4H PRN (Reason: shortness of breath or wheezing) Qty: 180 3RF prednisone 10 mg tablet See Taper PO DIRECTED Taper: Prednisone 30 mg daily for 3 Days and 0 Hour 20 mg daily for 3 Days and 0 Hour 10 mg daily for 3 Days and 0 Hour Rx Instructions: Confirmed taper with [facility] 12/28/23 codeine-guaifenesin 10-100 mg/5 mL liquid 5 ml PO BID MDD 10 ml PRN (Reason: Cough) Rx Instructions: Confirmed with [facility] 12/27/24 Discontinued azithromycin 250 mg tablet See Rx Instructions .ROUTE .COMPLEX Rx Instructions: Take 2 tablets on day 1, then take 1 tablet daily thereafter Discharge Orders: Discharge Order (Routine); Ordered 12/30/24 Ordered By: Ruthie Melendez Diet: Advance to usual diet Activity on Discharge: As tolerated Stand Alone Forms: Patient Portal Discharge page Print Language: Sinhala Care Plan Goals: Take prednisone taper as ordered by PCP In regard to influenza A, Take Tamiflu 1 tablet twice daily 4. Dispensed Use DuoNeb updraft 4 times a day for next 2-3 days and then as needed Continue oxygen 2 L at rest and 4 L at activity as before Health Concerns: Continue all home medications as before Plan of Treatment: Outpatient follow-up with primary care physician, call for appointment Assessment: As above
--- NOTE | 2024-12-29 14:55 | MHC.CM.PN ---
per rounds pt may be dcd today dc plan is home w/[facility] when pt medically ready
--- NOTE | 2024-12-29 15:33 | HO.PM.IMPN ---
Subjective Subjective Date of Service: 12/29/24 Interval History: Feeling better this morning less shortness of breath, felt jittery after use of DuoNeb, later in the day developed shortness of breath with activity with audible wheeze, persistent congested cough, denies fever, no chills tolerating diet no other acute events overnight. Review of Systems All other system reviewed and are negative Physical Exam Vital Signs: Vital Signs: Last Vital Signs Temp 97.5 F 12/29/24 15:30 Pulse 70 12/29/24 15:30 Resp 19 12/29/24 15:30 BP 137/77 12/29/24 15:30 Pulse Ox 94 12/29/24 15:30 O2 Del Method Nasal Cannula 12/29/24 15:30 O2 Flow Rate 2 12/29/24 15:30 BMI result Body Mass Index 32.5 Const: Other: General in no acute distress Neck no JVD. CVS regular rate rhythm, Respiratory lungs no acute distress, expiratory wheeze Gastrointestinal abdomen soft, non tender, bowel sounds audible Extremities no edema. Neuro non focal Skin no rash Psych appropriate affect Objective Data Active Medications Acetaminophen (Acetaminophen 325 Mg Tablet) 650 mg PO Q6H PRN PRN Reason: Pain, Mild 1-3,fever,headache Al Hydroxide/Mg Hydroxide (Magnesium Hydrox/Alum Hydrox 30 Ml Oral.Susp) 30 ml PO Q4H PRN PRN Reason: Heartburn Albuterol Sulfate (Albuterol Sulfate (0.083%) 2.5 Mg/3 Ml Vial.Neb) 2.5 mg INHALE Q4H PRN PRN Reason: Shortness of Breath/Wheezing Last Admin: 12/27/24 23:37 Dose: 2.5 mg Documented By: ARLETTE Albuterol/Ipratropium (Albuterol/Iprat 2.5/0.5mg 3 Ml Ampul.Neb) 3 ml INHALE RQ4H WHILE AWAKE [facility] Last Admin: 12/29/24 15:23 Dose: 3 ml Documented By: LORI Amlodipine Besylate (Amlodipine Besylate 5 Mg Tablet) 5 mg PO DAILY [facility]; Protocol Last Admin: 12/29/24 08:15 Dose: 5 mg Documented By: FRANCESCA Atorvastatin Calcium (Atorvastatin Calcium 80 Mg Tablet) 80 mg PO DAILY [facility] [place] Last Admin: 12/29/24 08:15 Dose: 80 mg Documented By: FRANCESCA Calcium Carbonate (Calcium Carbonate 750 Mg Tab.Chew) 750 mg PO Q4H PRN PRN Reason: Heartburn Enoxaparin Sodium (Enoxaparin Sodium 40 Mg/0.4 Ml Syringe) 40 mg SUBCUT DAILY [facility] [place] Last Admin: 12/29/24 08:15 Dose: 40 mg Documented By: FRANCESCA Fluoxetine HCl (Fluoxetine Hcl 10 Mg Capsule) 10 mg PO DAILY [facility] [place] Last Admin: 12/29/24 08:15 Dose: 10 mg Documented By: FRANCESCA Guaifenesin/Dextromethorphan (Guaifenesin Dm 200/20/10 Ml 10 Ml Syrup) 10 ml PO QID [facility] [place] Last Admin: 12/29/24 12:40 Dose: 10 ml Documented By: PARVIZ Loratadine (Loratadine 10 Mg Tablet) 10 mg PO DAILY [facility] [place] Last Admin: 12/29/24 08:15 Dose: 10 mg Documented By: FRANCESCA Magnesium Hydroxide (Milk Of Magnesia 30 Ml Oral.Susp) 30 ml PO DAILY PRN PRN Reason: Constipation Melatonin (Melatonin 3 Mg Tablet) 6 mg PO BEDTIME PRN PRN Reason: Insomnia Methylprednisolone Sodium Succinate (Methylprednisolone Sod Succ 40 Mg/Ml Vial) 40 mg IVPUSH BID [facility] [place] Last Admin: 12/29/24 08:15 Dose: 40 mg Documented By: FRANCESCA Montelukast Sodium (Montelukast Sodium 10 Mg Tablet) 10 mg PO BEDTIME [facility] [place] Last Admin: 12/28/24 20:14 Dose: 10 mg Documented By: CARLO Ondansetron HCl (Ondansetron Hcl 4 Mg/2 Ml Vial) 4 mg IVPUSH Q8H PRN PRN Reason: Nausea and Vomiting Oseltamivir Phosphate (Oseltamivir Phosphate 75 Mg Capsule) 75 mg PO BID [facility] [place] Stop: 12/31/24 21:01 Last Admin: 12/29/24 08:15 Dose: 75 mg Documented By: FRANCESCA Senna (Sennosides 8.6 Mg Tablet) 17.2 mg PO BEDTIME PRN PRN Reason: Constipation Sodium Chloride (0.9 % Sodium Chloride Flush 3 Ml Syringe) 3 ml IVFLUSH QSHIFT [facility] [place] Last Admin: 12/29/24 08:15 Dose: 3 ml Documented By: FRANCESCA Labs 12/28/24 04:38 12/28/24 04:38 Assessment and Plan (1) Acute respiratory failure with hypoxia: Status: Acute (2) Obesity (BMI 30.0-34.9): Status: Acute (3) Influenza A: Status: Acute Plan 69-year-old female with medical history of asthma (recently started on home oxygen), hypertension, [id number] diabetes mellitus, mood disorder, and mixed hyperlipidemia here with # Acute respiratory failure with hypoxia with acute asthma exacerbation with history of mild persistent asthma due to influenza A infection - persistent symptoms, slowly improving continue with scheduled montelukast, iv steroids 40 mg b.i.d. and Duo Nebs q.4 hours while awake for 1 more day - PRN Albuterol updrafts, scheduled cough medication - Tamiflu end date 12/31 - continue supplemental Oxygen , patient recently discharged on oxygen 2 L at rest and 4 L with activity after suffering from RSV infection in October # Essential Hypertension - continue Amlodipine and Lisinopril # Hyperlipidemia - continue statin # class 1 obesity recommend low-calorie diet DVT: SC Lovenox CODE STATUS: Full code Quality Stroke Does the patient have a stroke diagnosis?: No VTE Prior VTE?: No VTE Risk Level:: Medical - moderate - high VTE Device Contraindication: Treatment Not Indicated VTE Drug Contraindication: N/A - Med Ordered
[2024-12-29] MEDS: Montelukast Sodium 10 MG TABLET PO (21:52)
[2024-12-30 02:55] VITALS: BP 142/80; PULSE 79; RESP 16; TEMP 36.2; O2SAT 96
[2024-12-30 07:52] VITALS: BP 142/82; PULSE 60; RESP 16; TEMP 36.4; O2SAT 96
[2024-12-30 08:11] VITALS: PULSE 76; RESP 20; O2SAT 91
[2024-12-30] MEDS: Albuterol/Iprat 2.5/0.5MG 3 ML AMPUL.NEB INHALE (08:11)
[2024-12-30] MEDS: methylPREDNISolone Sod Succ 40 MG/ML VIAL IVPUSH (08:32)
[2024-12-30] MEDS: Atorvastatin Calcium 80 MG TABLET PO (08:33)
[2024-12-30] MEDS: Loratadine 10 MG TABLET PO (08:33)
[2024-12-30] MEDS: 0.9 % Sodium Chloride Flush 3 ML SYRINGE IVFLUSH (08:33)
[2024-12-30] MEDS: amLODIPine Besylate 5 MG TABLET PO (08:33)
[2024-12-30] MEDS: guaiFENesin DM 200/20/10 ML 10 ML SYRUP PO (08:34)
[2024-12-30] MEDS: lisinopriL 20 MG TABLET PO (08:34)
[2024-12-30] MEDS: FLUoxetine HCl 10 MG CAPSULE PO (08:34)
[2024-12-30] MEDS: Oseltamivir Phosphate 75 MG CAPSULE PO (08:34)
[2024-12-30] MEDS: Enoxaparin Sodium 40 MG/0.4 ML SYRINGE SUBCUT (08:34)
--- NOTE | 2024-12-30 10:31 | MHC.CM.PN ---
PT TO DC HOME WITH [facility] VIA PRIVATE TRANSPORT
[2024-12-30 10:50] VITALS: BP 137/77; PULSE 66; RESP 16; TEMP 36.3; O2SAT 95
== END 2024-12-30 10:55 | disposition home health service (06) | DRG 193 ==
LOC: HO.ED 12-27 02:55 → HO.EDOVER 12-27 04:53 → HO.S3 12-28 10:42
PROVIDERS: Physician Assistant Medical; Admitting Provider Internal Medicine; Emergency Provider Emergency Medicine; PCP Family Medicine; Visit Provider Hospitalist
DX: J10.1 Influenza due to other identified influenza virus with other respiratory manifestations (principal); J96.01 Acute respiratory failure with hypoxia; J45.31 Mild persistent asthma with (acute) exacerbation; I10 Essential (primary) hypertension; E11.9 Type 2 diabetes mellitus without complications; E78.2 Mixed hyperlipidemia; F39 Unspecified mood [affective] disorder; E66.811 Obesity, class 1; Z68.32 Body mass index [BMI] 32.0-32.9, adult; Z71.3 Dietary counseling and surveillance; Z99.81 Dependence on supplemental oxygen; Z20.822 Contact with and (suspected) exposure to COVID-19; Z79.899 Other long term (current) drug therapy
CPT/HCPCS: 0241U; 36415; 71046; 80048; 80076; 83735; 84484; 85025; 85379; 85610; 85730; 93005; 94640; 99221; 99285; J1650; J2919; J3475

== ENCOUNTER → 2024-12-26 16:17 | Outpatient (BNV) | payer MEDICARE, MEDICAID, SELFPAY | PROVIDERS: Visit Provider Radiology Diagnostic Radiology | DX: R07.9 Chest pain, unspecified (principal); R06.02 Shortness of breath | CPT/HCPCS: 71046 ==

== ENCOUNTER → 2024-12-26 16:17 | Outpatient (BNV) | payer MEDICARE, MEDICAID, SELFPAY | PROVIDERS: Admitting Provider Internal Medicine; Emergency Provider Emergency Medicine; PCP Family Medicine; Visit Provider Internal Medicine Cardiovascular Disease | DX: R06.02 Shortness of breath (principal); R00.0 Tachycardia, unspecified; R94.31 Abnormal electrocardiogram [ECG] [EKG] | CPT/HCPCS: 93010 ==

== ENCOUNTER → 2024-12-27 04:41 | Outpatient (BNV) | payer MEDICARE, MEDICAID, SELFPAY | PROVIDERS: Admitting Provider Internal Medicine; Emergency Provider Emergency Medicine; PCP Family Medicine; Visit Provider Internal Medicine | DX: J96.01 Acute respiratory failure with hypoxia (principal); J45.41 Moderate persistent asthma with (acute) exacerbation; J10.1 Influenza due to other identified influenza virus with other respiratory manifestations; I10 Essential (primary) hypertension; E66.811 Obesity, class 1 | CPT/HCPCS: 99222; 99232; 99239; 99499 ==